=== PATIENT | female | born 1980 | race African-American/Black ===

== ENCOUNTER 2025-10-18 12:37 | Outpatient (REF) | payer MEDICAID, SELFPAY ==
--- OUTSIDE RECORDS SUMMARY | 2025-10-18 12:39 | XMS_ITS | Clinical Summary ---
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 aspirin chewable tablet 81 mg Chew and swallow 81 mg by mouth 3 times a week. Every Thursday, Thu, Thursday 1 Active benztropine (COGENTIN) 1 mg tablet Take 1 mg by mouth every night. 1 Active famotidine (PEPCID) 40 mg tablet Take 40 mg by mouth once a day. 1 Active traZODone (DESYREL) 100 mg tablet Take 50 mg by mouth nightly. 1 Active venlafaxine (EFFEXOR) 75 mg tablet Take 112.5 mg by mouth every morning. Provider chagned to XR formulation, no good documentation Active LORazepam (Ativan) 1 mg tablet Take 1 mg by mouth nightly. Active albuterol (PROAIR HFA,VENTOLIN HFA) 90 mcg inhaler Inhale 2 puffs by mouth every 6 hours as needed for wheezing or shortness of breath (via trach). Active acetaminophen (TYLENOL) 325 mg tablet Take 650 mg by mouth every 6 hours as needed for pain or fever. Active divalproex sprinkle (DEPAKOTE SPRINKLE) 125 mg capsule Take 1,750 mg by mouth every night. Active lurasidone (LATUDA) 80 mg tablet Take 80 mg by mouth 2 (two) times a day. Active furosemide (LASIX) 20 mg tablet Take 40 mg by mouth once a day. Active metFORMIN (GLUCOPHAGE) 500 mg tablet Take 1,000 mg by mouth 2 times a day with meals. Active losartan (COZAAR) 25 mg tablet Take 12.5 mg by mouth once a day. Active OLANZapine (ZyPREXA) 5 mg tablet Take 10 mg by mouth nightly. Active OLANZapine (ZyPREXA) 5 mg tablet Take 5 mg by mouth every morning. Active thiamine HCl (VITAMIN B1) 100 mg tablet Take 100 mg by mouth once a day. Active topiramate sprinkle (TOPAMAX SPRINKLE) 25 mg capsule Take 25 mg by mouth 2 times a day. Active simvastatin (ZOCOR) 5 mg tablet Take 1 tablet (5 mg total) by mouth nightly. 5 Active nicotine polacrilex (NICORETTE) [address] 1 each (2 mg total) between cheek and gums every hour as needed for nicotine cravings. 5 Active senna (SENOKOT) 8.6 mg tablet Take 2 tablets (17.2 mg total) by mouth daily as needed for constipation. 5 Active polyethylene glycol 3350 (MIRALAX) 17 gram packet Take 1 packet (17 g total) by mouth once a day. Mix powder in 4 to 8 oz of water, juice, coffee, or tea prior to administration. 5 Active Active Problems Patient Care Coordination No te Formatting of this note migh t be different from the original. [place] Medicaid #[id number] Problem Noted Date Diagnosed Date Nocturnal hypoxia 01/30/2025 Assessment & Plan (02/27/2025 6:06 PM EDT): Patient with drop in O2 saturations in the 60-70's while sleeping on review of continuous pulse ox trends. She has needed up to 6L O2 to maintain saturations. Work-up obtained after patient with high O2 requirements with repeat CXR 01/30 which did note new onset high hemidiaphragms with low lung volumes and underaeration at both bases. Bicarb bas been WNL on BMPs throughout admission. -Continue nocturnal supplemental O2 as per facility policy -Sleep medicine referral placed on discharge. Patient will need sleep study performed. Assessment & Plan (02/27/2025 5:35 PM EDT): Patient with drop in O2 saturations in the 60-70's while sleeping on review of continuous pulse ox trends. She has needed up to 6L O2 to maintain saturations. Work-up obtained after patient with high O2 requirements with repeat CXR 01/30 which did note new onset high hemidiaphragms with low lung volumes and underaeration at both bases. - Continue nocturnal O2 supplementation via NC, and also when napping - Monitor bicarb on BMP as needed - outpt sleep study Assessment & Plan (02/16/2025 4:41 PM EDT): Patient with drop in O2 saturations in the 60-70's while sleeping on review of continuous pulse ox trends. She has needed up to 6L O2 to maintain saturations. Work-up obtained after patient with high O2 requirements with repeat CXR 01/30 which did note new onset high hemidiaphragms with low lung volumes and underaeration at both bases. Pt would benefit from sleep study, however this is unlikely able to be performed inpatient. - Continue nocturnal O2 supplementation via NC, and also when napping - Monitor bicarb on BMP as needed, - Was ordered for polysomnogram on 02/09, however suspect this will need to be performed in the outpatient setting. Will plan to place referral upon discharge. Assessment & Plan (02/15/2025 3:26 PM EDT): Patient with drop in O2 saturations in the 60-70's while sleeping on review of continuous pulse ox trends. She has needed up to 6L O2 to maintain saturations. Work-up obtained after patient with high O2 requirements with repeat CXR 01/30 which did note new onset high hemidiaphragms with low lung volumes and underaeration at both bases. Pt would benefit from sleep study, however this is unlikely able to be performed inpatient. - Continue nocturnal O2 supplementation via NC, and also when napping - Monitor bicarb on BMP as needed, - Was ordered for polysomnogram on 02/09, however suspect this will need to be performed in the outpatient setting. Will plan to place referral upon discharge. Assessment & Plan (02/14/2025 6:02 PM EDT): Patient with drop in O2 saturations in the 60-70's while sleeping on review of continuous pulse ox trends. She has needed up to 6L O2 to maintain saturations. Work-up obtained after patient with high O2 requirements with repeat CXR 01/30 which did note new onset high hemidiaphragms with low lung volumes and underaeration at both bases. Pt would benefit from sleep study, however this is unlikely able to be performed inpatient. - Continue nocturnal O2 supplementation via NC, and also when napping - Monitor bicarb on BMP as needed, - Was ordered for polysomnogram on 02/09, however suspect this will need to be performed in the outpatient setting. Will plan to place referral upon discharge. Assessment & Plan (02/10/2025 12:25 PM EDT): Patient with drop in O2 saturations in the 40's while sleeping on review of continuous pulse ox trends. She has needed up to 6L O2 31 FiO2 to maintain saturations. Work-up obtained after 01/29 --> 7 night after patient with high O2 requirements did note new onset high hemidiaphragms, resulting in low lung volumes. Needing sleep study, and given prolonged hospital stay will try to perform here. - Follow up polysomnogram - Continue nocturnal O2 supplementation via NC, and also when napping - Monitor bicarb on BMP as needed Assessment & Plan (02/09/2025 9:58 AM EDT): Patient with drop in O2 saturations in the 40's while sleeping on review of continuous pulse ox trends. She has needed up to 6L O2 31 FiO2 to maintain saturations. Work-up obtained after 01/29 --> 7 night after patient with high O2 requirements did note new onset high hemidiaphragms, resulting in low lung volumes. Needing sleep study, and given prolonged hospital stay will perform here. -Follow up polysomnogram - Continue nocturnal O2 supplementation via NC, and also when napping - Monitor bicarb on BMP as needed Assessment & Plan (02/07/2025 1:48 PM EDT): Patient with drop in O2 saturations in the 40's while sleeping on review of continuous pulse ox trends. She has needed up to 6L O2 31 FiO2 to maintain saturations. Work-up obtained after 01/29 --> 7 night after patient with high O2 requirements did note new onset high hemidiaphragms, resulting in low lung volumes. Patient will need outpatient sleep study - Continue nocturnal O2 supplementation via NC, and also when napping - Monitor bicarb on BMP as needed Assessment & Plan (02/01/2025 4:26 PM EDT): Patient with drop in O2 saturations in the 40's while sleeping on review of continuous pulse ox trends. She has needed up to 6L O2 31 FiO2 to maintain saturations. Work-up obtained after 01/29 --> 7 night after patient with high O2 requirements did note new onset high hemidiaphragms, resulting in low lung volumes. - Again, patient will need outpatient sleep study - Continue nocturnal O2, and encourage O2 when napping - Monitor bicarb on BMP as needed - As noted under shortness of breath problem, continue to monitor closely and repeat CT PE study pending clinical course. Assessment & Plan (01/31/2025 2:33 PM EDT): Patient with drop in O2 saturations in the 40's while sleeping on review of continuous pulse ox trends. She has needed up to 6L O2 31 FiO2 to maintain saturations. Work-up obtained after 01/29 --> 7 night after patient with high O2 requirements did note new onset high hemidiaphragms, resulting in low lung volumes. - Again, patient will need outpatient sleep study - Continue nocturnal O2, and encourage O2 when napping - Monitor bicarb on BMP as needed - As noted under shortness of breath problem, continue to monitor closely and repeat CT PE study pending clinical course. Assessment & Plan (01/30/2025 5:00 PM EDT): Patient with drop in O2 saturations in the 70's, reported to have been as low as 60's, with sleeping. She has needed up to 6L O2 to maintain saturations. Work-up obtained after 01/29 --> 7 night after patient with high O2 requirements did note new onset high hemidiaphragms, resulting in low lung volumes. - Again, patient will need outpatient sleep study - Continue nocturnal O2, and encourage O2 when napping - Monitor bicarb on BMP as needed Social problem 11/11/2024 Assessment & Plan (02/27/2025 6:02 PM EDT): RESOLVED at time of discharge. Patient with HCP affirmation 01/03/[address]25 [address] plan in place. Assessment & Plan (02/27/2025 5:35 PM EDT): Patient is a resident of [place] and her family resides there currently. Her invoked HCP, brothmayelni Husain, wants her to be placed in [place] LTC. [facility] [employer] completed [place] application september, has not yet been approved. Our SW reached out to [facility] who recommended transfer to [facility] due to residency, family, finances and application all tied to [place]. SW referred pt to [facility]. Patient accepted to [facility]. Bed available on Wednesday 02/28. Will tell the patient of the plan on Tuesday 02/27 in case there are any issues with the discharge. -SW and CM have been working on appropriate placement. -Healthcare agent affirmed 01/03 Assessment & Plan (02/16/2025 4:41 PM EDT): Patient is a resident of [place] and her family resides there currently. Her invoked HCP, brother Rodrigue, wants her to be placed in [place] LTC. [facility] [employer] [facility] completed [place] L[place] application september, has not yet been approved. Our SW reached out to [facility] who recommended transfer to [facility] due to residency, family, finances and application all tied to [place]. SW referred pt to [facility]. -SW and CM have been working on appropriate placement. -Healthcare agent affirmed 01/03 -Pt accepted at [facility] for LTC, awaiting bed availability. Assessment & Plan (02/15/2025 3:26 PM EDT): Patient is a resident of [place] and her family resides there currently. Her invoked HCP, brother Rodrigue, wants her to be placed in [place] LTC. [facility] [employer] [facility] completed [place] L[place] application september, has not yet been approved. Our SW reached out to [facility] who recommended transfer to [facility] due to residency, family, finances and application all tied to [place]. SW referred pt to [facility]. -SW and CM have been working on appropriate placement. -Healthcare agent affirmed 01/03 -Pt accepted at [facility] for LTC, awaiting bed availability. Assessment & Plan (02/14/2025 6:02 PM EDT): Patient is a resident of [place] and her family resides there currently. Her invoked HCP, brother Rodrigue, wants her to be placed in [place] L[place]. [facility] [employer] completed [place] application september, has not yet been approved. Our SW reached out to [facility] who recommended transfer to [facility] due to residency, family, finances and application all tied to [place]. SW referred pt to [facility]. -SW and CM have been working on appropriate placement. -Healthcare agent affirmed 01/03 -Pt accepted at [facility] for LTC, awaiting bed availability. Assessment & Plan (02/10/2025 12:24 PM EDT): Patient is a resident of [place] and her family resides there currently. Her invoked HCP, brother Rodrigue, wants her to be placed [place] L[place]. [facility] [employer] [facility] completed [place] application sept[place], has not yet been approved. Our SW reached out to [facility] who recommended transfer to [facility] due to residency, family, finances and application all tied to [place]. SW referred pt to [facility]. -SW and CM have been working on appropriate placement. -Healthcare agent affirmed 01/03 -Now awaiting bed availability at [facility] for LTC. She has already been accepted but bed has not opened. Assessment & Plan (02/09/2025 9:58 AM EDT): Patient is a resident of [place] and her family resides there currently. Her invoked HCP, lauraer Rodrigue, wants her to be placed in [place] L[place]. [facility] [employer] [facility] completed [place] application sept[place], has not yet been approved. Our SW reached out to [facility] who recommended transfer to [facility] due to residency, family, finances and application all tied to [place]. SW referred pt to [facility]. -SW and CM have been working on appropriate placement. -Healthcare agent affirmed 01/03 -Now awaiting bed availability at [facility] for LTC. She has already been accepted but bed has not opened. Assessment & Plan (02/04/2025 11:56 AM EDT): Patient is a resident of [place] and her family resides there currently. Her invoked HCP, brothmayelin Husain, wants her to be placed [place]. [facility] [facility] completed [place] application sept[place], has not yet been approved. Our SW reached out to [facility] who recommended transfer to [facility] due to residency, family, finances and application all tied to [place]. SW referred pt to [facility]. -SW and CM have been working on appropriate placement. -Healthcare agent affirmed 01/03 -Now awaiting bed availability at [facility] for LTC. She has already been accepted. Assessment & Plan (02/01/2025 4:26 PM EDT): Patient is a resident of [place] and her family resides there currently. Her invoked HCP, brother Rodrigue, wants her to be placed [place]. [facility] [employer] [facility] completed [place] sept[place], has not yet been approved. Our SW reached out to [facility] who recommended transfer to [facility] due to residency, family, finances and application all tied to [place]. SW referred pt to [facility]. -SW and CM have been working on appropriate placement. -Healthcare agent affirmed 01/03 -Now awaiting bed availability at [facility] for LTC, already accepted Assessment & Plan (01/31/2025 11:43 AM EDT): Patient is a resident of [place] and her family resides there currently. Her invoked HCP, brother Rodrigue, wants her to be placed [place]. [facility] [employer] [facility] completed [place] sept[place], has not yet been approved. Our SW reached out to [facility] who recommended transfer to [facility] due to residency, family, finances and application all tied to [place]. SW referred pt to [facility]. -SW and CM have been working on appropriate placement. -Healthcare agent affirmed 01/03 -Now awaiting bed availability at [facility] for LTC, already accepted Assessment & Plan (01/30/2025 5:00 PM EDT): Patient is a resident of [place] and her family resides there currently. Her invoked HCP, brothmayelin Husain, wants her to be placed [place]. [facility] [employer] [facility] completed [place] application sept[place], has not yet been approved. Our SW reached out to [facility] who recommended transfer to [facility] due to residency, family, finances and application all tied to [place]. SW referred pt to [facility]. -SW and CM have been working on appropriate placement. -Healthcare agent affirmed 01/03 -Now awaiting bed availability at [facility] for LTC, already accepted Assessment & Plan (01/08/2025 10:30 AM EDT): Patient is a resident of [place] and her family resides there currently. Her invoked HCP, brother Rodrigue, wants her to be placed [place]. [facility] [employer] [facility] completed [place] sept[place], has not yet been approved. Our SW reached out to [facility] who recommended transfer to [facility] due to residency, family, finances and application all tied to [place]. SW referred pt to [facility]. -SW and CM collaboration for dispo planning. -Healthcare agent affirmed 01/03 -Now awaiting bed availability at [facility] for LTC, already accepted Assessment & Plan (01/07/2025 12:00 PM EDT): Patient is a resident of [place] and her family resides there currently. Her invoked HCP, brother Rodrigue, wants her to be placed [place]. [facility] [employer] [facility] completed [place] sept[place], has not yet been approved. Our SW reached out to [facility] who recommended transfer to [facility] due to residency, family, finances and application all tied to [place]. SW referred pt to [facility]. -SW and CM collaboration for dispo planning. -Healthcare agent affirmed 01/03 -Now awaiting bed availability at [facility] for LTC, already accepted Assessment & Plan (01/06/2025 2:02 AM EDT): Patient is a resident of [place] and her family resides there currently. Her invoked HCP, brother Rodrigue, wants her to be placed [place]. [facility] [employer] [facility] completed [place] sept[place], has not yet been approved. Our SW reached out to [facility] who recommended transfer to [facility] due to residency, family, finances and application all tied to [place]. SW referred pt to [facility]. -SW and CM collaboration for dispo planning. -Healthcare agent affirmed 01/03 -Now awaiting bed availability at [facility] for LTC, already accepted Assessment & Plan (12/30/2024 2:21 PM EST): Patient is a resident of [place] and her family resides there currently. Her invoked HCP, brother Rodrigue, wants her to be placed [place]. Patient was accepted to [facility] 4 years ago, at that time her family wanted placement in [place] however no [place] LTC's would accept. [facility] accepts [place] residents and her stay was being financed through [place] [employer]. [facility] [employer] [facility] completed [place] application september, has not yet been approved. Our SW reached out to [facility] who recommended transfer [place] hospital due to residency, family, finances and application all tied to [place]. Patient's cognition with decline 2/2 anoxic brain injury, however behavioral concerns 2/2 psych diagnoses of schizophrenia and bipolar disorder. Patient was accepted by [facility] for LTC and was waiting an open LTC bed. L[place] Medicaid application completed by [facility] [employer] -SW assisting, now just awaiting LTC bed Assessment & Plan (12/23/2024 11:46 AM EST): Patient is a resident of [place] and her family resides there currently. Her invoked HCP, brother Rodrigue, wants her to be placed in [place] LTC. Patient was accepted to [facility] 4 years ago, at that time her family wanted placement [place] however no [place] LTC's would accept. [facility] accepts [place] residents and [facility] [employer] [facility] completed [place] application september, has not yet been approved. Our SW reached out to [facility] who recommended transfer to [place] hospital due to residency, family, finances and application all tied to [place]. Patient's cognition with decline 2/2 anoxic brain injury, however behavioral concerns 2/2 psych diagnoses of schizophrenia and bipolar disorder. Patient was accepted by [facility] for LTC and was waiting an open LTC bed. L[place] Medicaid application completed by [facility] [employer]. -SW assisting. Assessment & Plan (12/19/2024 11:19 AM EST): Patient is currently awaiting placement in LTC facility. Patient is a resident of [place] and her family resides there currently. Her invoked HCP, brother Rodrigue, wants her to be placed in [place] L[place]. Patient was accepted to [facility] 4 years ago, at that time her family wanted placement [place] however no [place] LTC's would accept. [facility] accepts [place] residents and her stay [facility]. [facility] [employer] [facility] completed [place] application september, has not yet been approved. Our SW reached out to [facility] who recommended transfer to [place] hospital due to residency, family, finances and application all tied to [place]. Patient's cognition with decline 2/2 anoxic brain injury, however behavioral concerns 2/2 psych diagnoses of schizophrenia and bipolar disorder. It is reasonable to think that due to these psychiatric diagnoses causing behavioral disturbances that she will be able to be placed in [facility] facility. Patient accepted by [facility] for LTC but waiting on open LTC bed. L[place] application completed by [facility] [employer]. -SW closely following - Accepted by [facility] for LTC bed placement, TB results from 11/29 resulted negative, only discharge barrier is bed availability currently Assessment & Plan (12/13/2024 4:20 PM EST): Patient is currently awaiting placement in LTC facility. Patient is a resident of [place] and her family resides there currently. Her invoked HCP, brother Rodrigue, wants her to be placed [place]. Patient was accepted to [facility] 4 years ago, at that time her family wanted placement [place] no [place] LTC's would accept. [facility] accepts [place] residents and her stay was being financed through [place] [employer]. [facility] completed [place] LTC application mid September, has not yet been approved. Our SW reached out to [facility] who recommended transfer [place] [facility] due to residency, family, finances and application all tied to [place]. Patient's cognitive with decline 2/2 anoxic brain injury, however behavioral concerns 2/2 psych diagnoses of schizophrenia and bipolar disorder. It is reasonable to think that due to these psychiatric diagnoses causing behavioral disturbances that she will be able to be placed in [facility] facility. Patient accepted by [facility] for LTC but waiting on open LTC bed. L[place] application completed by [facility] [employer]. -SW closely following - Accepted by [facility] for LTC bed placement, TB results from 11/29 resulted negative, only discharge barrier is bed availability currently Assessment & Plan (12/12/2024 5:04 PM EST): Patient is currently awaiting placement in LTC facility. Patient is a resident of [place] and her family resides there currently. Her invoked HCP, brother Rodrigue, wants her to be placed [place]. Patient was accepted to [facility] 4 years ago, at that time her family wanted placement [place] no [place] LTC's would accept. [facility] accepts [place] residents and her stay was being financed through [place] [employer]. [facility] [employer] [facility] completed [place] L[place] application mid September, has not yet been approved. Our SW reached out to [facility] who recommended transfer [place] hospital due to residency, family, finances and application all tied to [place]. Patient's cognitive with decline 2/2 anoxic brain injury, however behavioral concerns 2/2 psych diagnoses of schizophrenia and bipolar disorder. It is reasonable to think that due to these psychiatric diagnoses causing behavioral disturbances that she will be able to be placed in [facility] facility. Patient accepted by [facility] for LTC but waiting on open LTC bed. L[place] application completed by [employer]. -SW closely following - Accepted by [facility] for LTC bed placement, TB results from 11/29 resulted negative, only discharge barrier is bed availability currently Assessment & Plan (12/11/2024 2:18 PM EST): Patient is currently awaiting placement in LTC facility. Patient is a resident of [place] and her family resides there currently. Her invoked HCP, brother Rodrigue, wants her to be placed in [place] LTC. Patient was accepted [facility] 4 years ago, at that time her family wanted placement [place] no [place] LTC's [place] accept. [facility] accepts [place] residents and her stay was being financed through [place] [employer]. [employer] completed [place] LTC application september, has not yet been approved. Our SW reached out to [facility] who [facility] [place] [facility] due to residency, family, finances and application all tied to [place]. Patient's cognitive with decline 2/2 anoxic brain injury, however behavioral concerns 2/2 psych diagnoses of schizophrenia and bipolar disorder. It is reasonable to think that due to these psychiatric diagnoses causing behavioral disturbances that she will be able to be placed in [facility]. Patient accepted by [facility] for LTC but waiting on open LTC bed. L[place] completed by [employer]. -SW closely following - Accepted by [facility] for LTC bed placement, TB results from 11/29 resulted negative, only discharge barrier is bed availability currently Assessment & Plan (12/10/2024 5:07 PM EST): Patient is currently awaiting placement in LTC facility. Patient is a resident of [place] and her family resides there currently. Her invoked HCP, brother Rodrigue, wants her to be placed [place]. Patient was accepted to [facility] 4 years ago, at that time her family wanted [place] no [place] LTC's [place]. [facility] accepts [place] residents and her stay was being financed through [place] [employer]. [employer] completed [place] LTC application september, has not yet been approved. Our SW reached out to [facility] who [facility] due to residency, family, finances and application all tied to [place]. Patient's cognitive with decline 2/2 anoxic brain injury, however behavioral concerns 2/2 psych diagnoses of schizophrenia and bipolar disorder. It is reasonable to think that due to these psychiatric diagnoses causing behavioral disturbances that she will be able to be placed in [facility] facility. Patient accepted by [facility] for LTC but waiting on open LTC bed. L[place] Medicaid [place] completed by [employer]. -SW closely following - Accepted by [facility] for LTC bed placement, TB results from 11/29 resulted negative, only discharge barrier is bed availability currently Assessment & Plan (12/03/2024 2:46 PM EST): Patient is currently awaiting placement in LTC facility. Patient is a resident of [place] and her family resides there currently. Her invoked HCP, brother Rodrigue, wants her to be placed [place]. Patient was accepted to [facility] 4 years ago, at that time her family wanted [place] LTC's [place]. [facility] accepts [place] residents and her stay was being financed through [place] [employer]. [employer] completed [place] LTC application september, has not yet been approved. Our SW reached out to [facility] who [facility] due to residency, family, finances and application all tied to [place]. Patient's cognitive with decline 2/2 anoxic brain injury, however behavioral concerns 2/2 psych diagnoses of schizophrenia and bipolar disorder. It is reasonable to think that due to these psychiatric diagnoses causing behavioral disturbances that she will be able to be placed in [facility] facility. Patient accepted by [facility] for LTC but waiting on open LTC bed. L[place] Medicaid application completed by [employer]. -SW closely following - Accepted by [facility] for LTC bed placement, TB results from 11/29 resulted negative, only discharge barrier is bed availability currently Assessment & Plan (12/02/2024 11:16 AM EST): Patient is currently awaiting placement in LTC facility. Patient is a resident of [place] and her family resides there currently. Her invoked HCP, brother Rodrigue, wants her to be placed [place]. Patient was accepted [facility] 4 years ago, at that time her family wanted [place] LTC's [place]. [facility] accepts [place] residents and her stay was being financed through [employer]. [employer] completed [place] LTC application mid September, has not yet been approved. Our SW reached out to [facility] who [facility] due to residency, family, finances and application all tied to [place]. Patient's cognitive with decline 2/2 anoxic brain injury, however behavioral concerns 2/2 psych diagnoses of schizophrenia and bipolar disorder. It is reasonable to think that due to these psychiatric diagnoses causing behavioral disturbances that she will be able to be placed in [facility] facility. Patient accepted by [facility] for LTC but waiting on open LTC bed. L[place] completed by [employer]. -SW closely following - Accepted by [facility] for LTC bed placement, TB results from 11/29 resulted negative, only discharge barrier is bed availability currently Assessment & Plan (12/01/2024 2:10 PM EST): Patient is currently awaiting placement in LTC facility. Patient is a resident of [place] and her family resides there currently. Her invoked HCP, brother Rodrigue, wants her to be placed [place]. Patient was accepted [facility] 4 years ago, at that time her family wanted [place] no [place] LTC's [place]. [facility] accepts [place] residents and her stay was being financed through [place] [employer]. [employer] completed [place] L[place] application mid September, has not yet been approved. Our SW reached out to [facility] who [facility] due to residency, family, finances and application all tied to [place]. Patient's cognitive with decline 2/2 anoxic brain injury, however behavioral concerns 2/2 psych diagnoses of schizophrenia and bipolar disorder. It is reasonable to think that due to these psychiatric diagnoses causing behavioral disturbances that she will be able to be placed in [facility] facility. Patient accepted by [facility] for LTC but waiting on open LTC bed. LTC [place] Medicaid application completed by [employer]. -SW closely following - Accepted by [facility] for LTC bed placement, pending TB test results (ordered 11/29) Assessment & Plan (11/30/2024 3:53 PM EST): Patient is currently awaiting placement in LTC facility. Patient is a resident of [place] and her family resides there currently. Her invoked HCP, brother Rodrigue, wants her to be placed [place]. Patient was accepted to [facility] 4 years ago, at that time her family wanted [place] LTC's [place]. [facility] accepts [place] residents and her stay was being financed through [place] [employer]. [employer] completed [place] L[place] application mid September, has not yet been approved. Our SW reached out to [facility] who [facility] due to residency, family, finances and application all tied to [place]. Patient's cognitive with decline 2/2 anoxic brain injury, however behavioral concerns 2/2 psych diagnoses of schizophrenia and bipolar disorder. It is reasonable to think that due to these psychiatric diagnoses causing behavioral disturbances that she will be able to be placed in [facility]. Patient accepted by [facility] for LTC but waiting on open LTC bed. L[place] Medicaid application completed by [employer]. -SW closely following - Accepted by [facility] for LTC bed placement, pending TB test results (ordered 11/29) Assessment & Plan (11/29/2024 10:52 AM EST): Patient is currently awaiting placement in LTC facility. Patient is a resident of [place] and her family resides there currently. Her invoked HCP, brother Rodrigue, wants her to be placed [place]. Patient was accepted [facility] 4 years ago, at that time her family wanted [place] no [place] LTC's would [place]. [facility] accepts [place] residents and her stay was being financed through [place] [employer]. [employer] completed [place] L[place] sept[place], has not yet been approved. Our SW reached out to [facility] who [facility] due to residency, family, finances and application all tied to [place]. Patient's cognitive with decline 2/2 anoxic brain injury, however behavioral concerns 2/2 psych diagnoses of schizophrenia and bipolar disorder. It is reasonable to think that due to these psychiatric diagnoses causing behavioral disturbances that she will be able to be placed in [facility] facility. Patient accepted by [facility] for LTC but waiting on open LTC bed. LTC [place] Medicaid application completed by [employer]. -SW closely following - Accepted by [facility] for LTC bed placement, pending TB test results (ordered 11/29) Assessment & Plan (11/28/2024 10:13 AM EST): Patient is currently awaiting placement in LTC facility. Patient is a resident of [place] and her family resides there currently. Her invoked HCP, brother Rodrigue, wants her to be placed [place]. Patient was accepted to [facility] 4 years ago, at that time her family wanted [place] no [place] LTC's would accept. [facility] accepts [place] residents and her stay was being financed through [place] [employer]. [employer] completed [place] L[place] sept[place], has not yet been approved. Our SW reached out to [facility] who [facility] due to residency, family, finances and application all tied to [place]. Patient's cognitive with decline 2/2 anoxic brain injury, however behavioral concerns 2/2 psych diagnoses of schizophrenia and bipolar disorder. It is reasonable to think that due to these psychiatric diagnoses causing behavioral disturbances that she will be able to be placed in [facility] facility. Patient accepted by [facility] for LTC but waiting on open LTC bed. LTC [place] Medicaid application completed by [employer]. -SW closely following - Accepted by [facility] for LTC bed placement. Level 1 PASRR completed. Waiting on Level 2 PASRR and bed availability per SW. Assessment & Plan (11/27/2024 10:04 AM EST): Patient is currently awaiting placement in LTC facility. Patient is a resident of [place] and her family resides there currently. Her invoked HCP, brother Rodrigue, wants her to be placed [place]. Patient was accepted to [facility] 4 years ago, at that time her family wanted [place] no [place] LTC's would accept. [facility] accepts [place] residents and her stay was being financed through [employer]. [employer] completed [place] L[place] application september, has not yet been approved. Our SW reached out to [facility] who [facility] due to residency, family, finances and application all tied to [place]. Patient's cognitive with decline 2/2 anoxic brain injury, however behavioral concerns 2/2 psych diagnoses of schizophrenia and bipolar disorder. It is reasonable to think that due to these psychiatric diagnoses causing behavioral disturbances that she will be able to be placed in [facility] facility. Patient accepted by [facility] for LTC but waiting on open LTC bed. LTC [place] Medicaid application completed by [employer]. -SW closely following - Accepted by [facility] for LTC bed placement. Level 1 PASRR completed. Waiting on Level 2 PASRR and bed availability per SW. Assessment & Plan (11/26/2024 11:05 AM EST): Patient is currently awaiting placement in LTC facility. Patient is a resident of [place] and her family resides there currently. Her invoked HCP, brother Rodrigue, wants her to be placed [place]. Patient was accepted to [facility] 4 years ago, at that time her family wanted [place] no [place] LTC's would accept. [facility] accepts [place] residents and her stay was being financed through [employer]. [employer] completed [place] L[place] application september, has not yet been approved. Our SW reached out to [facility] who [facility] due to residency, family, finances and application all tied to [place]. Patient's cognitive with decline 2/2 anoxic brain injury, however behavioral concerns 2/2 psych diagnoses of schizophrenia and bipolar disorder. It is reasonable to think that due to these psychiatric diagnoses causing behavioral disturbances that she will be able to be placed in [facility]. Patient accepted by [facility] for LTC but waiting on open LTC bed. L[place] Medicaid application completed by [employer]. -SW closely following - Accepted by [facility] for LTC bed placement. Level 1 PASRR completed. Waiting on Level 2 PASRR and bed availability per SW. Assessment & Plan (11/25/2024 12:51 PM EST): Patient is currently awaiting placement in LTC facility. Patient is a resident of [place] and her family resides there currently. Her invoked HCP, brother Rodrigue, wants her to be placed [place]. Patient was accepted to [facility] 4 years ago, at that time her family wanted [place] no [place] LTC's would accept. [facility] accepts [place] residents and her stay was being financed through [place] [employer]. [employer] completed [place] L[place] application mid September, has not yet been approved. Our SW reached out to [facility] who [facility] due to residency, family, finances and application all tied to [place]. Patient's cognitive with decline 2/2 anoxic brain injury, however behavioral concerns 2/2 psych diagnoses of schizophrenia and bipolar disorder. It is reasonable to think that due to these psychiatric diagnoses causing behavioral disturbances that she will be able to be placed in [facility]. Patient accepted by [facility] for LTC but waiting on open LTC bed. L[place] Medicaid application completed by [employer]. -SW closely following - Accepted by [facility] for LTC bed placement. Level 1 PASRR completed. Waiting on Level 2 PASRR and bed availability per SW. Assessment & Plan (11/24/2024 11:53 AM EST): Patient is currently awaiting placement in LTC facility. Patient is a resident of [place] and her family resides there currently. Her invoked HCP, brother Rodrigue, wants her to be placed [place]. Patient was accepted [facility] 4 years ago, at that time her family wanted [place] no [place] LTC's [place] accept. [facility] accepts [place] residents and her stay was being financed through [place] [employer]. [employer] completed [place] L[place] application september, has not yet been approved. Our SW reached out to [facility] who [facility] due to residency, family, finances and application all tied to [place]. Patient's cognitive with decline 2/2 anoxic brain injury, however behavioral concerns 2/2 psych diagnoses of schizophrenia and bipolar disorder. It is reasonable to think that due to these psychiatric diagnoses causing behavioral disturbances that she will be able to be placed in [facility] facility. [facility] but waiting on open LTC bed. LTC [place] Medicaid application completed by [employer]. -SW closely following - Accepted by [facility] for LTC bed placement. Level 1 PASRR completed. Waiting on Level 2 PASRR and bed availability per SW. Assessment & Plan (11/23/2024 2:21 PM EST): Patient is currently awaiting placement in LTC facility. Patient is a resident of [place] and her family resides there currently. Her invoked HCP, brother Rodrigue, wants her to be placed [place]. Patient was accepted to [facility] 4 years ago, at that time her [place] wanted [place] no [place] LTC's would accept. [facility] accepts [place] residents and her stay was being financed through [place] [employer]. [employer] completed [place] L[place] application september, has not yet been approved. Our SW reached out to [facility] who [facility] due to residency, family, finances and application all tied to [place]. Patient's cognitive with decline 2/2 anoxic brain injury, however behavioral concerns 2/2 psych diagnoses of schizophrenia and bipolar disorder. It is reasonable to think that due to these psychiatric diagnoses causing behavioral disturbances that she will be able to be placed in [facility]. [facility] but waiting on open LTC bed. LTC [place] Medicaid application completed by [employer]. -SW closely following - Accepted by [facility] for LTC bed placement. Level 1 PASRR completed. Waiting on Level 2 PASRR and bed availability per SW. Assessment & Plan (11/22/2024 1:16 PM EST): Patient is currently awaiting placement in LTC facility. Patient is a resident of [place] and her family resides there currently. Her invoked HCP, brother Rodrigue, wants her to be placed [place]. Patient was accepted to [facility] 4 years ago, at that time her family wanted [place] no [place] LTC's would accept. [facility] accepts [place] residents and her stay was being financed through [place] [employer]. [employer] completed [place] L[place] application mid September, has not yet been approved. Our SW reached out to [facility] who recommended [facility] due to residency, family, finances and application all tied to [place]. Patient's cognitive with decline 2/2 anoxic brain injury, however behavioral concerns 2/2 psych diagnoses of schizophrenia and bipolar disorder. It is reasonable to think that due to these psychiatric diagnoses causing behavioral disturbances that she will be able to be placed in [facility] facility. Patient accepted by [facility] for LTC but waiting on open LTC bed. LTC [place] Medicaid application completed by [employer]. Level [address] [place] PASRR completed by SW and emailed to Jeff in [place]. Brother has a tour of [facility] on 11/22. -SW closely following Benign skin lesion of face 10/22/2024 Assessment & Plan (12/19/2024 11:18 AM EST): Patient appears to have bilateral hyperpigmentation of her cheeks as well as her mandibular, neck, periorbital regions. These areas are nonblanching, not painful, not pruritic, not infectious appearing. Possible etiology includes acanthosis nigricans of the face, versus melasma. Patient does have diabetes which could be contributing factor. - Monitor for now Assessment & Plan (12/13/2024 4:20 PM EST): Patient appears to have bilateral hyperpigmentation of her cheeks as well as her mandibular, neck, periorbital regions. These areas are nonblanching, not painful, not pruritic, not infectious appearing. Possible etiology includes acanthosis nigricans of the face, versus melasma. Patient does have diabetes which could be contributing factor. - Monitor for now Assessment & Plan (12/12/2024 5:04 PM EST): Patient appears to have bilateral hyperpigmentation of her cheeks as well as her mandibular, neck, periorbital regions. These areas are nonblanching, not painful, not pruritic, not infectious appearing. Possible etiology includes acanthosis nigricans of the face, versus melasma. Patient does have diabetes which could be contributing factor. - Monitor for now Assessment & Plan (12/11/2024 2:18 PM EST): Patient appears to have bilateral hyperpigmentation of her cheeks as well as her mandibular, neck, periorbital regions. These areas are nonblanching, not painful, not pruritic, not infectious appearing. Possible etiology includes acanthosis nigricans of the face, versus melasma. Patient does have diabetes which could be contributing factor. - Monitor for now Assessment & Plan (12/10/2024 5:07 PM EST): Patient appears to have bilateral hyperpigmentation of her cheeks as well as her mandibular, neck, periorbital regions. These areas are nonblanching, not painful, not pruritic, not infectious appearing. Possible etiology includes acanthosis nigricans of the face, versus melasma. Patient does have diabetes which could be contributing factor. - Monitor for now Assessment & Plan (12/03/2024 2:46 PM EST): Patient appears to have bilateral hyperpigmentation of her cheeks as well as her mandibular, neck, periorbital regions. These areas are nonblanching, not painful, not pruritic, not infectious appearing. Possible etiology includes acanthosis nigricans of the face, versus melasma. Patient does have diabetes which could be contributing factor. - Monitor for now Assessment & Plan (12/02/2024 11:14 AM EST): Patient appears to have bilateral hyperpigmentation of her cheeks as well as her mandibular, neck, periorbital regions. These areas are nonblanching, not painful, not pruritic, not infectious appearing. Possible etiology includes acanthosis nigricans of the face, versus melasma. Patient does have diabetes which could be contributing factor. - Monitor for now Assessment & Plan (12/01/2024 2:10 PM EST): Patient appears to have bilateral hyperpigmentation of her cheeks as well as her mandibular, neck, periorbital regions. These areas are nonblanching, not painful, not pruritic, not infectious appearing. Possible etiology includes acanthosis nigricans of the face, versus melasma. Patient does have diabetes which could be contributing factor. - Monitor for now Assessment & Plan (11/30/2024 3:53 PM EST): Patient appears to have bilateral hyperpigmentation of her cheeks as well as her mandibular, neck, periorbital regions. These areas are nonblanching, not painful, not pruritic, not infectious appearing. Possible etiology includes acanthosis nigricans of the face, versus melasma. Patient does have diabetes which could be contributing factor. - Monitor for now Assessment & Plan (11/29/2024 10:52 AM EST): Patient appears to have bilateral hyperpigmentation of her cheeks as well as her mandibular, neck, periorbital regions. These areas are nonblanching, not painful, not pruritic, not infectious appearing. Possible etiology includes acanthosis nigricans of the face, versus melasma. Patient does have diabetes which could be contributing factor. - Monitor for now Assessment & Plan (11/28/2024 10:13 AM EST): Patient appears to have bilateral hyperpigmentation of her cheeks as well as her mandibular, neck, periorbital regions. These areas are nonblanching, not painful, not pruritic, not infectious appearing. Possible etiology includes acanthosis nigricans of the face, versus melasma. Patient does have diabetes which could be contributing factor. - Monitor for now Assessment & Plan (11/27/2024 10:04 AM EST): Patient appears to have bilateral hyperpigmentation of her cheeks as well as her mandibular, neck, periorbital regions. These areas are nonblanching, not painful, not pruritic, not infectious appearing. Possible etiology includes acanthosis nigricans of the face, versus melasma. Patient does have diabetes which could be contributing factor. - Monitor for now Assessment & Plan (11/26/2024 11:05 AM EST): Patient appears to have bilateral hyperpigmentation of her cheeks as well as her mandibular, neck, periorbital regions. These areas are nonblanching, not painful, not pruritic, not infectious appearing. Possible etiology includes acanthosis nigricans of the face, versus melasma. Patient does have diabetes which could be contributing factor. - Monitor for now Assessment & Plan (11/25/2024 12:51 PM EST): Patient appears to have bilateral hyperpigmentation of her cheeks as well as her mandibular, neck, periorbital regions. These areas are nonblanching, not painful, not pruritic, not infectious appearing. Possible etiology includes acanthosis nigricans of the face, versus melasma. Patient does have diabetes which could be contributing factor. - Monitor for now Assessment & Plan (11/24/2024 11:53 AM EST): Patient appears to have bilateral hyperpigmentation of her cheeks as well as her mandibular, neck, periorbital regions. These areas are nonblanching, not painful, not pruritic, not infectious appearing. Possible etiology includes acanthosis nigricans of the face, versus melasma. Patient does have diabetes which could be contributing factor. - Monitor for now Assessment & Plan (11/23/2024 2:21 PM EST): Patient appears to have bilateral hyperpigmentation of her cheeks as well as her mandibular, neck, periorbital regions. These areas are nonblanching, not painful, not pruritic, not infectious appearing. Possible etiology includes acanthosis nigricans of the face, versus melasma. Patient does have diabetes which could be contributing factor. - Monitor for now Assessment & Plan (11/16/2024 2:29 PM EST): Patient appears to have bilateral hyperpigmentation of her cheeks as well as her mandibular, neck, periorbital regions. These areas are nonblanching, not painful, not pruritic, not infectious appearing. Possible etiology includes acanthosis nigricans of the face, versus melasma. Patient does have diabetes which could be contributing factor. - Monitor for now, Derm consult if acute change or findings become concerning Assessment & Plan (11/06/2024 2:12 PM EST): Patient appears to have bilateral hyperpigmentation of her cheeks as well as her mandibular, neck, periorbital regions. These areas are nonblanching, not painful, not pruritic, not infectious appearing. Possible etiology includes acanthosis nigricans of the face, versus melasma. Patient does have diabetes which could be contributing factor. -Monitor for now, Derm consult if acute change or findings become concerning Assessment & Plan (11/05/2024 11:29 AM EST): Patient appears to have bilateral hyperpigmentation of her cheeks as well as her mandibular, neck, periorbital regions. These areas are nonblanching, not painful, not pruritic, not infectious appearing. Possible etiology includes acanthosis nigricans of the face, versus melasma. Patient does have diabetes which could be contributing factor. -Monitor for now, Derm consult if acute change or findings become concerning Assessment & Plan (11/04/2024 10:11 AM EST): Patient appears to have bilateral hyperpigmentation of her cheeks as well as her mandibular, neck, periorbital regions. These areas are nonblanching, not painful, not pruritic, not infectious appearing. Possible etiology includes acanthosis nigricans of the face, versus melasma. Patient does have diabetes which could be contributing factor. -Monitor for now, Derm consult if acute change or findings become concerning Assessment & Plan (11/03/2024 10:30 AM EST): Patient appears to have bilateral hyperpigmentation of her cheeks as well as her mandibular, neck, periorbital regions. These areas are nonblanching, not painful, not pruritic, not infectious appearing. Possible etiology includes acanthosis nigricans of the face, versus melasma. Patient does have diabetes which could be contributing factor. -Monitor for now, Derm consult if acute change or findings become concerning Assessment & Plan (10/24/2024 2:20 PM EST): Patient appears to have bilateral hyperpigmentation of her cheeks as well as her mandibular, neck, periorbital regions. These areas are nonblanching, not painful, not pruritic, not infectious appearing. Possible etiology includes acanthosis nigricans of the face, versus melasma. Patient does have diabetes which could be contributing factor. Currently rechecking hemoglobin A1c to determine if patient needs to be better controlled. -Monitor for now, Derm consult if acute change or findings become concerning Assessment & Plan (10/23/2024 11:08 AM EST): Patient appears to have bilateral hyperpigmentation of her cheeks as well as her mandibular, neck, periorbital regions. These areas are nonblanching, not painful, not pruritic, not infectious appearing. Possible etiology includes acanthosis nigricans of the face, versus melasma. Patient does have diabetes but has been well- controlled during this admission. -Monitor for now, Derm consult if acute change or findings become concerning Assessment & Plan (10/22/2024 2:58 PM EST): Patient appears to have bilateral hyperpigmentation of her cheeks as well as her mandibular, neck, periorbital regions. These areas are nonblanching, not painful, not pruritic, not infectious appearing. Possible etiology includes acanthosis nigricans of the face, versus melasma. Patient does have diabetes but has been well- controlled during this admission. -Monitor for now, Derm consult if acute change or findings become concerning Tachycardia 09/02/2024 Assessment & Plan (12/14/2024 4:31 PM EST): Notably found to be persistently tachycardic in the 90-110s. Asymptomatic. TTE unremarkable, LVEF of 60% no valvular disease. Serial EKGs showing sinus tachycardia. DDX: medication induced (benztropine, Depakote, Latuda) versus undiagnosed sleep apnea -Recommend outpatient sleep study Assessment & Plan (12/13/2024 4:20 PM EST): Notably found to be persistently tachycardic in the 90-110s. Asymptomatic. TTE unremarkable, LVEF of 60% no valvular disease. Serial EKGs showing sinus tachycardia. DDX: medication induced (benztropine, Depakote, Latuda) Vs 2/2 undiagnosed sleep apnea -Recommend outpatient sleep study Assessment & Plan (12/12/2024 5:04 PM EST): Notably found to be persistently tachycardic in the 90-110s. Asymptomatic. TTE unremarkable, LVEF of 60% no valvular disease. Serial EKGs showing sinus tachycardia. DDX: medication induced (benztropine, Depakote, Latuda) Vs 2/2 undiagnosed sleep apnea -Recommend outpatient sleep study Assessment & Plan (12/11/2024 2:18 PM EST): Notably found to be persistently tachycardic in the 90-110s. Asymptomatic. TTE unremarkable, LVEF of 60% no valvular disease. Serial EKGs showing sinus tachycardia. DDX: medication induced (benztropine, Depakote, Latuda) Vs 2/2 undiagnosed sleep apnea -Recommend outpatient sleep study Assessment & Plan (12/10/2024 5:07 PM EST): Notably found to be persistently tachycardic in the 90-110s. Asymptomatic. TTE unremarkable, LVEF of 60% no valvular disease. Serial EKGs showing sinus tachycardia. DDX: medication induced (benztropine, Depakote, Latuda) Vs 2/2 undiagnosed sleep apnea -Recommend outpatient sleep study Assessment & Plan (12/03/2024 2:46 PM EST): Notably found to be persistently tachycardic in the 90-110s. Asymptomatic. TTE unremarkable, LVEF of 60% no valvular disease. Serial EKGs showing sinus tachycardia. DDX: medication induced (benztropine, Depakote, Latuda) Vs 2/2 undiagnosed sleep apnea -Recommend outpatient sleep study Assessment & Plan (12/02/2024 11:14 AM EST): Notably found to be persistently tachycardic in the 90-110s. Asymptomatic. TTE unremarkable, LVEF of 60% no valvular disease. Serial EKGs showing sinus tachycardia. DDX: medication induced (benztropine, Depakote, Latuda) Vs 2/2 undiagnosed sleep apnea -Recommend outpatient sleep study Assessment & Plan (12/01/2024 2:10 PM EST): Notably found to be persistently tachycardic in the 90-110s. Asymptomatic. TTE unremarkable, LVEF of 60% no valvular disease. Serial EKGs showing sinus tachycardia. DDX: medication induced (benztropine, Depakote, Latuda) Vs 2/2 undiagnosed sleep apnea -Recommend outpatient sleep study Assessment & Plan (11/30/2024 3:53 PM EST): Notably found to be persistently tachycardic in the 90-110s. Asymptomatic. TTE unremarkable, LVEF of 60% no valvular disease. Serial EKGs showing sinus tachycardia. DDX: medication induced (benztropine, Depakote, Latuda) Vs 2/2 undiagnosed sleep apnea -Recommend outpatient sleep study Assessment & Plan (11/29/2024 10:52 AM EST): Notably found to be persistently tachycardic in the 90-110s. Asymptomatic. TTE unremarkable, LVEF of 60% no valvular disease. Serial EKGs showing sinus tachycardia. DDX: medication induced (benztropine, Depakote, Latuda) Vs 2/2 undiagnosed sleep apnea -Recommend outpatient sleep study Assessment & Plan (11/28/2024 10:13 AM EST): Notably found to be persistently tachycardic in the 90-110s. Asymptomatic. TTE unremarkable, LVEF of 60% no valvular disease. Serial EKGs showing sinus tachycardia. DDX: medication induced (benztropine, Depakote, Latuda) Vs 2/2 undiagnosed sleep apnea -Recommend outpatient sleep study Assessment & Plan (11/27/2024 10:04 AM EST): Notably found to be persistently tachycardic in the 90-110s. Asymptomatic. TTE unremarkable, LVEF of 60% no valvular disease. Serial EKGs showing sinus tachycardia. DDX: medication induced (benztropine, Depakote, Latuda) Vs 2/2 undiagnosed sleep apnea -Recommend outpatient sleep study Assessment & Plan (11/26/2024 11:05 AM EST): Notably found to be persistently tachycardic in the 90-110s. Asymptomatic. TTE unremarkable, LVEF of 60% no valvular disease. Serial EKGs showing sinus tachycardia. DDX: medication induced (benztropine, Depakote, Latuda) Vs 2/2 undiagnosed sleep apnea -Recommend outpatient sleep study Assessment & Plan (11/25/2024 12:51 PM EST): Notably found to be persistently tachycardic in the 90-110s. Asymptomatic. TTE unremarkable, LVEF of 60% no valvular disease. Serial EKGs showing sinus tachycardia. DDX: medication induced (benztropine, Depakote, Latuda) Vs 2/2 undiagnosed sleep apnea -Recommend outpatient sleep study Assessment & Plan (11/24/2024 11:53 AM EST): Notably found to be persistently tachycardic in the 90-110s. Asymptomatic. TTE unremarkable, LVEF of 60% no valvular disease. Serial EKGs showing sinus tachycardia. DDX: medication induced (benztropine, Depakote, Latuda) Vs 2/2 undiagnosed sleep apnea -Recommend outpatient sleep study Assessment & Plan (11/23/2024 2:21 PM EST): Notably found to be persistently tachycardic in the 90-110s. Asymptomatic. TTE unremarkable, LVEF of 60% no valvular disease. Serial EKGs showing sinus tachycardia. DDX: medication induced (benztropine, Depakote, Latuda) Vs 2/2 undiagnosed sleep apnea -Recommend outpatient sleep study Assessment & Plan (11/16/2024 2:28 PM EST): Notably found to be persistently tachycardic in the 90-110s. Asymptomatic. TTE unremarkable, LVEF of 60% no valvular disease. Serial EKGs showing sinus tachycardia. DDX: medication induced (benztropine, Depakote, Latuda) Vs 2/2 undiagnosed sleep apnea -Recommend outpatient sleep study Assessment & Plan (11/06/2024 2:57 PM EST): Notably found to be persistently tachycardic in the 90-110s. Asymptomatic. TTE unremarkable, LVEF of 60% no valvular disease. Serial EKGs showing sinus tachycardia. DDX: medication induced (benztropine, Depakote, Latuda) Vs 2/2 undiagnosed sleep apnea -Recommend outpatient sleep study. Assessment & Plan (11/05/2024 11:29 AM EST): Patient has been intermittently tachycardic 100-110's. Asymptomatic. She is satting well on RA and is without BLE swelling/pain/erythema, low suspicion for PE. TTE on 09/06 was unremarkable, with LVEF 60%, no WMA, no hemodynamically significant valvular disease. Patient has had multiple EKGs that are sinus/sinus tach. No palpitations or chest pain. Could possibly be side effects of psych meds including benztropine, Depakote, Latuda. Vs 2/2 undiagnosed sleep apnea -Monitor clinically Assessment & Plan (11/04/2024 10:11 AM EST): Patient has been intermittently tachycardic 100-110's. Asymptomatic. She is satting well on RA and is without BLE swelling/pain/erythema, low suspicion for PE. TTE on 09/06 was unremarkable, with LVEF 60%, no WMA, no hemodynamically significant valvular disease. Patient has had multiple EKGs that are sinus/sinus tach. No palpitations or chest pain. Could possibly be side effects of psych meds including benztropine, Depakote, Latuda. Vs 2/2 undiagnosed sleep apnea -Monitor clinically Assessment & Plan (11/03/2024 10:30 AM EST): Patient has been intermittently tachycardic 100-110's. Asymptomatic. She is satting well on RA and is without BLE swelling/pain/erythema, low suspicion for PE. TTE on 09/06 was unremarkable, with LVEF 60%, no WMA, no hemodynamically significant valvular disease. Patient has had multiple EKGs that are sinus/sinus tach. No palpitations or chest pain. -Could possibly be side effects of psych meds including benztropine, Depakote, Latuda. -Monitor clinically Assessment & Plan (10/24/2024 2:19 PM EST): Patient has been intermittently been tachycardic in the 100-110's. Asymptomatic. She is satting well on RA and is without BLE swelling/pain/erythema, low suspicion for PE contributing. TTE on 09/06 was unremarkable, with LVEF 60%, no WMA, no hemodynamically significant valvular disease. Patient has had multiple EKGs that are sinus/sinus tach most recently on 09/15. No palpitations, chest pain, visual changes. -Could possibly be side effects of psych meds including benztropine, Depakote, Latuda. -Monitor clinically Assessment & Plan (10/23/2024 11:10 AM EST): Patient has been intermittently been tachycardic in the 100-110's. Asymptomatic. She is satting well on RA and is without BLE swelling/pain/erythema, low suspicion for PE contributing. TTE on 09/06 was unremarkable, with LVEF 60%, no WMA, no hemodynamically significant valvular disease. Patient has had multiple EKGs that are sinus/sinus tach most recently on 09/15. No palpitations, chest pain, visual changes. -Could possibly be side effects of psych meds including benztropine, Depakote, Latuda. -Monitor clinically Assessment & Plan (10/14/2024 5:09 PM EST): Patient has been intermittently been tachycardic in the 100-110's. Asymptomatic. She is satting well on RA and is without BLE swelling/pain/erythema, low suspicion for PE contributing. Patient has had multiple EKGs that are sinus/sinus tach most recently on 09/15. Patient agreeable to TTE on 09/06 and this study was unremarkable, with LVEF 60%, no WMA, no hemodynamically significant valvular disease. -Could possibly be side effects of psych meds including benztropine, Depakote, Latuda. Assessment & Plan (09/30/2024 4:48 PM EST): Throughout admission, patient has been intermittently been tachycardic in the 100-110's. Patient asymptomatic. She is satting well on RA and is without BLE swelling/pain/erythema. Patient has had multiple EKGs that are sinus/sinus tach most recently on 09/15. Unclear if tachycardic readings are taken when patient is at rest, or is taken after any form of activity. Patient agreeable to TTE on 09/06 and this study was unremarkable, with LVEF 60%, no WMA, no hemodynamically significant valvular disease. -Possibly SE of psych meds including benztropine, Depakote, Latuda. -Patient has occasionally refused lovenox injections. If patient should become hypoxic or have concerns for peripheral DVT, will work-up for possible PE. Assessment & Plan (09/29/2024 1:51 PM EST): Throughout admission, patient has been intermittently been tachycardic in the 100-110's. Patient asymptomatic. She is satting well on RA and is without BLE swelling/pain/erythema. Patient has had multiple EKGs that are sinus/sinus tach most recently on 09/15. Unclear if tachycardic readings are taken when patient is at rest, or is taken after any form of activity. Patient agreeable to TTE on 09/06 and this study was unremarkable, with LVEF 60%, no WMA, no hemodynamically significant valvular disease. -Possibly SE of psych meds including benztropine, Depakote, Latuda. -Patient has occasionally refused lovenox injections. If patient should become hypoxic or have concerns for peripheral DVT, will work-up for possible PE. Assessment & Plan (09/28/2024 2:31 PM EST): Throughout admission, patient has been intermittently been tachycardic in the 100-110's. Patient asymptomatic. She is satting well on RA and is without BLE swelling/pain/erythema. Patient has had multiple EKGs that are sinus/sinus tach most recently on 09/06. Unclear if tachycardic readings are taken when patient is at rest, or is taken after any form of activity. Patient agreeable to TTE on 09/06 and this study was unremarkable, with LVEF 60%, no WMA, no hemodynamically significant valvular disease. -Possibly SE of psych meds including benztropine, Depakote, Latuda. -Patient has occasionally refused lovenox injections. If patient should become hypoxic or have concerns for peripheral DVT, will work-up for possible PE. Assessment & Plan (09/11/2024 11:00 AM EST): Throughout admission, patient has been intermittently been tachycardic in the 100-110's. Patient asymptomatic. She is satting well on RA and is without BLE swelling/pain/erythema. Patient has had multiple EKGs that are sinus/sinus tach most recently on 09/06. Unclear if tachycardic readings are taken when patient is at rest, or is taken after any form of activity. Patient agreeable to TTE on 09/06 and this study was unremarkable, with LVEF 60%, no WMA, no hemodynamically significant valvular disease. -Possibly SE of psych meds including benztropine, Depakote, Latuda. -Patient has occasionally refused lovenox injections. If patient should become hypoxic or have concerns for peripheral DVT, will work-up for possible PE. Assessment & Plan (09/10/2024 12:27 PM EST): Throughout admission, patient has been intermittently been tachycardic in the 100-110's. Patient asymptomatic. She is satting well on RA and is without BLE swelling/pain/erythema. Patient has had multiple EKGs that are sinus/sinus tach most recently on 09/06. Unclear if tachycardic readings are taken when patient is at rest, or is taken after any form of activity. Patient agreeable to TTE on 09/06 and this study was unremarkable, with LVEF 60%, no WMA, no hemodynamically significant valvular disease. -Possibly SE of psych meds including benztropine, Depakote, Latuda. -Patient has occasionally refused lovenox injections. If patient should become hypoxic or have concerns for peripheral DVT, will work-up for possible PE. Assessment & Plan (09/09/2024 9:24 PM EST): Throughout admission, patient has intermittently been tachycardic in the 100- 110's. Patient asymptomatic. She is satting well on RA and is without BLE swelling/pain/erythema. Patient has had multiple EKGs that are sinus/sinus tach most recently on 09/06. Unclear if tachycardic readings are taken when patient is at rest, or is taken after any form of activity. Patient agreeable to TTE on 09/06 and this study was unremarkable, with LVEF 60%, no WMA, no hemodynamically significant valvular disease. - Possibly SE of psych meds including benztropine, Depakote, Latuda. -Patient has occasionally refused lovenox injections. If patient should become hypoxic or have concerns for peripheral DVT, will work-up for possible PE. Assessment & Plan (09/02/2024 3:09 PM EST): Throughout admission, patient has intermittently been tachycardic in the 100's, 110's. Patient asymptomatic. She is satting well on RA and is without BLE swelling/pain/erythema. Patient has had multiple EKGs that are sinus/sinus tach. Unclear if tachycardic readings are taken when patient is at rest, or is taken after any form of activity. -TTE ordered -If patient tachycardic on AM labs on 09/03, will order EKG -Patient has occasionally refused lovenox injections. If patient should become hypoxic or have concerns for peripheral DVT, will work-up for possible PE. Primary hypertension 09/02/2024 Assessment & Plan (02/27/2025 6:01 PM EDT): History of HTN with regimen adjusted to losartan 12.5 mg daily and Lasix 40 mg daily during recent hospitalization. BP with improved control, however, transiently elevated 02/19. Repeat readings improved. On discharge: - Continue losartan 12.5 mg and lasix 40 mg daily - Continue to monitor BP and adjust antihypertensive regimen as needed Assessment & Plan (02/27/2025 5:35 PM EDT): History of HTN with regimen adjusted to losartan 12.5 mg daily and Lasix 40 mg daily during recent hospitalization. BP with improved control, however, transiently elevated 02/19. Repeat readings improved. - Continue losartan 12.5 mg and lasix 40 mg daily - Continue to monitor BP and adjust antihypertensive regimen as needed Assessment & Plan (02/16/2025 4:41 PM EDT): History of HTN with regimen adjusted to losartan 12.5 mg daily and Lasix 40 mg daily during recent hospitalization. BP with improved control. - Continue losartan 12.5 mg and lasix 40 mg daily - Continue to monitor BP and adjust antihypertensive regimen as needed Assessment & Plan (02/15/2025 3:26 PM EDT): History of HTN with regimen adjusted to losartan 12.5 mg daily and Lasix 40 mg daily during recent hospitalization. BP with improved control. - Continue losartan 12.5 mg and lasix 40 mg daily - Continue to monitor BP and adjust antihypertensive regimen as needed Assessment & Plan (02/14/2025 6:02 PM EDT): History of HTN with regimen adjusted to losartan 12.5 mg daily and Lasix 40 mg daily during recent hospitalization. BP with improved control. - Continue losartan 12.5 mg and lasix 40 mg daily - Continue to monitor BP and adjust antihypertensive regimen as needed Assessment & Plan (02/10/2025 12:27 PM EDT): History of HTN with regimen adjusted to losartan 12.5 mg daily and Lasix 40 mg daily during recent hospitalization. BP with improved control. - Continue losartan 12.5 mg and lasix 40 mg daily - Continue to monitor BP and adjust antihypertensive regimen as needed Assessment & Plan (02/09/2025 9:57 AM EDT): History of HTN with regimen adjusted to losartan 12.5 mg daily and Lasix 40 mg daily during recent hospitalization. BP with improved control. - Continue losartan and lasix - Continue to monitor BP and adjust antihypertensive regimen as needed Assessment & Plan (02/07/2025 1:48 PM EDT): History of HTN with regimen adjusted to losartan 12.5 mg daily and Lasix 40 mg daily during recent hospitalization. BP with improved control. - Continue losartan and lasix - Continue to monitor BP and adjust antihypertensive regimen as needed Assessment & Plan (02/01/2025 4:26 PM EDT): History of HTN with regimen adjusted to losartan 12.5 mg daily and Lasix 40 mg daily during recent hospitalization. BP with improved control. - Continue losartan and lasix - Trend BP and adjust antihypertensive regimen accordingly Assessment & Plan (01/31/2025 11:43 AM EDT): History of HTN with regimen adjusted to losartan 12.5 mg daily and Lasix 40 mg daily during recent hospitalization. BP with improved control. - Continue losartan and lasix - Trend BP and adjust antihypertensive regimen accordingly Assessment & Plan (01/30/2025 5:00 PM EDT): History of HTN with regimen adjusted to losartan 12.5 mg daily and Lasix 40 mg daily during recent hospitalization. BP with improved control. - Continue losartan and lasix - Trend BP and adjust antihypertensive regimen accordingly Assessment & Plan (01/08/2025 10:31 AM EDT): History of HTN with regimen adjusted to losartan 12.5 mg daily and Lasix 40 mg daily during recent hospitalization. BP with improved control. - Continue losartan and lasix - Trend BP and adjust antihypertensive regimen accodingly Assessment & Plan (01/07/2025 12:00 PM EDT): History of HTN with regimen adjusted to losartan 12.5 mg daily and Lasix 40 mg daily during recent hospitalization. BP with improved control. - Continue losartan and lasix - Trend BP and adjust antihypertensive regimen accodingly Assessment & Plan (12/31/2024 12:02 PM EST): History of HTN with regimen adjusted to losartan 12.5 mg daily and Lasix 40 mg daily during recent hospitalization. BP with improved control. - Continue losartan and lasix - Trend BP and adjust antihypertensive regimen accodingly Assessment & Plan (12/30/2024 2:21 PM EST): - Continue losartan 12.5 mg daily, Lasix 40 mg daily Assessment & Plan (12/23/2024 11:46 AM EST): - Continue losartan 12.5 mg daily, Lasix 40 mg daily Assessment & Plan (12/19/2024 11:18 AM EST): History of HTN. [facility] had patient on Lasix, however patient is not sure what this was prescribed for. Lower extremities have been without edema. TTE 09/06 was unremarkable. Throughout admission, patient has had variable SBP readings but trending ~150 systolic. Initially started on lisinopril, however frequently complaining of dry cough so lisinopril 5mg daily dc'd 2/5 with improvement. Losartan started as BP remains elevated to 150-160 range. -Continue on Losartan 12.5 mg daily - Continue lasix 40mg daily -Discontinued lisinopril, started -Continue to monitor and adjust antihypertensive as warranted Assessment & Plan (12/13/2024 4:20 PM EST): History of HTN. [facility] had patient on Lasix, however patient is not sure what this was prescribed for. Lower extremities have been without edema. TTE 09/06 was unremarkable.Throughout admission, patient has had variable SBP readings but trending ~150 systolic. Frequently complaining of dry cough so lisinopril 5mg daily dc'd 2/5 with improvement. Losartan started as BP remains elevated to 150-160 range. -Discontinued lisinopril, started Losartan 12.5 mg daily -Continue to monitor and adjust anti-HTNives as warranted Assessment & Plan (12/12/2024 5:04 PM EST): History of HTN. [facility] had patient on Lasix, however patient is not sure what this was prescribed for. Lower extremities have been without edema. TTE 09/06 was unremarkable.Throughout admission, patient has had variable SBP readings but trending ~150 systolic. Frequently complaining of dry cough so lisinopril 5mg daily dc'd 2/5 with improvement. Losartan started as BP remains elevated to 150-160 range. -Discontinued lisinopril, started Losartan 12.5 mg daily -Continue to monitor and adjust anti-HTNives as warranted Assessment & Plan (12/11/2024 2:18 PM EST): History of HTN. Facility [facility] had patient on Lasix, however patient is not sure what this was prescribed for. Lower extremities have been without edema. TTE 09/06 was unremarkable.Throughout admission, patient has had variable SBP readings but trending ~150 systolic. Frequently complaining of dry cough so lisinopril 5mg daily dc'd 2/5 with improvement. Losartan started as BP remains elevated to 150-160 range. -Discontinued lisinopril, started Losartan 12.5 mg daily -Continue to monitor and adjust anti-HTNives as warranted Assessment & Plan (12/10/2024 5:07 PM EST): History of HTN. Facility [facility] had patient on Lasix, however patient is not sure what this was prescribed for. Lower extremities have been without edema. TTE 09/06 was unremarkable.Throughout admission, patient has had variable SBP readings but trending ~150 systolic. Frequently complaining of dry cough so lisinopril 5mg daily dc'd 2/5 with improvement. Losartan started as BP remains elevated to 150-160 range. -Discontinued lisinopril, started Losartan 12.5 mg daily -Continue to monitor and adjust anti-HTNives as warranted Assessment & Plan (12/08/2024 11:49 AM EST): History of HTN. [facility] had patient on Lasix, however patient is not sure what this was prescribed for. Lower extremities have been without edema. TTE 09/06 was unremarkable.Throughout admission, patient has had variable SBP readings but trending ~150 systolic. Frequently complaining of dry cough so lisinopril 5mg daily dc'd 2/5 with improvement. Losartan started as BP remains elevated to 150-160 range. -Discontinued lisinopril 5mg daily 11/30/24 in setting of dry cough with no other infectious causes. -Started lisinopril 12.5mg daily 12/07 with good BP control, titrate prn -Continue to monitor and adjust anti-HTNives as warranted Assessment & Plan (12/02/2024 11:14 AM EST): History of HTN. [facility] had patient on Lasix, however patient is not sure what this was prescribed for. Lower extremities have been without edema. Throughout admission, patient has had variable SBP readings but trending ~150 systolic. TTE 09/06 was unremarkable. - Started lisinopril 5mg daily 10/30/24 - Continue to monitor and adjust anti-HTNives as warranted Assessment & Plan (12/01/2024 2:10 PM EST): History of HTN. [facility] had patient on Lasix, however patient is not sure what this was prescribed for. Lower extremities have been without edema. Throughout admission, patient has had variable SBP readings but trending ~150 systolic. TTE 09/06 was unremarkable. - Started lisinopril 5mg daily 10/30/24 - Continue to monitor and adjust anti-HTNives as warranted Assessment & Plan (11/30/2024 3:53 PM EST): History of HTN. [facility] had patient on Lasix, however patient is not sure what this was prescribed for. Lower extremities have been without edema. Throughout admission, patient has had variable SBP readings but trending ~150 systolic. TTE 11 was unremarkable. - Started lisinopril 5mg daily 10/30/24 - Continue to monitor and adjust anti-HTNives as warranted Assessment & Plan (11/29/2024 10:52 AM EST): History of HTN. [facility] had patient on Lasix, however patient is not sure what this was prescribed for. Lower extremities have been without edema. Throughout admission, patient has had variable SBP readings but trending ~150 systolic. TTE 11 was unremarkable. - Started lisinopril 5mg daily 10/30/24 - Continue to monitor and adjust anti-HTNives as warranted Assessment & Plan (11/28/2024 10:13 AM EST): History of HTN. [facility] had patient on Lasix, however patient is not sure what this was prescribed for. Lower extremities have been without edema. Throughout admission, patient has had variable SBP readings but trending ~150 systolic. TTE 11 was unremarkable. - Started lisinopril 5mg daily 10/30/24 - Continue to monitor and adjust anti-HTNives as warranted Assessment & Plan (11/27/2024 10:04 AM EST): History of HTN. [facility] had patient on Lasix, however patient is not sure what this was prescribed for. Lower extremities have been without edema. Throughout admission, patient has had variable SBP readings but trending ~150 systolic. TTE 09/06 was unremarkable. - Started lisinopril 5mg daily 10/30/24 - Continue to monitor and adjust anti-HTNives as warranted Assessment & Plan (11/26/2024 11:05 AM EST): History of HTN. [facility] had patient on Lasix, however patient is not sure what this was prescribed for. Lower extremities have been without edema. Throughout admission, patient has had variable SBP readings but trending ~150 systolic. TTE 11 was unremarkable. - Started lisinopril 5mg daily 10/30/24 - Continue to monitor and adjust anti-HTNives as warranted Assessment & Plan (11/25/2024 12:51 PM EST): History of HTN. [facility] had patient on Lasix, however patient is not sure what this was prescribed for. Lower extremities have been without edema. Throughout admission, patient has had variable SBP readings but trending ~150 systolic. TTE 11 was unremarkable. - Started lisinopril 5mg daily 10/30/24 - Continue to monitor and adjust anti-HTNives as warranted Assessment & Plan (11/24/2024 11:53 AM EST): History of HTN. [facility] had patient on Lasix, however patient is not sure what this was prescribed for. Lower extremities have been without edema. Throughout admission, patient has had variable SBP readings but trending ~150 systolic. TTE 09/06 was unremarkable. - Started lisinopril 5mg daily 10/30/24 - Continue to monitor and adjust anti-HTNives as warranted Assessment & Plan (11/23/2024 2:21 PM EST): History of HTN. [facility] had patient on Lasix, however patient is not sure what this was prescribed for. Lower extremities have been without edema. Throughout admission, patient has had variable SBP readings but trending ~150 systolic. TTE 09/06 was unremarkable. - Started lisinopril 5mg daily 10/30/24 - Continue to monitor and adjust anti-HTNives as warranted Assessment & Plan (11/16/2024 2:28 PM EST): History of HTN. [facility] had patient on Lasix, however patient is not sure what this was prescribed for. Lower extremities have been without edema. Throughout admission, patient has had variable SBP readings but trending ~150 systolic. TTE 09/06 was unremarkable. - Started lisinopril 5mg daily 10/30/24 - Continue to monitor and adjust anti-HTNives as warranted Assessment & Plan (11/06/2024 2:12 PM EST): History of HTN. [facility] had patient on Lasix, however patient is not sure what this was prescribed for. Throughout admission, patient has had variable SBP readings but trending ~150 systolic. TTE 09/06 was unremarkable. -started lisinopril 5mg daily 10/30 -Could consider BB given tachycardia -Lasix was continued on admission. Assessment & Plan (11/05/2024 11:29 AM EST): History of HTN. [facility] had patient on Lasix, however patient is not sure what this was prescribed for. Throughout admission, patient has had variable SBP readings but trending ~150 systolic. TTE 09/06 was unremarkable. -started lisinopril 5mg daily 1/5 -Could consider BB given tachycardia -Lasix was continued on admission. Assessment & Plan (11/04/2024 10:11 AM EST): History of HTN. [facility] had patient on Lasix, however patient is not sure what this was prescribed for. Throughout admission, patient has had variable SBP readings but trending ~150 systolic. TTE 11/12 was unremarkable. -started lisinopril 5mg daily 1/5 -Could consider BB given tachycardia -Lasix was continued on admission. Assessment & Plan (11/03/2024 10:30 AM EST): History of HTN. [facility] had patient on Lasix, however patient is not sure what this was prescribed for. Throughout admission, patient has had variable SBP readings but trending ~150 systolic. TTE 11/12 was unremarkable. -start lisinopril 5mg daily 1/5 - Could consider BB given tachycardia -Lasix was continued on admission. Will continue lasix 40 mg daily for now Assessment & Plan (10/24/2024 2:19 PM EST): History of HTN. [facility] had patient on Lasix, however patient is not sure what this was prescribed for. Throughout admission, patient has had variable SBP readings but generally normotensive. TTE 1112 was unremarkable. -Defer starting antihypertensive medication for the time being -Lasix was continued on admission. Will continue 40 mg daily for now Assessment & Plan (10/23/2024 11:08 AM EST): History of HTN. [facility] had patient on Lasix, however patient is not sure what this was prescribed for. Throughout admission, patient has had variable SBP readings but generally normotensive. TTE 11/12 was unremarkable. -Defer starting antihypertensive medication for the time being -Lasix was continued on admission. Will continue 40 mg daily for now Assessment & Plan (10/14/2024 5:08 PM EST): History of HTN. [facility] had patient on Lasix, however patient is not sure what this was prescribed for. Throughout admission, patient has had variable SBP readings but generally normotensive. TTE 11/12 was unremarkable. -Defer starting antihypertensive medication for the time being -Lasix was continued on admission. Will continue for now Assessment & Plan (09/30/2024 4:48 PM EST): Patient denies history of HTN. [facility] had patient on Lasix, however patient is not sure what this was prescribed for. Throughout admission, patient has had variable SBP readings. More recently, SBP has been consistently in the 130's-150's. Patient is asymptomatic. TTE obtained 09/06 was unremarkable and did not note concentric wall thickening. -Defer starting antihypertensive medication for the time being -Lasix was continued on admission. Will continue for now -Continue to monitor BP trends and address BP as clinically warranted Assessment & Plan (09/29/2024 1:51 PM EST): Patient denies history of HTN. [facility] had patient on Lasix, however patient is not sure what this was prescribed for. Throughout admission, patient has had variable SBP readings. More recently, SBP has been consistently in the 130's-150's. Patient is asymptomatic. TTE obtained 09/06 was unremarkable and did not note concentric wall thickening. -Defer starting antihypertensive medication for the time being -Lasix was continued on admission. Will continue for now -Continue to monitor BP trends and address BP as clinically warranted Assessment & Plan (09/28/2024 2:31 PM EST): Patient denies history of HTN. [facility] had patient on Lasix, however patient is not sure what this was prescribed for. Throughout admission, patient has had variable SBP readings. More recently, SBP has been consistently in the 130's-150's since 08/26. Patient is asymptomatic. TTE obtained 09/06 was unremarkable and did not note concentric wall thickening. -Defer starting antihypertensive medication for the time being -Lasix was continued on admission. Will continue for now -Continue to monitor BP trends and address BP as clinically warranted Assessment & Plan (09/11/2024 11:00 AM EST): Patient denies history of HTN. [facility] had patient on Lasix, however patient is not sure what this was prescribed for. Throughout admission, patient has had variable SBP readings. More recently, SBP has been consistently in the 130's-150's since 08/26. Patient is asymptomatic. TTE obtained 09/06 was unremarkable and did not note concentric wall thickening. -Defer starting antihypertensive medication for the time being -Lasix was continued on admission. Will continue for now -Continue to monitor BP trends and address BP as clinically warranted Assessment & Plan (09/10/2024 12:27 PM EST): Patient denies history of HTN. [facility] had patient on Lasix, however patient is not sure what this was prescribed for. Throughout admission, patient has had variable SBP readings. More recently, SBP has been consistently in the 130's-150's since 08/26. Patient is asymptomatic. TTE obtained 09/06 was unremarkable and did not note concentric wall thickening. -Defer starting antihypertensive medication for the time being -Lasix was continued on admission. Will continue for now -Continue to monitor BP trends and address BP as clinically warranted Assessment & Plan (09/09/2024 9:24 PM EST): Patient denies history of HTN. [facility] had patient on Lasix, however patient is not sure what this was prescribed for. Throughout admission, patient has had variable SBP readings. More recently, SBP has been consistently in the 130's-150's since 08/26. Patient is asymptomatic. TTE obtained 09/06 was unremarkable and did not note concentric wall thickening. -Defer starting antihypertensive medication for the time being -Lasix was continued on admission. Will continue for now -Continue to monitor BP trends and address BP as clinically warranted Assessment & Plan (09/02/2024 3:09 PM EST): Patient denies history of HTN. [facility] had patient on Lasix, however patient is not sure what this was prescribed for. Throughout admission, patient has had variable SBP readings. More recently, SBP has been consistently in the 140's-150's since 08/31. Patient is asymptomatic. -TTE ordered -Defer starting antihypertensive medication for the time being -Lasix was continued on admission. Will continue for now -Continue to monitor BP trends and address BP as clinically warranted Cigarette nicotine dependence without complicati on 08/10/2024 Assessment & Plan (12/14/2024 3:33 PM EST): Continue on nicotine replacement therapy while admitted - Nicorette gum q 2hours PRN Assessment & Plan (12/13/2024 4:20 PM EST): Continue on nicotine replacement therapy while admitted. - Nicorette gum q 2hours PRN Assessment & Plan (12/12/2024 5:04 PM EST): Continue on nicotine replacement therapy while admitted. - Nicorette gum q 2hours PRN Assessment & Plan (12/11/2024 2:18 PM EST): Continue on nicotine replacement therapy while admitted. - Nicorette gum q 2hours PRN Assessment & Plan (12/10/2024 5:07 PM EST): Continue on nicotine replacement therapy while admitted. - Nicorette gum q 2hours PRN Assessment & Plan (12/03/2024 2:46 PM EST): Continue on nicotine replacement therapy while admitted. - Nicorette gum q 2hours PRN Assessment & Plan (12/02/2024 11:14 AM EST): Continue on nicotine replacement therapy while admitted. - Nicorette gum q 2hours PRN Assessment & Plan (12/01/2024 2:10 PM EST): Continue on nicotine replacement therapy while admitted. - Nicorette gum q 2hours PRN Assessment & Plan (11/30/2024 3:53 PM EST): Continue on nicotine replacement therapy while admitted. - Nicorette gum q 2hours PRN Assessment & Plan (11/29/2024 10:52 AM EST): Continue on nicotine replacement therapy while admitted. - Nicorette gum q 2hours PRN Assessment & Plan (11/28/2024 10:13 AM EST): Continue on nicotine replacement therapy while admitted. - Nicorette gum q 2hours PRN Assessment & Plan (11/27/2024 10:04 AM EST): Continue on nicotine replacement therapy while admitted. - Nicorette gum q 2hours PRN Assessment & Plan (11/26/2024 11:05 AM EST): Continue on nicotine replacement therapy while admitted. - Nicorette gum q 2hours PRN Assessment & Plan (11/25/2024 12:51 PM EST): Continue on nicotine replacement therapy while admitted. - Nicorette gum q 2hours PRN Assessment & Plan (11/24/2024 11:53 AM EST): Continue on nicotine replacement therapy while admitted. - Nicorette gum q 2hours PRN Assessment & Plan (11/23/2024 2:20 PM EST): Continue on nicotine replacement therapy while admitted. - Nicorette gum q 2hours PRN Assessment & Plan (11/16/2024 2:27 PM EST): Continue on nicotine replacement therapy while admitted. - Nicorette gum q 2hours PRN Assessment & Plan (11/06/2024 2:12 PM EST): -Continue on nicotine replacement therapy while admitted. Assessment & Plan (11/05/2024 11:29 AM EST): -Continue on nicotine replacement therapy while admitted. Assessment & Plan (11/04/2024 10:11 AM EST): -Continue on nicotine replacement therapy while admitted. Assessment & Plan (11/03/2024 10:30 AM EST): -Continue on nicotine replacement therapy while admitted. Assessment & Plan (10/24/2024 2:19 PM EST): -Continue on nicotine replacement therapy while admitted. Assessment & Plan (10/23/2024 11:08 AM EST): -Continue on nicotine replacement therapy while admitted. Assessment & Plan (10/08/2024 3:40 PM EST): Continue on nicotine replacement therapy while admitted. Assessment & Plan (09/30/2024 4:48 PM EST): - Continue on nicotine replacement therapy while admitted. Assessment & Plan (09/29/2024 1:51 PM EST): - Continue on nicotine replacement therapy while admitted. Assessment & Plan (09/28/2024 2:31 PM EST): - Continue on nicotine replacement therapy while admitted. Assessment & Plan (09/11/2024 11:00 AM EST): - Continue on nicotine replacement therapy while admitted. Assessment & Plan (09/10/2024 12:27 PM EST): - Continue on nicotine replacement therapy while admitted. Assessment & Plan (09/09/2024 10:55 AM EST): - Continue on nicotine replacement therapy while admitted. Assessment & Plan (09/02/2024 3:09 PM EST): Continue on nicotine replacement therapy while admitted. Assessment & Plan (09/01/2024 2:00 PM EST): Continue on nicotine replacement therapy while admitted. Assessment & Plan (08/31/2024 5:30 PM EST): Continue on nicotine replacement therapy while admitted. Assessment & Plan (08/22/2024 11:56 AM EDT): Continue with NRT while admitted. Assessment & Plan (08/21/2024 1:57 PM EDT): Continue with NRT while admitted. Assessment & Plan (08/20/2024 10:26 AM EDT): Continue with NRT while admitted. Assessment & Plan (08/13/2024 12:04 PM EDT): Continue with NRT while admitted. Assessment & Plan (08/12/2024 10:12 AM EDT): Continue with NRT while admitted. Assessment & Plan (08/11/2024 1:55 PM EDT): Continue with NRT while admitted. 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 She has been a resident at [facility] since October 2020 following an anoxic brain injury and stroke due to cardiac arrest secondary to drug overdose (September 2020). She has presented to the ED multiple times in the past due to attempts to leave facility with most recent attempt on 07/29. She apparently became aggressive and broke objects at the facility and was placed on section 12. She was subsequently cleared by [facility], but facility declined pt to return. During hospitalization, a repeat OT evaluation was performed on 08/22 and SLUMS with score 12/30 indicating dementia level cognition and OT continue to recommend discharge to an inpatient facility. She was also evaluated by psychiatry for capacity evaluation on 08/22. Patient lacks capacity to leave AGAINST MEDICAL ADVICE. Per psychiatry, patient cannot appreciate benefits/risks on high risk decisions, however is capable of making low risk decisions. Of note, pt with elopement from hospital on 12/19 with return to ED on 12/21. Upon return, the pt did endorse SI. Therefore, psychiatry reevaluated the patient on 12/23 and she was not felt to meet section 12, and this was lifted. -Continue Zyprexa 5 mg in the morning, 10 mg at night -Continue Depakote 1750 mg nightly -Continue Ativan 1 mg nightly, Latuda 80 mg twice daily, Effexor 112.5 mg daily, trazodone 50 mg nightly -HCP affirmed on 01/03 Assessment & Plan (02/27/2025 5:35 PM EDT): Patient has a complex psychiatric history including PTSD, depression, and schizoaffective disorder, bipolar type. She has been a resident at [facility] since October 2020 following an anoxic brain injury and stroke due to cardiac arrest from a drug overdose (September 2020). She presented to the ED multiple times in the past due to attempts to leave facility with most recent attempt on 07/29. She apparently became aggressive and broke objects at the facility and was placed on section 12. She was subsequently cleared by [facility], but facility declined pt to return. During hospitalization, a repeat OT evaluation was performed on 08/22 and SLUMS with score 12/30 indicating dementia level cognition and OT continue to recommend discharge to an inpatient facility. She was also evaluated by psychiatry for capacity evaluation on 08/22. Patient lacks capacity to leave AGAINST MEDICAL ADVICE. Per psychiatry, patient cannot appreciate benefits/risks on high risk decisions, however is capable of making low risk decisions. SW assisting in new LTC placement. Of note, pt with elopement from hospital on 12/19 with return to ED on 12/21. Upon return, the pt did endorse SI. Therefore, psychiatry reevaluated the patient on 12/23 and she was not felt to meet section 12, and this was lifted. -Continue Zyprexa 5 mg in the morning, 10 mg at night -Continue Zyprexa 5 mg twice daily as needed, Ativan 1 mg twice daily as needed -Continue Depakote 750 mg nightly -Continue Ativan 1 mg nightly, Latuda 80 mg twice daily, Effexor 112.5 mg daily, trazodone 50 mg nightly -Continue 1: 1 given elopement risk - HCP affirmed on 01/03 Assessment & Plan (02/16/2025 4:41 PM EDT): Patient has a complex psychiatric history including PTSD, depression, and schizoaffective disorder, bipolar type. She has been a resident at [facility] since October 2020 following an anoxic brain injury and stroke due to cardiac arrest from a drug overdose (September 2020). She presented to the ED multiple times in the past due to attempts to leave facility with most recent attempt on 07/29. She apparently became aggressive and broke objects at the facility and was placed on section 12. She was subsequently cleared by EM, but facility declined pt to return. During hospitalization, a repeat OT evaluation was performed on 08/22 and SLUMS with score 12/30 indicating dementia level cognition and OT continue to recommend discharge to an inpatient facility. She was also evaluated by psychiatry for capacity evaluation on 08/22. Patient lacks capacity to leave AGAINST MEDICAL ADVICE. Per psychiatry, patient cannot appreciate benefits/risks on high risk decisions, however is capable of making low risk decisions. SW assisting in new LTC placement. Of note, pt with elopement from hospital on 12/19 with return to ED on 12/21. Upon return, the pt did endorse SI. Therefore, psychiatry reevaluated the patient on 12/23 and she was not felt to meet section 12. -Continue Zyprexa 5 mg in the morning, 10 mg at night -Continue Zyprexa 5 mg twice daily as needed, Ativan 1 mg twice daily as needed -Continue Depakote 750 mg nightly -Continue Ativan 1 mg nightly, Latuda 80 mg twice daily, Effexor 112.5 mg daily, trazodone 50 mg nightly -Continue 1: 1 given elopement risk - HCP affirmed on 01/03 - Pt has been accepted by [facility] pending bed availability Assessment & Plan (02/15/2025 3:26 PM EDT): Patient has a complex psychiatric history including PTSD, depression, and schizoaffective disorder, bipolar type. She has been a resident at [facility] since October 2020 following an anoxic brain injury and stroke due to cardiac arrest from a drug overdose (September 2020). She presented to the ED multiple times in the past due to attempts to leave facility with most recent attempt on 07/29. She apparently became aggressive and broke objects at the facility and was placed on section 12. She was subsequently cleared by [facility], but facility declined pt to return. During hospitalization, a repeat OT evaluation was performed on 08/22 and SLUMS with score 12/30 indicating dementia level cognition and OT continue to recommend discharge to an inpatient facility. She was also evaluated by psychiatry for capacity evaluation on 08/22. Patient lacks capacity to leave AGAINST MEDICAL ADVICE. Per psychiatry, patient cannot appreciate benefits/risks on high risk decisions, however is capable of making low risk decisions. SW assisting in new LTC placement. Of note, pt with elopement from hospital on 12/19 with return to ED on 12/21. Upon return, the pt did endorse SI. Therefore, psychiatry reevaluated the patient on 12/23 and she was not felt to meet section 12. -Continue Zyprexa 5 mg in the morning, 10 mg at night -Continue Zyprexa 5 mg twice daily as needed, Ativan 1 mg twice daily as needed -Continue Depakote 750 mg nightly -Continue Ativan 1 mg nightly, Latuda 80 mg twice daily, Effexor 112.5 mg daily, trazodone 50 mg nightly -Continue 1: 1 given elopement risk - HCP affirmed on 01/03 - Pt has been accepted by [facility] pending bed availability Assessment & Plan (02/14/2025 6:02 PM EDT): Patient has a complex psychiatric history including PTSD, depression, and schizoaffective disorder, bipolar type. She has been a resident at [facility] since October 2020 following an anoxic brain injury and stroke due to cardiac arrest from a drug overdose (September 2020). She presented to the ED multiple times in the past due to attempts to leave facility with most recent attempt on 07/29. She apparently became aggressive and broke objects at the facility and was placed on section 12. She was subsequently cleared by [facility], but facility declined pt to return. During hospitalization, a repeat OT evaluation was performed on 08/22 and RIKKIUMS with score 12/30 indicating dementia level cognition and OT continue to recommend discharge to an inpatient facility. She was also evaluated by psychiatry for capacity evaluation on 08/22. Patient lacks capacity to leave AGAINST MEDICAL ADVICE. Per psychiatry, patient cannot appreciate benefits/risks on high risk decisions, however is capable of making low risk decisions. SW assisting in new LTC placement. Of note, pt with elopement from hospital on 12/19 with return to ED on 12/21. Upon return, the pt did endorse SI. Therefore, psychiatry reevaluated the patient on 12/23 and she was not felt to meet section 12. -Continue Zyprexa 5 mg in the morning, 10 mg at night -Continue Zyprexa 5 mg twice daily as needed, Ativan 1 mg twice daily as needed -Continue Depakote 750 mg nightly -Continue Ativan 1 mg nightly, Latuda 80 mg twice daily, Effexor 112.5 mg daily, trazodone 50 mg nightly -Continue 1: 1 given elopement risk - HCP affirmed on 01/03 - Pt [facility] been accepted [facility] bed availability Assessment & Plan (02/10/2025 12:24 PM EDT): Patient has a complex psychiatric history including PTSD, depression, and schizoaffective disorder, bipolar type. She has been a resident at [facility] since October 2020 following an anoxic brain injury and stroke due to cardiac arrest from a drug overdose (September 2020). She presented to the ED multiple times in the past due to attempts to leave facility with most recent attempt on 07/29. She apparently became aggressive and broke objects at the facility and was placed on section 12. She was subsequently cleared by [facility], but facility declined pt to return. During hospitalization, a repeat OT evaluation was performed on 08/22 and JANICE with score 12/30 indicating dementia level cognition and OT continue to recommend discharge to an inpatient facility. She was also evaluated by psychiatry for capacity evaluation on 08/22. Patient lacks capacity to leave AGAINST MEDICAL ADVICE. Per psychiatry, patient cannot appreciate benefits/risks on high risk decisions, however is capable of making low risk decisions. SW assisting in new LTC placement. Of note, pt with elopement from hospital on 12/19 with return to ED on 12/21. Upon return, the pt did endorse SI. Therefore, psychiatry reevaluated the patient on 12/23 and she was not felt to meet section 12. -Continue Zyprexa 5 mg in the morning, 10 mg at night -Continue Zyprexa 5 mg twice daily as needed, Ativan 1 mg twice daily as needed -Continue Depakote 750 mg nightly -Continue Ativan 1 mg nightly, Latuda 80 mg twice daily, Effexor 112.5 mg daily, trazodone 50 mg nightly -Continue 1: 1 given elopement risk - HCP affirmed on 01/03 - Pt has been accepted [facility] bed availability Assessment & Plan (02/09/2025 9:56 AM EDT): Patient has a complex psychiatric history including PTSD, depression, and schizoaffective disorder, bipolar type. She has been a resident at [facility] since October 2020 following an anoxic brain injury and stroke due to cardiac arrest from a drug overdose (September 2020). She presented to the ED multiple times in the past due to attempts to leave facility with most recent attempt on 07/29. She apparently became aggressive and broke objects at the facility and was placed on section 12. She was subsequently cleared by [facility], but facility declined pt to return. During hospitalization, a repeat OT evaluation was performed on 08/22 and SLUMS with score 12/30 indicating dementia level cognition and OT continue to recommend discharge to an inpatient facility. She was also evaluated by psychiatry for capacity evaluation on 08/22. Patient lacks capacity to leave AGAINST MEDICAL ADVICE. Per psychiatry, patient cannot appreciate benefits/risks on high risk decisions, however is capable of making low risk decisions. SW assisting in new LTC placement. Of note, pt with elopement from hospital on 12/19 with return to ED on 12/21. Upon return, the pt did endorse SI. Therefore, psychiatry reevaluated the patient on 12/23 and she was not felt to meet section 12. -Continue Zyprexa 5 mg in the morning, 10 mg at night -Continue Zyprexa 5 mg twice daily as needed, Ativan 1 mg twice daily as needed -Continue Depakote 750 mg nightly -Continue Ativan 1 mg nightly, Latuda 80 mg twice daily, Effexor 112.5 mg daily, trazodone 50 mg nightly -Continue 1: 1 given elopement risk - HCP affirmed on 01/03 - Pt has been accepted by [facility] pending bed availability Assessment & Plan (02/07/2025 1:47 PM EDT): Patient has a complex psychiatric history including PTSD, depression, and schizoaffective disorder, bipolar type. She has been a resident at [facility] since October 2020 following an anoxic brain injury and stroke due to cardiac arrest from a drug overdose (September 2020). She presented to the ED multiple times in the past due to attempts to leave facility with most recent attempt on 07/29. She apparently became aggressive and broke objects at the facility and was placed on section 12. She was subsequently cleared by EM, but facility declined pt to return. During hospitalization, a repeat OT evaluation was performed on 08/22 and UMS with score 12/30 indicating dementia level cognition and OT continue to recommend discharge to an inpatient facility. She was also evaluated by psychiatry for capacity evaluation on 08/22. Patient lacks capacity to leave AGAINST MEDICAL ADVICE. Per psychiatry, patient cannot appreciate benefits/risks on high risk decisions, however is capable of making low risk decisions. SW assisting in new LTC placement. Of note, pt with elopement from hospital on 12/19 with return to ED on 12/21. Upon return, the pt did endorse SI. Therefore, psychiatry reevaluated the patient on 12/23 and she was not felt to meet section 12. -Continue Zyprexa 5 mg in the morning, 10 mg at night -Continue Zyprexa 5 mg twice daily as needed, Ativan 1 mg twice daily as needed -Continue Depakote 750 mg nightly -Continue Ativan 1 mg nightly, Latuda 80 mg twice daily, Effexor 112.5 mg daily, trazodone 50 mg nightly -Continue 1: 1 given elopement risk - HCP affirmed on 01/03 - Pt has been accepted by [facility] pending bed availability Assessment & Plan (02/01/2025 4:26 PM EDT): Patient has a complex psychiatric history including PTSD, depression, and schizoaffective disorder, bipolar type. She has been a resident at [facility] since October 2020 following an anoxic brain injury and stroke due to cardiac arrest from a drug overdose (September 2020). She presented to the ED multiple times in the past due to attempts to leave facility with most recent attempt on 07/29. She apparently became aggressive and broke objects at the facility and was placed on section 12. She was subsequently cleared by [facility], but facility declined pt to return. During hospitalization, a repeat OT evaluation was performed on 08/22 and [facility] with score 12/30 indicating dementia level cognition and OT continue to recommend discharge to an inpatient facility. She was also evaluated by psychiatry for capacity evaluation on 08/22. Patient lacks capacity to leave AGAINST MEDICAL ADVICE. Per psychiatry, patient cannot appreciate benefits/risks on high risk decisions, however is capable of making low risk decisions. SW assisting in new LTC placement. Of note, pt with elopement from hospital on 12/19 with return to ED on 12/21. Upon return, the pt did endorse SI. Therefore, psychiatry reevaluated the patient on 12/23 and she was not felt to meet section 12. -Continue Zyprexa 5 mg in the morning, 10 mg at night -Continue Zyprexa 5 mg twice daily as needed, Ativan 1 mg twice daily as needed -Continue Depakote 750 mg nightly -Continue Ativan 1 mg nightly, Latuda 80 mg twice daily, Effexor 112.5 mg daily, trazodone 50 mg nightly -Continue 1: 1 given elopement risk - HCP affirmed on 01/03 - Pt accepted by [facility] pending bed availability. Assessment & Plan (01/31/2025 2:33 PM EDT): Patient has a complex psychiatric history including PTSD, depression, and schizoaffective disorder, bipolar type. She has been a resident at [facility] since October 2020 following an anoxic brain injury and stroke due to cardiac arrest from a drug overdose (September 2020). She presented to the ED multiple times in the past due to attempts to leave facility with most recent attempt on 07/29. She apparently became aggressive and broke objects at the facility and was placed on section 12. She was subsequently cleared by [facility], but facility declined pt to return. During hospitalization, a repeat OT evaluation was performed on 08/22 and SLUMS with score 12/30 indicating dementia level cognition and OT continue to recommend discharge to an inpatient facility. She was also evaluated by psychiatry for capacity evaluation on 08/22. Patient lacks capacity to leave AGAINST MEDICAL ADVICE. Per psychiatry, patient cannot appreciate benefits/risks on high risk decisions, however is capable of making low risk decisions. SW assisting in new LTC placement. Of note, pt with elopement from hospital on 12/19 with return to ED on 12/21. Upon return, the pt did endorse SI. Therefore, psychiatry reevaluated the patient on 12/23 and she was not felt to meet section 12. -Continue Zyprexa 5 mg in the morning, 10 mg at night -Continue Zyprexa 5 mg twice daily as needed, Ativan 1 mg twice daily as needed -Continue Depakote 750 mg nightly -Continue Ativan 1 mg nightly, Latuda 80 mg twice daily, Effexor 112.5 mg daily, trazodone 50 mg nightly -Continue 1: 1 given elopement risk - HCP affirmed on 01/03 - Pt accepted by [facility] pending bed availability. Assessment & Plan (01/30/2025 5:00 PM EDT): Patient has a complex psychiatric history including PTSD, depression, and schizoaffective disorder, bipolar type. She has been a resident at [facility] since October 2020 following an anoxic brain injury and stroke due to cardiac arrest from a drug overdose (September 2020). She presented to the ED multiple times in the past due to attempts to leave facility with most recent attempt on 07/29. She apparently became aggressive and broke objects at the facility and was placed on section 12. She was subsequently cleared by [facility], but facility declined pt to return. During hospitalization, a repeat OT evaluation was performed on 08/22 and JANICE with score 12/30 indicating dementia level cognition and OT continue to recommend discharge to an inpatient facility. She was also evaluated by psychiatry for capacity evaluation on 08/22. Patient lacks capacity to leave AGAINST MEDICAL ADVICE. Per psychiatry, patient cannot appreciate benefits/risks on high risk decisions, however is capable of making low risk decisions. SW assisting in new LTC placement. Of note, pt with elopement from hospital on 12/19 with return to ED on 12/21. Upon return, the pt did endorse SI. Therefore, psychiatry reevaluated the patient on 12/23 and she was not felt to meet section 12. -Continue Zyprexa 5 mg in the morning, 10 mg at night -Continue Zyprexa 5 mg twice daily as needed, Ativan 1 mg twice daily as needed -Continue Depakote 750 mg nightly -Continue Ativan 1 mg nightly, Latuda 80 mg twice daily, Effexor 112.5 mg daily, trazodone 50 mg nightly -Continue 1: 1 given elopement risk - HCP affirmed on 01/03 Pt accepted by [facility] pending bed availability. Assessment & Plan (01/08/2025 10:31 AM EDT): Patient has a complex psychiatric history including PTSD, depression, and schizoaffective disorder, bipolar type. She has been a resident at [facility] since October 2020 following an anoxic brain injury and stroke due to cardiac arrest from a drug overdose (September 2020). She presented to the ED multiple times in the past due to attempts to leave facility with most recent attempt on 07/29. She apparently became aggressive and broke objects at the facility and was placed on section 12. She was subsequently cleared by [facility], but facility declined pt to return. During hospitalization, a repeat OT evaluation was performed on 08/22 and SLUMS with score 12/30 indicating dementia level cognition and OT continue to recommend discharge to an inpatient facility. She was also evaluated by psychiatry for capacity evaluation on 08/22. Patient lacks capacity to leave AGAINST MEDICAL ADVICE. Per psychiatry, patient cannot appreciate benefits/risks on high risk decisions, however is capable of making low risk decisions. SW assisting in new LTC placement. Of note, pt with elopement from hospital on 12/19 with return to ED on 12/21. Upon return, the pt did endorse SI. Therefore, psychiatry reevaluated the patient on 12/23 and she was not felt to meet section 12. -Continue Zyprexa 5 mg in the morning, 10 mg at night, -Continue Zyprexa 5 mg twice daily as needed, Ativan 1 mg twice daily as needed -Continue Depakote 750 mg nightly -Continue Ativan 1 mg nightly, Latuda 80 mg twice daily, Effexor 112.5 mg daily, trazodone 50 mg nightly -Continue 1: 1 given elopement risk Assessment & Plan (01/07/2025 12:01 PM EDT): Patient has a complex psychiatric history including PTSD, depression, and schizoaffective disorder, bipolar type. She has been a resident at [facility] since October 2020 following an anoxic brain injury and stroke due to cardiac arrest from a drug overdose (September 2020). She presented to the ED multiple times in the past due to attempts to leave facility with most recent attempt on 07/29. She apparently became aggressive and broke objects at the facility and was placed on section 12. She was subsequently cleared by [facility], but facility declined pt to return. During hospitalization, a repeat OT evaluation was performed on 08/22 and SLUMS with score 12/30 indicating dementia level cognition and OT continue to recommend discharge to an inpatient facility. She was also evaluated by psychiatry for capacity evaluation on 08/22. Patient lacks capacity to leave AGAINST MEDICAL ADVICE. Per psychiatry, patient cannot appreciate benefits/risks on high risk decisions, however is capable of making low risk decisions. SW assisting in new LTC placement. Of note, pt with elopement from hospital on 12/19 with return to ED on 12/21. Upon return, the pt did endorse SI. Therefore, psychiatry reevaluated the patient on 12/23 and she was not felt to meet section 12. -Continue Zyprexa 5 mg in the morning, 10 mg at night, -Continue Zyprexa 5 mg twice daily as needed, Ativan 1 mg twice daily as needed -Continue Depakote 750 mg nightly -Continue Ativan 1 mg nightly, Latuda 80 mg twice daily, Effexor 112.5 mg daily, trazodone 50 mg nightly -Continue 1: 1 given elopement risk Assessment & Plan (01/02/2025 12:20 PM EDT): Patient has a complex psychiatric history including PTSD, depression, and schizoaffective disorder, bipolar type. She has been a resident at [facility] since October 2020 following an anoxic brain injury and stroke due to cardiac arrest from a drug overdose (September 2020). She presented to the ED multiple times in the past due to attempts to leave facility with most recent attempt on 07/29. She apparently became aggressive and broke objects at the facility and was placed on section 12. She was subsequently cleared by [facility], but facility declined pt to return. During hospitalization, a repeat OT evaluation was performed on 08/22 and SLUMS with score 12/30 indicating dementia level cognition and OT continue to recommend discharge to an inpatient facility. She was also evaluated by psychiatry for capacity evaluation on 08/22. Patient lacks capacity to leave AGAINST MEDICAL ADVICE. Per psychiatry, patient cannot appreciate benefits/risks on high risk decisions, however is capable of making low risk decisions. SW assisting in new LTC placement. Of note, pt with elopement from hospital on 12/19 with return to ED on 12/21. Upon return, the pt did endorse SI. Therefore, psychiatry reevaluated the patient on 12/23 and she was not felt to meet section 12. -Continue Zyprexa 5 mg in the morning, 10 mg at night, -Continue Zyprexa 5 mg twice daily as needed, Ativan 1 mg twice daily as needed -Continue Depakote 750 mg nightly -Continue Ativan 1 mg nightly, Latuda 80 mg twice daily, Effexor 112.5 mg daily, trazodone 50 mg nightly Assessment & Plan (12/30/2024 2:21 PM EST): Patient has a complex psychiatric history including PTSD, depression, and schizoaffective disorder, bipolar type. She has been a resident at [facility] since October 2020 following an anoxic brain injury and stroke due to cardiac arrest from a drug overdose (September 2020). She presented to the ED multiple times in the past due to attempts to leave facility with most recent attempt on 07/29. She apparently became aggressive and broke objects at the facility and was placed on section 12. She was subsequently cleared by [facility]. A repeat OT evaluation was performed on 08/22 and SLUMS performed with score 12/30 indicating dementia level cognition and OT continue to recommend discharge to an inpatient facility. She was also evaluated by psychiatry for capacity evaluation on 08/22. Patient lacks capacity to leave AGAINST MEDICAL ADVICE per psychiatry. Per psychiatry, patient cannot appreciate benefits/risks on high risk decisions, however is capable of making low risk decisions. Psychiatry saw patient on 12/23 and lifted section 12. -Continue Zyprexa 5 mg in the morning, 10 mg at night, -Continue Zyprexa 5 mg twice daily as needed, Ativan 1 mg twice daily as needed -Continue Depakote 750 mg nightly -Continue Ativan 1 mg nightly, Latuda 80 mg twice daily, Effexor 112.5 mg daily, trazodone 50 mg nightly Assessment & Plan (12/23/2024 11:46 AM EST): Patient has a complex psychiatric history including PTSD, depression, and schizoaffective disorder, bipolar type. She has been a resident at [facility] since October 2020 following an anoxic brain injury and stroke due to cardiac arrest from a drug overdose (September 2020). She presented to the ED multiple times in the past due to attempts to leave facility with most recent attempt on 07/29. She apparently became aggressive and broke objects at the facility and was placed on section 12. She was subsequently cleared by [facility]. A repeat OT evaluation was performed on 08/22 and SLUMS performed with score 12/30 indicating dementia level cognition and OT continue to recommend discharge to an inpatient facility. She was also evaluated by psychiatry for capacity evaluation on 08/22. Patient lacks capacity to leave AGAINST MEDICAL ADVICE per psychiatry. Per psychiatry, patient cannot appreciate benefits/risks on high risk decisions, however is capable of making low risk decisions. Presents today with suicidal ideations and is on section 12. -On section 12 -Psychiatry consulted -Continue Zyprexa 5 mg in the morning, 10 mg at night, -Continue Zyprexa 5 mg twice daily as needed, Ativan 1 mg twice daily as needed -Continue Depakote 750 mg nightly -Continue Ativan 1 mg nightly, Latuda 80 mg twice daily, Effexor 112.5 mg daily, trazodone 50 mg nightly Assessment & Plan (12/19/2024 11:16 AM EST): Patient has a complex psychiatric history including PTSD, depression, and schizoaffective disorder, bipolar type. She has been a resident at [facility] since October 2020 following an anoxic brain injury and stroke due to cardiac arrest from a drug overdose (September 2020). The patient has presented to the emergency department over 20 times due to attempts to leave the facility. Events leading to this admission was pt attempted to elope, and when staff intervened, she became aggressive and broke objects in the facility. As a result, she was placed under Section 12 and brought to the emergency room for evaluation. She was assessed by [facility], and found to not meet section 12 criteria. She has now been medically cleared, however [facility] declined to accept her back alleging they cannot take care of her needs. On initial admission, patient displayed exit-seeking behavior, agitation, and aggression. The inpatient psychiatry team was consulted, and adjustments were made to her medication regimen, including increased doses of Depakote and Zyprexa. On August 02, she was noted to be lethargic, prompting a reduction in her morning Zyprexa dose. In discussions with Roberta, she expressed frustration about being confined to nursing facilities for several years and believes she should have more freedom as a young woman. She acknowledges struggling with complex decision-making, requiring assistance in determining the best course of action. Her brother, Rodrgiue, supports her in making most decisions but restricts her from risky choices, such as leaving against medical advice, due to concerns about a potential return to substance use. Before her stroke/cardiac arrest, Roberta lived independently in an apartment with assistance from a conservator through [facility]. A repeat OT evaluation performed on 08/22 with [facility] testing at a score 12/30 indicating dementia level cognition and OT continue to recommend discharge to an inpatient facility. She was also evaluated by psychiatry for capacity evaluation on 08/22. Patient lacks capacity to leave AGAINST MEDICAL ADVICE per psychiatry. Per psychiatry, patient cannot appreciate benefits/risks on high risk decisions, however is capable of making low risk decisions. - Patient does NOT meet Section 12 criteria - Continue on medication regimen of: - Zyprexa 5mg QAM, 10mg nightly and 5 mg BID PRN - Depakote 1750mg nightly, most recent valproic lvl 44 - Ativan 1 mg nightly - Latuda 80mg BID - Effexor 112.5mg daily - Trazodone 50mg nightly Discontinued below(has not needed in months): - Zyprexa 5mg BID PRN for agitation - Ativan 1 mg twice daily as needed agitation - Seroquel discontinued Assessment & Plan (12/13/2024 4:20 PM EST): Patient has a complex psychiatric history including PTSD, depression, and schizoaffective disorder, bipolar type. She has been a resident at [facility] since October 2020 following an anoxic brain injury and stroke due to cardiac arrest from a drug overdose (September 2020). The patient has presented to the emergency department over 20 times due to attempts to leave the facility. Events leading to this admission patient attempting to elope, and when staff intervened, she became aggressive and broke objects in the facility. As a result, she was placed under Section 12 and brought to the emergency room for evaluation. She was assessed by [facility], and found to not meet section 12 criteria. She has now been medically cleared, however [facility] decline to accept her back alleging they cannot take care of her needs. Upon admission, the patient displayed exit-seeking behavior, agitation, and aggression. The inpatient psychiatry team was consulted, and adjustments were made to her medication regimen, including increased doses of Depakote and Zyprexa. On August 02, she was noted to be lethargic, prompting a reduction in her morning Zyprexa dose. In discussions with Roberta, she expressed frustration about being confined to nursing facilities for several years and believes she should have more freedom as a young woman. Capacity had not been tested initially after arrest. She acknowledges struggling with complex decision-making, requiring assistance in determining the best course of action. Her brother, Rodrigue, supports her in making most decisions but restricts her from risky choices, such as leaving against medical advice, due to concerns about a potential return to substance use. Before her stroke/cardiac arrest, Roberta lived independently in an apartment with assistance from a conservator through [facility]. A repeat OT evaluation on 08/22 with [facility] testing resulted with a score 12/30 indicating dementia level cognition and OT continue to recommend discharge to an inpatient facility. She was also evaluated by psychiatry for capacity evaluation on 08/22. Patient lacks capacity to leave AGAINST MEDICAL ADVICE per psychiatry. Per psychiatry, patient cannot appreciate benefits/risks on high risk decisions, however is capable of making low risk decisions. - Patient does NOT meet Section 12 criteria - Continue on medication regimen of: - Zyprexa 5mg QAM, 10mg nightly and 5 mg BID PRN - Depakote 1750mg nightly, most recent valproic lvl 44 - Ativan 1 mg nightly - Latuda 80mg BID - Effexor 112.5mg daily - Trazodone 50mg nightly Discontinued (has not needed in months): - Zyprexa 5mg BID PRN for agitation - Ativan 1 mg twice daily as needed agitation - Seroquel discontinued Assessment & Plan (12/12/2024 5:04 PM EST): Patient has a complex psychiatric history including PTSD, depression, and schizoaffective disorder, bipolar type. She has been a resident at [facility] since October 2020 following an anoxic brain injury and stroke due to cardiac arrest from a drug overdose (September 2020). The patient has presented to the emergency department over 20 times due to attempts to leave the facility. Events leading to this admission patient attempting to elope, and when staff intervened, she became aggressive and broke objects in the facility. As a result, she was placed under Section 12 and brought to the emergency room for evaluation. She was assessed by [facility], and found to not meet section 12 criteria. She has now been medically cleared, however [facility] decline to accept her back alleging they cannot take care of her needs. Upon admission, the patient displayed exit-seeking behavior, agitation, and aggression. The inpatient psychiatry team was consulted, and adjustments were made to her medication regimen, including increased doses of Depakote and Zyprexa. On August 02, she was noted to be lethargic, prompting a reduction in her morning Zyprexa dose. In discussions with Roberta, she expressed frustration about being confined to nursing facilities for several years and believes she should have more freedom as a young woman. Capacity had not been tested initially after arrest. She acknowledges struggling with complex decision-making, requiring assistance in determining the best course of action. Her brother, Rodrigue, supports her in making most decisions but restricts her from risky choices, such as leaving against medical advice, due to concerns about a potential return to substance use. Before her stroke/cardiac arrest, Roberta lived independently in an apartment with assistance from a conservator through [facility]. A repeat OT evaluation on 08/22 with [facility] testing resulted with a score 12/30 indicating dementia level cognition and OT continue to recommend discharge to an inpatient facility. She was also evaluated by psychiatry for capacity evaluation on 08/22. Patient lacks capacity to leave AGAINST MEDICAL ADVICE per psychiatry. Per psychiatry, patient cannot appreciate benefits/risks on high risk decisions, however is capable of making low risk decisions. - Patient does NOT meet Section 12 criteria - Continue on medication regimen of: - Zyprexa 5mg QAM, 10mg nightly and 5 mg BID PRN - Depakote 1750mg nightly, most recent valproic lvl 44 - Ativan 1 mg nightly - Latuda 80mg BID - Effexor 112.5mg daily - Trazodone 50mg nightly Discontinued (has not needed in months): - Zyprexa 5mg BID PRN for agitation - Ativan 1 mg twice daily as needed agitation - Seroquel discontinued Assessment & Plan (12/11/2024 2:18 PM EST): Patient has a complex psychiatric history including PTSD, depression, and schizoaffective disorder, bipolar type. She has been a resident at [facility] since October 2020 following an anoxic brain injury and stroke due to cardiac arrest from a drug overdose (September 2020). The patient has presented to the emergency department over 20 times due to attempts to leave the facility. Events leading to this admission patient attempting to elope, and when staff intervened, she became aggressive and broke objects in the facility. As a result, she was placed under Section 12 and brought to the emergency room for evaluation. She was assessed by [facility], and found to not meet section 12 criteria. She has now been medically cleared, however [facility] decline to accept her back alleging they cannot take care of her needs. Upon admission, the patient displayed exit-seeking behavior, agitation, and aggression. The inpatient psychiatry team was consulted, and adjustments were made to her medication regimen, including increased doses of Depakote and Zyprexa. On August 02, she was noted to be lethargic, prompting a reduction in her morning Zyprexa dose. In discussions with Roberta, she expressed frustration about being confined to nursing facilities for several years and believes she should have more freedom as a young woman. Capacity had not been tested initially after arrest. She acknowledges struggling with complex decision-making, requiring assistance in determining the best course of action. Her brother, Rodrigue, supports her in making most decisions but restricts her from risky choices, such as leaving against medical advice, due to concerns about a potential return to substance use. Before her stroke/cardiac arrest, Roberta lived independently in an apartment with assistance from a conservator through [facility]. A repeat OT evaluation on 08/22 with [facility]MS testing resulted with a score 12/30 indicating dementia level cognition and OT continue to recommend discharge to an inpatient facility. She was also evaluated by psychiatry for capacity evaluation on 08/22. Patient lacks capacity to leave AGAINST MEDICAL ADVICE per psychiatry. Per psychiatry, patient cannot appreciate benefits/risks on high risk decisions, however is capable of making low risk decisions. - Patient does NOT meet Section 12 criteria - Continue on medication regimen of: - Zyprexa 5mg QAM, 10mg nightly and 5 mg BID PRN - Depakote 1750mg nightly, most recent valproic lvl 44 - Ativan 1 mg nightly - Latuda 80mg BID - Effexor 112.5mg daily - Trazodone 50mg nightly Discontinued (has not needed in months): - Zyprexa 5mg BID PRN for agitation - Ativan 1 mg twice daily as needed agitation - Seroquel discontinued Assessment & Plan (12/10/2024 5:07 PM EST): Patient has a complex psychiatric history including PTSD, depression, and schizoaffective disorder, bipolar type. She has been a resident at [facility] since October 2020 following an anoxic brain injury and stroke due to cardiac arrest from a drug overdose (September 2020). The patient has presented to the emergency department over 20 times due to attempts to leave the facility. Events leading to this admission patient attempting to elope, and when staff intervened, she became aggressive and broke objects in the facility. As a result, she was placed under Section 12 and brought to the emergency room for evaluation. She was assessed by [facility], and found to not meet section 12 criteria. She has now been medically cleared, however [facility] decline to accept her back alleging they cannot take care of her needs. Upon admission, the patient displayed exit-seeking behavior, agitation, and aggression. The inpatient psychiatry team was consulted, and adjustments were made to her medication regimen, including increased doses of Depakote and Zyprexa. On August 02, she was noted to be lethargic, prompting a reduction in her morning Zyprexa dose. In discussions with Roberta, she expressed frustration about being confined to nursing facilities for several years and believes she should have more freedom as a young woman. Capacity had not been tested initially after arrest. She acknowledges struggling with complex decision-making, requiring assistance in determining the best course of action. Her brother, Rodrigue, supports her in making most decisions but restricts her from risky choices, such as leaving against medical advice, due to concerns about a potential return to substance use. Before her stroke/cardiac arrest, Roberta lived independently in an apartment with assistance from a conservator through [facility]. A repeat OT evaluation on 08/22 with [facility]UMS testing resulted with a score 12/30 indicating dementia level cognition and OT continue to recommend discharge to an inpatient facility. She was also evaluated by psychiatry for capacity evaluation on 10/28. Patient lacks capacity to leave AGAINST MEDICAL ADVICE per psychiatry. Per psychiatry, patient cannot appreciate benefits/risks on high risk decisions, however is capable of making low risk decisions. - Patient does NOT meet Section 12 criteria - Continue on medication regimen of: - Zyprexa 5mg QAM, 10mg nightly and 5 mg BID PRN - Depakote 1750mg nightly, most recent valproic lvl 44 - Ativan 1 mg nightly - Latuda 80mg BID - Effexor 112.5mg daily - Trazodone 50mg nightly Discontinued (has not needed in months): - Zyprexa 5mg BID PRN for agitation - Ativan 1 mg twice daily as needed agitation - Seroquel discontinued Assessment & Plan (12/03/2024 2:46 PM EST): Patient has a complex psychiatric history including PTSD, depression, and schizoaffective disorder, bipolar type. She has been a resident at [facility] since October 2020 following an anoxic brain injury and stroke due to cardiac arrest from a drug overdose (September 2020). The patient has presented to the emergency department over 20 times due to attempts to leave the facility. Events leading to this admission patient attempting to elope, and when staff intervened, she became aggressive and broke objects in the facility. As a result, she was placed under Section 12 and brought to the emergency room for evaluation. She was assessed by [facility], and found to not meet section 12 criteria. She has now been medically cleared, however [facility] decline to accept her back alleging they cannot take care of her needs. Upon admission, the patient displayed exit-seeking behavior, agitation, and aggression. The inpatient psychiatry team was consulted, and adjustments were made to her medication regimen, including increased doses of Depakote and Zyprexa. On August 02, she was noted to be lethargic, prompting a reduction in her morning Zyprexa dose. In discussions with Roberta, she expressed frustration about being confined to nursing facilities for several years and believes she should have more freedom as a young woman. Capacity had not been tested initially after arrest. She acknowledges struggling with complex decision-making, requiring assistance in determining the best course of action. Her brother, Rodrigue, supports her in making most decisions but restricts her from risky choices, such as leaving against medical advice, due to concerns about a potential return to substance use. Before her stroke/cardiac arrest, Roberta lived independently in an apartment with assistance from a conservator through [facility]. A repeat OT evaluation on 08/22 with SLUMS testing resulted with a score 12/30 indicating dementia level cognition and OT continue to recommend discharge to an inpatient facility. She was also evaluated by psychiatry for capacity evaluation on 08/22. Patient lacks capacity to leave AGAINST MEDICAL ADVICE per psychiatry. Per psychiatry, patient cannot appreciate benefits/risks on high risk decisions, however is capable of making low risk decisions. - Patient does NOT meet Section 12 criteria - Continue on medication regimen of: - Zyprexa 5mg QAM, 10mg nightly and 5 mg BID PRN - Depakote 1750mg nightly, most recent valproic lvl 44 - Ativan 1 mg nightly - Latuda 80mg BID - Effexor 112.5mg daily - Trazodone 50mg nightly Discontinued (has not needed in months): - Zyprexa 5mg BID PRN for agitation - Ativan 1 mg twice daily as needed agitation - Seroquel discontinued Assessment & Plan (12/02/2024 11:15 AM EST): Patient has a complex psychiatric history including PTSD, depression, and schizoaffective disorder, bipolar type. She has been a resident at [facility] since October 2020 following an anoxic brain injury and stroke due to cardiac arrest from a drug overdose (September 2020). The patient has presented to the emergency department over 20 times due to attempts to leave the facility. Events leading to this admission patient attempting to elope, and when staff intervened, she became aggressive and broke objects in the facility. As a result, she was placed under Section 12 and brought to the emergency room for evaluation. She was assessed by [facility], and found to not meet section 12 criteria. She has now been medically cleared, however [facility] decline to accept her back alleging they cannot take care of her needs. Upon admission, the patient displayed exit-seeking behavior, agitation, and aggression. The inpatient psychiatry team was consulted, and adjustments were made to her medication regimen, including increased doses of Depakote and Zyprexa. On August 02, she was noted to be lethargic, prompting a reduction in her morning Zyprexa dose. In discussions with Roberta, she expressed frustration about being confined to nursing facilities for several years and believes she should have more freedom as a young woman. Capacity had not been tested initially after arrest. She acknowledges struggling with complex decision-making, requiring assistance in determining the best course of action. Her brother, Rodrigue, supports her in making most decisions but restricts her from risky choices, such as leaving against medical advice, due to concerns about a potential return to substance use. Before her stroke/cardiac arrest, Roberta lived independently in an apartment with assistance from a conservator through [facility]. A repeat OT evaluation on 08/22 with SLUMS testing resulted with a score 12/30 indicating dementia level cognition and OT continue to recommend discharge to an inpatient facility. She was also evaluated by psychiatry for capacity evaluation on 08/22. Patient lacks capacity to leave AGAINST MEDICAL ADVICE per psychiatry. Per psychiatry, patient cannot appreciate benefits/risks on high risk decisions, however is capable of making low risk decisions. - Patient does NOT meet Section 12 criteria - Continue on medication regimen of: - Zyprexa 5mg QAM, 10mg nightly and 5 mg BID PRN - Depakote 1750mg nightly, most recent valproic lvl 44 - Ativan 1 mg nightly - Latuda 80mg BID - Effexor 112.5mg daily - Trazodone 50mg nightly Discontinued (has not needed in months): - Zyprexa 5mg BID PRN for agitation - Ativan 1 mg twice daily as needed agitation - Seroquel discontinued Assessment & Plan (12/01/2024 2:09 PM EST): Patient has a complex psychiatric history including PTSD, depression, and schizoaffective disorder, bipolar type. She has been a resident at [facility] since October 2020 following an anoxic brain injury and stroke due to cardiac arrest from a drug overdose (September 2020). The patient has presented to the emergency department over 20 times due to attempts to leave the facility. Events leading to this admission patient attempting to elope, and when staff intervened, she became aggressive and broke objects in the facility. As a result, she was placed under Section 12 and brought to the emergency room for evaluation. She was assessed by [facility], and found to not meet section 12 criteria. She has now been medically cleared, however [facility] decline to accept her back alleging they cannot take care of her needs. Upon admission, the patient displayed exit-seeking behavior, agitation, and aggression. The inpatient psychiatry team was consulted, and adjustments were made to her medication regimen, including increased doses of Depakote and Zyprexa. On August 02, she was noted to be lethargic, prompting a reduction in her morning Zyprexa dose. In discussions with Roberta, she expressed frustration about being confined to nursing facilities for several years and believes she should have more freedom as a young woman. Capacity had not been tested initially after arrest. She acknowledges struggling with complex decision-making, requiring assistance in determining the best course of action. Her brother, Rodrigue, supports her in making most decisions but restricts her from risky choices, such as leaving against medical advice, due to concerns about a potential return to substance use. Before her stroke/cardiac arrest, Roberta lived independently in an apartment with assistance from a conservator through [facility]. A repeat OT evaluation on 08/22 with SLUMS testing resulted with a score 12/30 indicating dementia level cognition and OT continue to recommend discharge to an inpatient facility. She was also evaluated by psychiatry for capacity evaluation on 08/22. Patient lacks capacity to leave AGAINST MEDICAL ADVICE per psychiatry. Per psychiatry, patient cannot appreciate benefits/risks on high risk decisions, however is capable of making low risk decisions. - Patient does NOT meet Section 12 criteria - Continue on medication regimen of: - Zyprexa 5mg QAM, 10mg nightly and 5 mg BID PRN - Depakote 1750mg nightly, most recent valproic lvl 44 - Ativan 1 mg nightly - Latuda 80mg BID - Effexor 112.5mg daily - Trazodone 50mg nightly Discontinued (has not needed in months): - Zyprexa 5mg BID PRN for agitation - Ativan 1 mg twice daily as needed agitation - Seroquel discontinued Assessment & Plan (11/30/2024 3:52 PM EST): Patient has a complex psychiatric history including PTSD, depression, and schizoaffective disorder, bipolar type. She has been a resident at [facility] since October 2020 following an anoxic brain injury and stroke due to cardiac arrest from a drug overdose (September 2020). The patient has presented to the emergency department over 20 times due to attempts to leave the facility. Events leading to this admission patient attempting to elope, and when staff intervened, she became aggressive and broke objects in the facility. As a result, she was placed under Section 12 and brought to the emergency room for evaluation. She was assessed by [facility], and found to not meet section 12 criteria. She has now been medically cleared, however [facility] decline to accept her back alleging they cannot take care of her needs. Upon admission, the patient displayed exit-seeking behavior, agitation, and aggression. The inpatient psychiatry team was consulted, and adjustments were made to her medication regimen, including increased doses of Depakote and Zyprexa. On August 02, she was noted to be lethargic, prompting a reduction in her morning Zyprexa dose. In discussions with Roberta, she expressed frustration about being confined to nursing facilities for several years and believes she should have more freedom as a young woman. Capacity had not been tested initially after arrest. She acknowledges struggling with complex decision-making, requiring assistance in determining the best course of action. Her brother, Rodrigue, supports her in making most decisions but restricts her from risky choices, such as leaving against medical advice, due to concerns about a potential return to substance use. Before her stroke/cardiac arrest, Roberta lived independently in an apartment with assistance from a conservator through [facility]. A repeat OT evaluation on 08/22 with SLUMS testing resulted with a score 12/30 indicating dementia level cognition and OT continue to recommend discharge to an inpatient facility. She was also evaluated by psychiatry for capacity evaluation on 08/22. Patient lacks capacity to leave AGAINST MEDICAL ADVICE per psychiatry. Per psychiatry, patient cannot appreciate benefits/risks on high risk decisions, however is capable of making low risk decisions. - Patient does NOT meet Section 12 criteria - Continue on medication regimen of: - Zyprexa 5mg QAM, 10mg nightly and 5 mg BID PRN - Depakote 1750mg nightly, most recent valproic lvl 44 - Ativan 1 mg nightly - Latuda 80mg BID - Effexor 112.5mg daily - Trazodone 50mg nightly Discontinued (has not needed in months): - Zyprexa 5mg BID PRN for agitation - Ativan 1 mg twice daily as needed agitation - Seroquel discontinued Assessment & Plan (11/29/2024 10:52 AM EST): Patient has a complex psychiatric history including PTSD, depression, and schizoaffective disorder, bipolar type. She has been a resident at [facility] since October 2020 following an anoxic brain injury and stroke due to cardiac arrest from a drug overdose (September 2020). The patient has presented to the emergency department over 20 times due to attempts to leave the facility. Events leading to this admission patient attempting to elope, and when staff intervened, she became aggressive and broke objects in the facility. As a result, she was placed under Section 12 and brought to the emergency room for evaluation. She was assessed by [facility], and found to not meet section 12 criteria. She has now been medically cleared, however [facility] decline to accept her back alleging they cannot take care of her needs. Upon admission, the patient displayed exit-seeking behavior, agitation, and aggression. The inpatient psychiatry team was consulted, and adjustments were made to her medication regimen, including increased doses of Depakote and Zyprexa. On August 02, she was noted to be lethargic, prompting a reduction in her morning Zyprexa dose. A remote video monitor had been placed outside her door due to concerns about elopement. In discussions with Roberta, she expressed frustration about being confined to nursing facilities for several years and believes she should have more freedom as a young woman. Her capacity and cognition have not been formally re-evaluated since her cardiac arrest in 2019, though she feels she has made significant progress. She acknowledges struggling with complex decision-making, requiring assistance in determining the best course of action. Her brother, Rodrigue, supports her in making most decisions but restricts her from risky choices, such as leaving against medical advice, due to concerns about a potential return to substance use. Before her stroke/cardiac arrest, Roberta lived independently in an apartment with assistance from a conservator through [facility]. A repeat OT evaluation was performed on 08/22 and SLUMS performed with score 12/30 indicating dementia level cognition and OT continue to recommend discharge to an inpatient facility. She was also evaluated by psychiatry for capacity evaluation on 08/22. Patient lacks capacity to leave AGAINST MEDICAL ADVICE per psychiatry. Per psychiatry, patient cannot appreciate benefits/risks on high risk decisions, however is capable of making low risk decisions. - Patient does NOT meet Section 12 criteria - Continue on medication regimen of: - Zyprexa 5mg QAM, 10mg nightly and 5 mg BID PRN - Depakote 1750mg nightly, most recent valproic lvl 44 - Ativan 1 mg nightly - Latuda 80mg BID - Effexor 112.5mg daily - Trazodone 50mg nightly - Zyprexa 5mg BID PRN for agitation - Ativan 1 mg twice daily as needed agitation - Kailalyric discontinued Assessment & Plan (11/28/2024 10:13 AM EST): Patient has a complex psychiatric history including PTSD, depression, and schizoaffective disorder, bipolar type. She has been a resident at [facility] since October 2020 following an anoxic brain injury and stroke due to cardiac arrest from a drug overdose (September 2020). The patient has presented to the emergency department over 20 times due to attempts to leave the facility. Events leading to this admission patient attempting to elope, and when staff intervened, she became aggressive and broke objects in the facility. As a result, she was placed under Section 12 and brought to the emergency room for evaluation. She was assessed by [facility], and found to not meet section 12 criteria. She has now been medically cleared, however [facility] decline to accept her back alleging they cannot take care of her needs. Upon admission, the patient displayed exit-seeking behavior, agitation, and aggression. The inpatient psychiatry team was consulted, and adjustments were made to her medication regimen, including increased doses of Depakote and Zyprexa. On August 02, she was noted to be lethargic, prompting a reduction in her morning Zyprexa dose. A remote video monitor had been placed outside her door due to concerns about elopement. In discussions with Roberta, she expressed frustration about being confined to nursing facilities for several years and believes she should have more freedom as a young woman. Her capacity and cognition have not been formally re-evaluated since her cardiac arrest in 2019, though she feels she has made significant progress. She acknowledges struggling with complex decision-making, requiring assistance in determining the best course of action. Her brother, Rodrigue, supports her in making most decisions but restricts her from risky choices, such as leaving against medical advice, due to concerns about a potential return to substance use. Before her stroke/cardiac arrest, Roberta lived independently in an apartment with assistance from a conservator through [facility]. A repeat OT evaluation was performed on 08/22 and SLUMS performed with score 12/30 indicating dementia level cognition and OT continue to recommend discharge to an inpatient facility. She was also evaluated by psychiatry for capacity evaluation on 08/22. Patient lacks capacity to leave AGAINST MEDICAL ADVICE per psychiatry. Per psychiatry, patient cannot appreciate benefits/risks on high risk decisions, however is capable of making low risk decisions. - Patient does NOT meet Section 12 criteria - Continue on medication regimen of: - Zyprexa 5mg QAM, 10mg nightly and 5 mg BID PRN - Depakote 1750mg nightly, most recent valproic lvl 44 - Ativan 1 mg nightly - Latuda 80mg BID - Effexor 112.5mg daily - Trazodone 50mg nightly - Zyprexa 5mg BID PRN for agitation - Ativan 1 mg twice daily as needed agitation - Tobi discontinued Assessment & Plan (11/27/2024 10:04 AM EST): Patient has a complex psychiatric history including PTSD, depression, and schizoaffective disorder, bipolar type. She has been a resident at [facility] since October 2020 following an anoxic brain injury and stroke due to cardiac arrest from a drug overdose (September 2020). The patient has presented to the emergency department over 20 times due to attempts to leave the facility. Events leading to this admission patient attempting to elope, and when staff intervened, she became aggressive and broke objects in the facility. As a result, she was placed under Section 12 and brought to the emergency room for evaluation. She was assessed by [facility], and found to not meet section 12 criteria. She has now been medically cleared, however [facility] decline to accept her back alleging they cannot take care of her needs. Upon admission, the patient displayed exit-seeking behavior, agitation, and aggression. The inpatient psychiatry team was consulted, and adjustments were made to her medication regimen, including increased doses of Depakote and Zyprexa. On August 02, she was noted to be lethargic, prompting a reduction in her morning Zyprexa dose. A remote video monitor had been placed outside her door due to concerns about elopement. In discussions with Roberta, she expressed frustration about being confined to nursing facilities for several years and believes she should have more freedom as a young woman. Her capacity and cognition have not been formally re-evaluated since her cardiac arrest in 2019, though she feels she has made significant progress. She acknowledges struggling with complex decision-making, requiring assistance in determining the best course of action. Her brother, Rodrigue, supports her in making most decisions but restricts her from risky choices, such as leaving against medical advice, due to concerns about a potential return to substance use. Before her stroke/cardiac arrest, Roberta lived independently in an apartment with assistance from a conservator through [facility]. A repeat OT evaluation was performed on 08/22 and SLUMS performed with score 12/30 indicating dementia level cognition and OT continue to recommend discharge to an inpatient facility. She was also evaluated by psychiatry for capacity evaluation on 08/22. Patient lacks capacity to leave AGAINST MEDICAL ADVICE per psychiatry. Per psychiatry, patient cannot appreciate benefits/risks on high risk decisions, however is capable of making low risk decisions. - Patient does NOT meet Section 12 criteria - Continue on medication regimen of: - Zyprexa 5mg QAM, 10mg nightly and 5 mg BID PRN - Depakote 1750mg nightly, most recent valproic lvl 44 - Ativan 1 mg nightly - Latuda 80mg BID - Effexor 112.5mg daily - Trazodone 50mg nightly - Zyprexa 5mg BID PRN for agitation - Ativan 1 mg twice daily as needed agitation - Seroquel discontinued Assessment & Plan (11/26/2024 11:05 AM EST): Patient has a complex psychiatric history including PTSD, depression, and schizoaffective disorder, bipolar type. She has been a resident at [facility] since October 2020 following an anoxic brain injury and stroke due to cardiac arrest from a drug overdose (September 2020). The patient has presented to the emergency department over 20 times due to attempts to leave the facility. Events leading to this admission patient attempting to elope, and when staff intervened, she became aggressive and broke objects in the facility. As a result, she was placed under Section 12 and brought to the emergency room for evaluation. She was assessed by [facility], and found to not meet section 12 criteria. She has now been medically cleared, however [facility] decline to accept her back alleging they cannot take care of her needs. Upon admission, the patient displayed exit-seeking behavior, agitation, and aggression. The inpatient psychiatry team was consulted, and adjustments were made to her medication regimen, including increased doses of Depakote and Zyprexa. On August 02, she was noted to be lethargic, prompting a reduction in her morning Zyprexa dose. A remote video monitor had been placed outside her door due to concerns about elopement. In discussions with Roberta, she expressed frustration about being confined to nursing facilities for several years and believes she should have more freedom as a young woman. Her capacity and cognition have not been formally re-evaluated since her cardiac arrest in 2019, though she feels she has made significant progress. She acknowledges struggling with complex decision-making, requiring assistance in determining the best course of action. Her brother, Rodrigue, supports her in making most decisions but restricts her from risky choices, such as leaving against medical advice, due to concerns about a potential return to substance use. Before her stroke/cardiac arrest, Roberta lived independently in an apartment with assistance from a conservator through [facility]. A repeat OT evaluation was performed on 08/22 and SLUMS performed with score 12/30 indicating dementia level cognition and OT continue to recommend discharge to an inpatient facility. She was also evaluated by psychiatry for capacity evaluation on 08/22. Patient lacks capacity to leave AGAINST MEDICAL ADVICE per psychiatry. Per psychiatry, patient cannot appreciate benefits/risks on high risk decisions, however is capable of making low risk decisions. - Patient does NOT meet Section 12 criteria - Continue on medication regimen of: - Zyprexa 5mg QAM, 10mg nightly and 5 mg BID PRN - Depakote 1750mg nightly, most recent valproic lvl 44 - Ativan 1 mg nightly - Latuda 80mg BID - Effexor 112.5mg daily - Trazodone 50mg nightly - Zyprexa 5mg BID PRN for agitation - Ativan 1 mg twice daily as needed agitation - Seroquel discontinued Assessment & Plan (11/25/2024 12:51 PM EST): Patient has a complex psychiatric history including PTSD, depression, and schizoaffective disorder, bipolar type. She has been a resident at [facility] since October 2020 following an anoxic brain injury and stroke due to cardiac arrest from a drug overdose (September 2020). The patient has presented to the emergency department over 20 times due to attempts to leave the facility. Events leading to this admission patient attempting to elope, and when staff intervened, she became aggressive and broke objects in the facility. As a result, she was placed under Section 12 and brought to the emergency room for evaluation. She was assessed by [facility], and found to not meet section 12 criteria. She has now been medically cleared, however [facility] decline to accept her back alleging they cannot take care of her needs. Upon admission, the patient displayed exit-seeking behavior, agitation, and aggression. The inpatient psychiatry team was consulted, and adjustments were made to her medication regimen, including increased doses of Depakote and Zyprexa. On August 02, she was noted to be lethargic, prompting a reduction in her morning Zyprexa dose. A remote video monitor had been placed outside her door due to concerns about elopement. In discussions with Roberta, she expressed frustration about being confined to nursing facilities for several years and believes she should have more freedom as a young woman. Her capacity and cognition have not been formally re-evaluated since her cardiac arrest in 2019, though she feels she has made significant progress. She acknowledges struggling with complex decision-making, requiring assistance in determining the best course of action. Her brother, Rodrigue, supports her in making most decisions but restricts her from risky choices, such as leaving against medical advice, due to concerns about a potential return to substance use. Before her stroke/cardiac arrest, Roberta lived independently in an apartment with assistance from a conservator through [facility]. A repeat OT evaluation was performed on 08/22 and SLUMS performed with score 12/30 indicating dementia level cognition and OT continue to recommend discharge to an inpatient facility. She was also evaluated by psychiatry for capacity evaluation on 08/22. Patient lacks capacity to leave AGAINST MEDICAL ADVICE per psychiatry. Per psychiatry, patient cannot appreciate benefits/risks on high risk decisions, however is capable of making low risk decisions. - Patient does NOT meet Section 12 criteria - Continue on medication regimen of: - Zyprexa 5mg QAM, 10mg nightly and 5 mg BID PRN - Depakote 1750mg nightly, most recent valproic lvl 44 - Ativan 1 mg nightly - Latuda 80mg BID - Effexor 112.5mg daily - Trazodone 50mg nightly - Zyprexa 5mg BID PRN for agitation - Ativan 1 mg twice daily as needed agitation - Seroquel discontinued Assessment & Plan (11/24/2024 11:53 AM EST): Patient has a complex psychiatric history including PTSD, depression, and schizoaffective disorder, bipolar type. She has been a resident at [facility] since October 2020 following an anoxic brain injury and stroke due to cardiac arrest from a drug overdose (September 2020). The patient has presented to the emergency department over 20 times due to attempts to leave the facility. Events leading to this admission patient attempting to elope, and when staff intervened, she became aggressive and broke objects in the facility. As a result, she was placed under Section 12 and brought to the emergency room for evaluation. She was assessed by [facility], and found to not meet section 12 criteria. She has now been medically cleared, however [facility] decline to accept her back alleging they cannot take care of her needs. Upon admission, the patient displayed exit-seeking behavior, agitation, and aggression. The inpatient psychiatry team was consulted, and adjustments were made to her medication regimen, including increased doses of Depakote and Zyprexa. On August 02, she was noted to be lethargic, prompting a reduction in her morning Zyprexa dose. A remote video monitor had been placed outside her door due to concerns about elopement. In discussions with Roberta, she expressed frustration about being confined to nursing facilities for several years and believes she should have more freedom as a young woman. Her capacity and cognition have not been formally re-evaluated since her cardiac arrest in 2019, though she feels she has made significant progress. She acknowledges struggling with complex decision-making, requiring assistance in determining the best course of action. Her brother, Rodrigue, supports her in making most decisions but restricts her from risky choices, such as leaving against medical advice, due to concerns about a potential return to substance use. Before her stroke/cardiac arrest, Roberta lived independently in an apartment with assistance from a conservator through [facility]. A repeat OT evaluation was performed on 08/22 and SLUMS performed with score 12/30 indicating dementia level cognition and OT continue to recommend discharge to an inpatient facility. She was also evaluated by psychiatry for capacity evaluation on 08/22. Patient lacks capacity to leave AGAINST MEDICAL ADVICE per psychiatry. Per psychiatry, patient cannot appreciate benefits/risks on high risk decisions, however is capable of making low risk decisions. - Patient does NOT meet Section 12 criteria - Continue on medication regimen of: - Zyprexa 5mg QAM, 10mg nightly and 5 mg BID PRN - Depakote 1750mg nightly, most recent valproic lvl 44 - Ativan 1 mg nightly - Latuda 80mg BID - Effexor 112.5mg daily - Trazodone 50mg nightly - Zyprexa 5mg BID PRN for agitation - Ativan 1 mg twice daily as needed agitation - Seroquel discontinued Assessment & Plan (11/23/2024 2:19 PM EST): Patient has a complex psychiatric history including PTSD, depression, and schizoaffective disorder, bipolar type. She has been a resident at [facility] since October 2020 following an anoxic brain injury and stroke due to cardiac arrest from a drug overdose (September 2020). The patient has presented to the emergency department over 20 times due to attempts to leave the facility. Events leading to this admission patient attempting to elope, and when staff intervened, she became aggressive and broke objects in the facility. As a result, she was placed under Section 12 and brought to the emergency room for evaluation. She was assessed by [facility], and found to not meet section 12 criteria. She has now been medically cleared, however [facility] decline to accept her back alleging they cannot take care of her needs. Upon admission, the patient displayed exit-seeking behavior, agitation, and aggression. The inpatient psychiatry team was consulted, and adjustments were made to her medication regimen, including increased doses of Depakote and Zyprexa. On August 02, she was noted to be lethargic, prompting a reduction in her morning Zyprexa dose. A remote video monitor had been placed outside her door due to concerns about elopement. In discussions with Roberta, she expressed frustration about being confined to nursing facilities for several years and believes she should have more freedom as a young woman. Her capacity and cognition have not been formally re-evaluated since her cardiac arrest in 2019, though she feels she has made significant progress. She acknowledges struggling with complex decision-making, requiring assistance in determining the best course of action. Her brother, Rodrigue, supports her in making most decisions but restricts her from risky choices, such as leaving against medical advice, due to concerns about a potential return to substance use. Before her stroke/cardiac arrest, Roberta lived independently in an apartment with assistance from a conservator through [facility]. A repeat OT evaluation was performed on 08/22 and SLUMS performed with score 12/30 indicating dementia level cognition and OT continue to recommend discharge to an inpatient facility. She was also evaluated by psychiatry for capacity evaluation on 08/22. Patient lacks capacity to leave AGAINST MEDICAL ADVICE per psychiatry. Per psychiatry, patient cannot appreciate benefits/risks on high risk decisions, however is capable of making low risk decisions. - Patient does NOT meet Section 12 criteria - Continue on medication regimen of: - Zyprexa 5mg QAM, 10mg nightly and 5 mg BID PRN - Depakote 1750mg nightly, most recent valproic lvl 44 - Ativan 1 mg nightly - Latuda 80mg BID - Effexor 112.5mg daily - Trazodone 50mg nightly - Zyprexa 5mg BID PRN for agitation - Ativan 1 mg twice daily as needed agitation - Seroquel discontinued Assessment & Plan (11/22/2024 1:06 PM EST): Patient has a complex psychiatric history including PTSD, depression, and schizoaffective disorder, bipolar type. She has been a resident at [facility] since October 2020 following an anoxic brain injury and stroke due to cardiac arrest from a drug overdose (September 2020). The patient has presented to the emergency department over 20 times due to attempts to leave the facility. Events leading to this admission patient attempting to elope, and when staff intervened, she became aggressive and broke objects in the facility. As a result, she was placed under Section 12 and brought to the emergency room for evaluation. She was assessed by [facility], and found to not meet section 12 criteria. She has now been medically cleared, however [facility] decline to accept her back alleging they cannot take care of her needs. Upon admission, the patient displayed exit-seeking behavior, agitation, and aggression. The inpatient psychiatry team was consulted, and adjustments were made to her medication regimen, including increased doses of Depakote and Zyprexa. On August 02, she was noted to be lethargic, prompting a reduction in her morning Zyprexa dose. A remote video monitor had been placed outside her door due to concerns about elopement. In discussions with Roberta, she expressed frustration about being confined to nursing facilities for several years and believes she should have more freedom as a young woman. Her capacity and cognition have not been formally re-evaluated since her cardiac arrest in 2019, though she feels she has made significant progress. She acknowledges struggling with complex decision-making, requiring assistance in determining the best course of action. Her brother, Rodrigue, supports her in making most decisions but restricts her from risky choices, such as leaving against medical advice, due to concerns about a potential return to substance use. Before her stroke/cardiac arrest, Roberta lived independently in an apartment with assistance from a conservator through [facility]. A repeat OT evaluation was performed on 08/22 and SLUMS performed with score 12/30 indicating dementia level cognition and OT continue to recommend discharge to an inpatient facility. She was also evaluated by psychiatry for capacity evaluation on 08/22. Patient lacks capacity to leave AGAINST MEDICAL ADVICE per psychiatry. Per psychiatry, patient cannot appreciate benefits/risks on high risk decisions, however is capable of making low risk decisions. - Patient does NOT meet Section 12 criteria - Continue on medication regimen of: - Zyprexa 5mg QAM, 10mg nightly and 5 mg BID PRN - Depakote 1750mg nightly, most recent valproic lvl 44 - Ativan 1 mg nightly - Latuda 80mg BID - Effexor 112.5mg daily - Trazodone 50mg nightly - Zyprexa 5mg BID PRN for agitation - Ativan 1 mg twice daily as needed agitation - Tobi discontinued Assessment & Plan (11/06/2024 2:12 PM EST): Patient has a complex psychiatric history including PTSD, depression, and schizoaffective disorder, bipolar type. She has been a resident at [facility] since October 2020 following an anoxic brain injury and stroke due to cardiac arrest from a drug overdose (September 2020). The patient has presented to the emergency department over 20 times due to attempts to leave the facility. Events leading up to this hospitalization involved patient attempting to elope, and when staff intervened, she became aggressive and broke objects in the facility. As a result, she was placed under Section 12 and brought to the emergency room for evaluation. After assessment by [facility], she was found not to meet the criteria for Section 12. When asked about her agitation, the patient expressed dissatisfaction with her living situation. Following her clearance, Ashley Car reported to the ED case management that her needs exceeded what they could accommodate and declined to accept her back. Upon admission, the patient displayed exit-seeking behavior, agitation, and aggression. The inpatient psychiatry team was consulted, and adjustments were made to her medication regimen, including increased doses of Depakote and Zyprexa. On August 02, she was noted to be lethargic, prompting a reduction in her morning Zyprexa dose. A remote video monitor had been placed outside her door due to concerns about elopement. In discussions with Roberta, she expressed frustration about being confined to nursing facilities for several years and believes she should have more freedom as a young woman. Her capacity and cognition have not been formally re-evaluated since her cardiac arrest in 2019, though she feels she has made significant progress. She acknowledges struggling with complex decision-making, requiring assistance in determining the best course of action. Her brother, Rodrigue, supports her in making most decisions but restricts her from risky choices, such as leaving against medical advice, due to concerns about a potential return to substance use. Before her stroke/cardiac arrest, Roberta lived independently in an apartment with assistance from a conservator through [facility]. A repeat OT evaluation was performed on 08/22 and SLUMS performed with score 12/30 indicating dementia level cognition and OT continue to recommend discharge to an inpatient facility. She was also evaluated by psychiatry for capacity evaluation on 08/22. Patient lacks capacity to leave AGAINST MEDICAL ADVICE per psychiatry. Per psychiatry, patient cannot appreciate benefits/risks on high risk decisions, however is capable of making low risk decisions. - Patient does NOT meet Section 12 criteria - Medications: - Zyprexa 5mg QAM, 10mg nightly and 5 mg BID PRN - Depakote 1750mg nightly, most recent valproic lvl 44 - Ativan 1 mg nightly - Latuda 80mg BID - Effexor 112.5mg daily - Trazodone 50mg nightly - Zyprexa 5mg BID PRN for agitation - Ativan 1 mg twice daily as needed agitation - Seroquel discontinued Assessment & Plan (11/05/2024 11:29 AM EST): Patient has a complex psychiatric history including PTSD, depression, and schizoaffective disorder, bipolar type. She has been a resident at [facility] since October 2020 following an anoxic brain injury and stroke due to cardiac arrest from a drug overdose (September 2020). The patient has presented to the emergency department over 20 times due to attempts to leave the facility. Events leading up to this hospitalization involved patient attempting to elope, and when staff intervened, she became aggressive and broke objects in the facility. As a result, she was placed under Section 12 and brought to the emergency room for evaluation. After assessment by [facility], she was found not to meet the criteria for Section 12. When asked about her agitation, the patient expressed dissatisfaction with her living situation. Following her clearance, Ashley Car reported to the ED case management that her needs exceeded what they could accommodate and declined to accept her back. Upon admission, the patient displayed exit-seeking behavior, agitation, and aggression. The inpatient psychiatry team was consulted, and adjustments were made to her medication regimen, including increased doses of Depakote and Zyprexa. On August 02, she was noted to be lethargic, prompting a reduction in her morning Zyprexa dose. A remote video monitor had been placed outside her door due to concerns about elopement. In discussions with Roberta, she expressed frustration about being confined to nursing facilities for several years and believes she should have more freedom as a young woman. Her capacity and cognition have not been formally re-evaluated since her cardiac arrest in 2019, though she feels she has made significant progress. She acknowledges struggling with complex decision-making, requiring assistance in determining the best course of action. Her brother, Rodrigue, supports her in making most decisions but restricts her from risky choices, such as leaving against medical advice, due to concerns about a potential return to substance use. Before her stroke/cardiac arrest, Roberta lived independently in an apartment with assistance from a conservator through [facility]. A repeat OT evaluation was performed on 08/22 and SLUMS performed with score 12/30 indicating dementia level cognition and OT continue to recommend discharge to an inpatient facility. She was also evaluated by psychiatry for capacity evaluation on 08/22. Patient lacks capacity to leave AGAINST MEDICAL ADVICE per psychiatry. Per psychiatry, patient cannot appreciate benefits/risks on high risk decisions, however is capable of making low risk decisions. - Patient does NOT meet Section 12 criteria - Medications: - Zyprexa 5mg QAM, 10mg nightly and 5 mg BID PRN - Depakote 1750mg nightly, most recent valproic lvl 44 - Ativan 1 mg nightly - Latuda 80mg BID - Effexor 112.5mg daily - Trazodone 50mg nightly - Zyprexa 5mg BID PRN for agitation - Ativan 1 mg twice daily as needed agitation - Seroquel discontinued Assessment & Plan (11/04/2024 10:11 AM EST): Patient has a complex psychiatric history including PTSD, depression, and schizoaffective disorder, bipolar type. She has been a resident at [facility] since October 2020 following an anoxic brain injury and stroke due to cardiac arrest from a drug overdose (September 2020). The patient has presented to the emergency department over 20 times due to attempts to leave the facility. Events leading up to this hospitalization involved patient attempting to elope, and when staff intervened, she became aggressive and broke objects in the facility. As a result, she was placed under Section 12 and brought to the emergency room for evaluation. After assessment by [facility], she was found not to meet the criteria for Section 12. When asked about her agitation, the patient expressed dissatisfaction with her living situation. Following her clearance, Ashley Car reported to the ED case management that her needs exceeded what they could accommodate and declined to accept her back. Upon admission, the patient displayed exit-seeking behavior, agitation, and aggression. The inpatient psychiatry team was consulted, and adjustments were made to her medication regimen, including increased doses of Depakote and Zyprexa. On August 02, she was noted to be lethargic, prompting a reduction in her morning Zyprexa dose. A remote video monitor had been placed outside her door due to concerns about elopement. In discussions with Roberta, she expressed frustration about being confined to nursing facilities for several years and believes she should have more freedom as a young woman. Her capacity and cognition have not been formally re-evaluated since her cardiac arrest in 2019, though she feels she has made significant progress. She acknowledges struggling with complex decision-making, requiring assistance in determining the best course of action. Her brother, Rodrigue, supports her in making most decisions but restricts her from risky choices, such as leaving against medical advice, due to concerns about a potential return to substance use. Before her stroke/cardiac arrest, Roberta lived independently in an apartment with assistance from a conservator through [facility]. A repeat OT evaluation was performed on 08/22 and SLUMS performed with score 10/24 indicating dementia level cognition and OT continue to recommend discharge to an inpatient facility. She was also evaluated by psychiatry for capacity evaluation on 08/22. Patient lacks capacity to leave AGAINST MEDICAL ADVICE per psychiatry. Per psychiatry, patient cannot appreciate benefits/risks on high risk decisions, however is capable of making low risk decisions. - Patient does NOT meet Section 12 criteria - Medications: - Zyprexa 5mg QAM, 10mg nightly and 5 mg BID PRN - Depakote 1750mg nightly, most recent valproic lvl 44 - Ativan 1 mg nightly - Latuda 80mg BID - Effexor 112.5mg daily - Trazodone 50mg nightly - Zyprexa 5mg BID PRN for agitation - Ativan 1 mg twice daily as needed agitation - Seroquel discontinued Assessment & Plan (11/03/2024 10:30 AM EST): Patient has a complex psychiatric history including PTSD, depression, and schizoaffective disorder, bipolar type. She has been a resident at [facility] since October 2020 following an anoxic brain injury and stroke due to cardiac arrest from a drug overdose (September 2020). The patient has presented to the emergency department over 20 times due to attempts to leave the facility. Events leading up to this hospitalization involved patient attempting to elope, and when staff intervened, she became aggressive and broke objects in the facility. As a result, she was placed under Section 12 and brought to the emergency room for evaluation. After assessment by [facility], she was found not to meet the criteria for Section 12. When asked about her agitation, the patient expressed dissatisfaction with her living situation. Following her clearance, Ashley Car reported to the ED case management that her needs exceeded what they could accommodate and declined to accept her back. Upon admission, the patient displayed exit-seeking behavior, agitation, and aggression. The inpatient psychiatry team was consulted, and adjustments were made to her medication regimen, including increased doses of Depakote and Zyprexa. On August 02, she was noted to be lethargic, prompting a reduction in her morning Zyprexa dose. A remote video monitor had been placed outside her door due to concerns about elopement. In discussions with Roberta, she expressed frustration about being confined to nursing facilities for several years and believes she should have more freedom as a young woman. Her capacity and cognition have not been formally re-evaluated since her cardiac arrest in 2019, though she feels she has made significant progress. She acknowledges struggling with complex decision-making, requiring assistance in determining the best course of action. Her brother, Rodrigue, supports her in making most decisions but restricts her from risky choices, such as leaving against medical advice, due to concerns about a potential return to substance use. Before her stroke/cardiac arrest, Roberat lived independently in an apartment with assistance from a conservator through [facility]. A repeat OT evaluation was performed on 08/22 and SLUMS performed with score 12/30 indicating dementia level cognition and OT continue to recommend discharge to an inpatient facility. She was also evaluated by psychiatry for capacity evaluation on 08/22. Patient lacks capacity to leave AGAINST MEDICAL ADVICE per psychiatry. Per psychiatry, patient cannot appreciate benefits/risks on high risk decisions, however is capable of making low risk decisions. - Patient does NOT meet Section 12 criteria - Medications: - Zyprexa 5mg QAM, 10mg nightly and 5 mg BID PRN - Depakote 1750mg nightly, most recent valproic lvl 44 - Ativan 1 mg nightly - Latuda 80mg BID - Effexor 112.5mg daily - Trazodone 50mg nightly - Zyprexa 5mg BID PRN for agitation - Ativan 1 mg twice daily as needed agitation - Seroquel discontinued - Recent EKG from 09/15 revealed QTC 447 Assessment & Plan (10/24/2024 2:17 PM EST): Patient has a complex psychiatric history including PTSD, depression, and schizoaffective disorder, bipolar type. She has been a resident at [facility] since October 2020 following an anoxic brain injury and stroke due to cardiac arrest from a drug overdose (September 2020). The patient has presented to the emergency department over 20 times due to attempts to leave the facility. Events leading up to this hospitalization involved patient attempting to elope, and when staff intervened, she became aggressive and broke objects in the facility. As a result, she was placed under Section 12 and brought to the emergency room for evaluation. After assessment by [facility], she was found not to meet the criteria for Section 12. When asked about her agitation, the patient expressed dissatisfaction with her living situation. Following her clearance, Ashley Car reported to the ED case management that her needs exceeded what they could accommodate and declined to accept her back. Upon admission, the patient displayed exit-seeking behavior, agitation, and aggression. The inpatient psychiatry team was consulted, and adjustments were made to her medication regimen, including increased doses of Depakote and Zyprexa. On August 02, she was noted to be lethargic, prompting a reduction in her morning Zyprexa dose. A remote video monitor had been placed outside her door due to concerns about elopement. In discussions with Roberta, she expressed frustration about being confined to nursing facilities for several years and believes she should have more freedom as a young woman. Her capacity and cognition have not been formally re-evaluated since her cardiac arrest in 2019, though she feels she has made significant progress. She acknowledges struggling with complex decision-making, requiring assistance in determining the best course of action. Her brother, Rodrigue, supports her in making most decisions but restricts her from risky choices, such as leaving against medical advice, due to concerns about a potential return to substance use. Before her stroke/cardiac arrest, Roberta lived independently in an apartment with assistance from a conservator through [facility]. A repeat OT evaluation was performed on 08/22 and SLUMS performed with score 12/30 indicating dementia level cognition and OT continue to recommend discharge to an inpatient facility. She was also evaluated by psychiatry for capacity evaluation on 08/22. Patient lacks capacity to leave AGAINST MEDICAL ADVICE per psychiatry. Per psychiatry, patient cannot appreciate benefits/risks on high risk decisions, however is capable of making low risk decisions. - Patient does NOT meet Section 12 criteria - Medications: - Zyprexa 5mg QAM, 10mg nightly and 5 mg BID PRN - Depakote 1750mg nightly, most recent valproic lvl 44 - Ativan 1 mg nightly - Latuda 80mg BID - Effexor 112.5mg daily - Trazodone 50mg nightly - Zyprexa 5mg BID PRN for agitation - Ativan 1 mg twice daily as needed agitation - Seroquel discontinued - Recent EKG from 09/15 revealed QTC 47 Assessment & Plan (10/23/2024 11:07 AM EST): Patient has a complex psychiatric history including PTSD, depression, and schizoaffective disorder, bipolar type. She has been a resident at [facility] since October 2020 following an anoxic brain injury and stroke due to cardiac arrest from a drug overdose (September 2020). The patient has presented to the emergency department over 20 times due to attempts to leave the facility. Events leading up to this hospitalization involved patient attempting to elope, and when staff intervened, she became aggressive and broke objects in the facility. As a result, she was placed under Section 12 and brought to the emergency room for evaluation. After assessment by [facility], she was found not to meet the criteria for Section 12. When asked about her agitation, the patient expressed dissatisfaction with her living situation. Following her clearance, Ashley Car reported to the ED case management that her needs exceeded what they could accommodate and declined to accept her back. Upon admission, the patient displayed exit-seeking behavior, agitation, and aggression. The inpatient psychiatry team was consulted, and adjustments were made to her medication regimen, including increased doses of Depakote and Zyprexa. On August 02, she was noted to be lethargic, prompting a reduction in her morning Zyprexa dose. A remote video monitor had been placed outside her door due to concerns about elopement. In discussions with Roberta, she expressed frustration about being confined to nursing facilities for several years and believes she should have more freedom as a young woman. Her capacity and cognition have not been formally re-evaluated since her cardiac arrest in 2019, though she feels she has made significant progress. She acknowledges struggling with complex decision-making, requiring assistance in determining the best course of action. Her brother, Rodrigue, supports her in making most decisions but restricts her from risky choices, such as leaving against medical advice, due to concerns about a potential return to substance use. Before her stroke/cardiac arrest, Roberta lived independently in an apartment with assistance from a conservator through [facility]. A repeat OT evaluation was performed on 08/22 and SLUMS performed with score 12/30 indicating dementia level cognition and OT continue to recommend discharge to an inpatient facility. She was also evaluated by psychiatry for capacity evaluation on 08/22. Patient lacks capacity to leave AGAINST MEDICAL ADVICE per psychiatry. Per psychiatry, patient cannot appreciate benefits/risks on high risk decisions, however is capable of making low risk decisions. - Patient does NOT meet Section 12 criteria - Medications: - Zyprexa 5mg QAM, 10mg nightly and 5 mg BID PRN - Depakote 1750mg nightly, most recent valproic lvl 44 - Ativan 1 mg nightly - Latuda 80mg BID - Effexor 112.5mg daily - Trazodone 50mg nightly - Zyprexa 5mg BID PRN for agitation - Ativan 1 mg twice daily as needed agitation - Seroquel discontinued - Recent EKG from 09/15 revealed QTC 47 Assessment & Plan (10/14/2024 5:06 PM EST): Patient has a complex psychiatric history including PTSD, depression, and schizoaffective disorder, bipolar type. She has been a resident at [facility] since October 2020 following an anoxic brain injury and stroke due to cardiac arrest from a drug overdose (September 2020). The patient has presented to the emergency department over 20 times due to attempts to leave the facility. Events leading up to this hospitalization involved patient attempting to elope, and when staff intervened, she became aggressive and broke objects in the facility. As a result, she was placed under Section 12 and brought to the emergency room for evaluation. After assessment by [facility], she was found not to meet the criteria for Section 12. When asked about her agitation, the patient expressed dissatisfaction with her living situation. Following her clearance, Ashley Car reported to the ED case management that her needs exceeded what they could accommodate and declined to accept her back. Upon admission, the patient displayed exit-seeking behavior, agitation, and aggression. The inpatient psychiatry team was consulted, and adjustments were made to her medication regimen, including increased doses of Depakote and Zyprexa. On August 02, she was noted to be lethargic, prompting a reduction in her morning Zyprexa dose. A remote video monitor had been placed outside her door due to concerns about elopement. In discussions with Roberta, she expressed frustration about being confined to nursing facilities for several years and believes she should have more freedom as a young woman. Her capacity and cognition have not been formally re-evaluated since her cardiac arrest in 2019, though she feels she has made significant progress. She acknowledges struggling with complex decision-making, requiring assistance in determining the best course of action. Her brother, Rodrigue, supports her in making most decisions but restricts her from risky choices, such as leaving against medical advice, due to concerns about a potential return to substance use. Before her stroke/cardiac arrest, Roberta lived independently in an apartment with assistance from a conservator through [facility]. A repeat OT evaluation was performed on 08/22 and SLUMS performed with score 12/30 indicating dementia level cognition and OT continue to recommend discharge to an inpatient facility. She was also evaluated by psychiatry for capacity evaluation on 08/22. Patient lacks capacity to leave AGAINST MEDICAL ADVICE per psychiatry. Per psychiatry, patient cannot appreciate benefits/risks on high risk decisions, however is capable of making low risk decisions. - Patient does NOT meet Section 12 criteria - Medications: - Zyprexa 5mg QAM, 10mg nightly and 5 mg BID PRN - Depakote 1750mg nightly, most recent valproic lvl 44 - Ativan 1 mg nightly - Latuda 80mg BID - Effexor 112.5mg daily - Trazodone 50mg nightly - Zyprexa 5mg BID PRN for agitation - Ativan 1 mg twice daily as needed agitation - Seroquel discontinued - Recent EKG from 09/15 revealed QTC 47 Assessment & Plan (09/30/2024 4:48 PM EST): Patient has a complex psychiatric history including PTSD, depression, and schizoaffective disorder, bipolar type. She has been a resident at [facility] since October 2020 following an anoxic brain injury and stroke due to cardiac arrest from a drug overdose (September 2020). The patient has presented to the emergency department over 20 times due to attempts to leave the facility. The events leading up to this hospitalization involved patient attempting to elope, and when staff intervened, she became aggressive and broke objects in the facility. As a result, she was placed under Section 12 and brought to the emergency room for evaluation. After assessment by [facility], she was found not to meet the criteria for Section 12. When asked about her agitation, the patient expressed dissatisfaction with her living situation. Following her clearance, Ashley Car reported to the ED case management that her needs exceeded what they could accommodate and declined to accept her back. Upon admission, the patient displayed exit-seeking behavior, agitation, and aggression. The inpatient psychiatry team was consulted, and adjustments were made to her medication regimen, including increased doses of Depakote and Zyprexa. On August 02, she was noted to be lethargic, prompting a reduction in her morning Zyprexa dose. A remote video monitor had been placed outside her door due to concerns about elopement. In discussions with Roberta, she expressed frustration about being confined to nursing facilities for several years and believes she should have more freedom as a young woman. Her capacity and cognition have not been formally re-evaluated since her cardiac arrest in 2019, though she feels she has made significant progress. She acknowledges struggling with complex decision-making, requiring assistance in determining the best course of action. Her brother, Rodrigue, supports her in making most decisions but restricts her from risky choices, such as leaving against medical advice, due to concerns about a potential return to substance use. Before her stroke/cardiac arrest, Roberta lived independently in an apartment with assistance from a conservator through [facility]. A repeat OT evaluation was performed on 08/22 and SLUMS performed with score 12/30 indicating dementia level cognition and OT continue to recommend discharge to an inpatient facility. She was also evaluated by psychiatry for capacity evaluation on 08/22. Patient lacks capacity to leave AGAINST MEDICAL ADVICE per psychiatry. Per psychiatry, patient cannot appreciate benefits/risks on high risk decisions, however is capable of making low risk decisions - Patient does NOT meet Section 12 criteria - Medications: - Zyprexa 5mg QAM, 10mg nightly and 5 mg BID PRN - Depakote 1750mg nightly, most recent valproic lvl 44 - Ativan 1 mg nightly - Latuda 80mg BID - Effexor 112.5mg daily - Trazodone 50mg nightly - Zyprexa 5mg BID PRN for agitation - Ativan 1 mg twice daily as needed agitation - Seroquel discontinued - Recent EKG from 09/15 revealed QTC 47 Assessment & Plan (09/29/2024 1:51 PM EST): Patient has a complex psychiatric history including PTSD, depression, and schizoaffective disorder, bipolar type. She has been a resident at [facility] since October 2020 following an anoxic brain injury and stroke due to cardiac arrest from a drug overdose (September 2020). The patient has presented to the emergency department over 20 times due to attempts to leave the facility. The events leading up to this hospitalization involved patient attempting to elope, and when staff intervened, she became aggressive and broke objects in the facility. As a result, she was placed under Section 12 and brought to the emergency room for evaluation. After assessment by [facility], she was found not to meet the criteria for Section 12. When asked about her agitation, the patient expressed dissatisfaction with her living situation. Following her clearance, Ashley Car reported to the ED case management that her needs exceeded what they could accommodate and declined to accept her back. Upon admission, the patient displayed exit-seeking behavior, agitation, and aggression. The inpatient psychiatry team was consulted, and adjustments were made to her medication regimen, including increased doses of Depakote and Zyprexa. On August 02, she was noted to be lethargic, prompting a reduction in her morning Zyprexa dose. A remote video monitor had been placed outside her door due to concerns about elopement. In discussions with Roberta, she expressed frustration about being confined to nursing facilities for several years and believes she should have more freedom as a young woman. Her capacity and cognition have not been formally re-evaluated since her cardiac arrest in 2019, though she feels she has made significant progress. She acknowledges struggling with complex decision-making, requiring assistance in determining the best course of action. Her brother, Rodrigue, supports her in making most decisions but restricts her from risky choices, such as leaving against medical advice, due to concerns about a potential return to substance use. Before her stroke/cardiac arrest, Roberta lived independently in an apartment with assistance from a conservator through [facility]. A repeat OT evaluation was performed on 08/22 and SLUMS performed with score 12/30 indicating dementia level cognition and OT continue to recommend discharge to an inpatient facility. She was also evaluated by psychiatry for capacity evaluation on 08/22. Patient lacks capacity to leave AGAINST MEDICAL ADVICE per psychiatry. Per psychiatry, patient cannot appreciate benefits/risks on high risk decisions, however is capable of making low risk decisions - Patient does NOT meet Section 12 criteria - Medications: - Zyprexa 5mg QAM, 10mg nightly and 5 mg BID PRN - Depakote 1750mg nightly, most recent valproic lvl 44 - Ativan 1 mg nightly - Latuda 80mg BID - Effexor 112.5mg daily - Trazodone 50mg nightly - Zyprexa 5mg BID PRN for agitation - Ativan 1 mg twice daily as needed agitation - Seroquel discontinued - Recent EKG from 09/15 revealed QTC 47 Assessment & Plan (09/28/2024 2:31 PM EST): Patient has a complex psychiatric history including PTSD, depression, and schizoaffective disorder, bipolar type. She has been a resident at [facility] since October 2020 following an anoxic brain injury and stroke due to cardiac arrest from a drug overdose (September 2020). The patient has presented to the emergency department over 20 times due to attempts to leave the facility. The events leading up to this hospitalization involved patient attempting to elope, and when staff intervened, she became aggressive and broke objects in the facility. As a result, she was placed under Section 12 and brought to the emergency room for evaluation. After assessment by [facility], she was found not to meet the criteria for Section 12. When asked about her agitation, the patient expressed dissatisfaction with her living situation. Following her clearance, Ashley Car reported to the ED case management that her needs exceeded what they could accommodate and declined to accept her back. Upon admission, the patient displayed exit-seeking behavior, agitation, and aggression. The inpatient psychiatry team was consulted, and adjustments were made to her medication regimen, including increased doses of Depakote and Zyprexa. On August 02, she was noted to be lethargic, prompting a reduction in her morning Zyprexa dose. As of August 11, she had not required restraints and is no longer on 15-minute checks. A remote video monitor had been placed outside her door due to concerns about elopement. In discussions with Roberta, she expressed frustration about being confined to nursing facilities for several years and believes she should have more freedom as a young woman. Her capacity and cognition have not been formally re-evaluated since her cardiac arrest in 2019, though she feels she has made significant progress. She acknowledges struggling with complex decision-making, requiring assistance in determining the best course of action. Her brother, Rodrigue, supports her in making most decisions but restricts her from risky choices, such as leaving against medical advice, due to concerns about a potential return to substance use. Before her stroke/cardiac arrest, Roberta lived independently in an apartment with assistance from a conservator through [facility]. A repeat OT evaluation was performed on 08/22 and SLUMS performed with score 12/30 indicating dementia level cognition and OT continue to recommend discharge to an inpatient facility. She was also evaluated by psychiatry for capacity evaluation on 08/22. Patient lacks capacity to leave AGAINST MEDICAL ADVICE per psychiatry. Per psychiatry, patient cannot appreciate benefits/risks on high risk decisions, however is capable of making low risk decisions - Patient does NOT meet Section 12 criteria - Medications: - Zyprexa 5mg QAM, 10mg nightly and 5 mg BID PRN - Depakote 1750mg nightly, most recent valproic lvl 44 - Ativan 1 mg nightly - Latuda 80mg BID - Effexor 112.5mg daily - Trazodone 50mg nightly - Zyprexa 5mg BID PRN for agitation - Ativan 1 mg twice daily as needed agitation - Seroquel discontinued - Recent EKG from 09/15 revealed QTC 47 Assessment & Plan (09/11/2024 11:00 AM EST): Patient has a complex psychiatric history including PTSD, depression, and schizoaffective disorder, bipolar type. She has been a resident at [facility] since October 2020 following an anoxic brain injury and stroke due to cardiac arrest from a drug overdose (September 2020). The patient has presented to the emergency department over 20 times due to attempts to leave the facility. The events leading up to this hospitalization involved patient attempting to elope, and when staff intervened, she became aggressive and broke objects in the facility. As a result, she was placed under Section 12 and brought to the emergency room for evaluation. After assessment by [facility], she was found not to meet the criteria for Section 12. When asked about her agitation, the patient expressed dissatisfaction with her living situation. Following her clearance, Ashley Car reported to the ED case management that her needs exceeded what they could accommodate and declined to accept her back. Upon admission, the patient displayed exit-seeking behavior, agitation, and aggression. The inpatient psychiatry team was consulted, and adjustments were made to her medication regimen, including increased doses of Depakote and Zyprexa. On August 02, she was noted to be lethargic, prompting a reduction in her morning Zyprexa dose. As of August 11, she had not required restraints for over a week and was no longer on 15-minute checks. A remote video monitor had been placed outside her door due to concerns about elopement. In discussions with Roberta, she expressed frustration about being confined to nursing facilities for several years and believes she should have more freedom as a young woman. Her capacity and cognition have not been formally re-evaluated since her cardiac arrest in 2019, though she feels she has made significant progress. She acknowledges struggling with complex decision-making, requiring assistance in determining the best course of action. Her brother, Rodrigue, supports her in making most decisions but restricts her from risky choices, such as leaving against medical advice, due to concerns about a potential return to substance use. Before her stroke/cardiac arrest, Roberta lived independently in an apartment with assistance from a conservator through [facility]. Pt reported difficulties managing her frustration, particularly in environments where others escalate in response to her agitation. She attributes these episodes to restrictions on her freedom and feels unjustly confined. While she recognizes the need for assistance with medication management and complex decisions, she believes she could thrive in a less restrictive environment. An occupational therapy evaluation has been requested, which she has agreed to, along with a formal capacity evaluation by psychiatry to further assess her limitations. She was seen by psychiatry for capacity evaluation on 08/22. Patient lacks capacity to leave AGAINST MEDICAL ADVICE per psychiatry. Per psychiatry, patient cannot appreciate benefits/risks on high risk decisions, however is capable of making low risk decisions - Patient does NOT meet Section 12 criteria - Medications: - Zyprexa 5mg QAM, 10mg nightly - Depakote 1750mg at bedtime, valproic lvl 44 - Ativan 1 mg nightly - Latuda 80mg BID - Effexor 112.5mg daily - Trazodone 50mg nightly - Zyprexa 5mg BID PRN for agitation - Ativan 1 mg twice daily as needed agitation - Seroquel discontinued - Continue to monitor QTc periodically while admitted (399 on 09/06/2024) Assessment & Plan (09/10/2024 12:27 PM EST): Patient has a complex psychiatric history including PTSD, depression, and schizoaffective disorder, bipolar type. She has been a resident at [facility] since October 2020 following an anoxic brain injury and stroke due to cardiac arrest from a drug overdose (September 2020). The patient has presented to the emergency department over 20 times due to attempts to leave the facility. The events leading up to this hospitalization involved patient attempting to elope, and when staff intervened, she became aggressive and broke objects in the facility. As a result, she was placed under Section 12 and brought to the emergency room for evaluation. After assessment by [facility], she was found not to meet the criteria for Section 12. When asked about her agitation, the patient expressed dissatisfaction with her living situation. Following her clearance, Ashley Car reported to the ED case management that her needs exceeded what they could accommodate and declined to accept her back. Upon admission, the patient displayed exit-seeking behavior, agitation, and aggression. The inpatient psychiatry team was consulted, and adjustments were made to her medication regimen, including increased doses of Depakote and Zyprexa. On August 02, she was noted to be lethargic, prompting a reduction in her morning Zyprexa dose. As of August 11, she had not required restraints for over a week and was no longer on 15-minute checks. A remote video monitor had been placed outside her door due to concerns about elopement. In discussions with Roberta, she expressed frustration about being confined to nursing facilities for several years and believes she should have more freedom as a young woman. Her capacity and cognition have not been formally re-evaluated since her cardiac arrest in 2019, though she feels she has made significant progress. She acknowledges struggling with complex decision-making, requiring assistance in determining the best course of action. Her brother, Rodrigue, supports her in making most decisions but restricts her from risky choices, such as leaving against medical advice, due to concerns about a potential return to substance use. Before her stroke/cardiac arrest, Roberta lived independently in an apartment with assistance from a conservator through [facility]. Pt reported difficulties managing her frustration, particularly in environments where others escalate in response to her agitation. She attributes these episodes to restrictions on her freedom and feels unjustly confined. While she recognizes the need for assistance with medication management and complex decisions, she believes she could thrive in a less restrictive environment. An occupational therapy evaluation has been requested, which she has agreed to, along with a formal capacity evaluation by psychiatry to further assess her limitations. She was seen by psychiatry for capacity evaluation on 08/22. Patient lacks capacity to leave AGAINST MEDICAL ADVICE per psychiatry. Per psychiatry, patient cannot appreciate benefits/risks on high risk decisions, however is capable of making low risk decisions - Patient does NOT meet Section 12 criteria - Medications: - Zyprexa 5mg QAM, 10mg nightly - Depakote 1750mg at bedtime, valproic lvl 44 - Ativan 1 mg nightly - Latuda 80mg BID - Effexor 112.5mg daily - Trazodone 50mg nightly - Zyprexa 5mg BID PRN for agitation - Ativan 1 mg twice daily as needed agitation - Seroquel discontinued - Continue to monitor QTc periodically while admitted (399 on 09/06/2024) Assessment & Plan (09/09/2024 10:55 AM EST): Patient has a complex psychiatric history including PTSD, depression, and schizoaffective disorder, bipolar type. She has been a resident at [facility] since October 2020 following an anoxic brain injury and stroke due to cardiac arrest from a drug overdose (September 2020). The patient has presented to the emergency department over 20 times due to attempts to leave the facility. The events leading up to this hospitalization involved patient attempting to elope, and when staff intervened, she became aggressive and broke objects in the facility. As a result, she was placed under Section 12 and brought to the emergency room for evaluation. After assessment by [facility], she was found not to meet the criteria for Section 12. When asked about her agitation, the patient expressed dissatisfaction with her living situation. Following her clearance, Ashley Car reported to the ED case management that her needs exceeded what they could accommodate and declined to accept her back. Upon admission, the patient displayed exit-seeking behavior, agitation, and aggression. The inpatient psychiatry team was consulted, and adjustments were made to her medication regimen, including increased doses of Depakote and Zyprexa. On August 02, she was noted to be lethargic, prompting a reduction in her morning Zyprexa dose. As of August 11, she had not required restraints for over a week and was no longer on 15-minute checks. A remote video monitor had been placed outside her door due to concerns about elopement. In discussions with Roberta, she expressed frustration about being confined to nursing facilities for several years and believes she should have more freedom as a young woman. Her capacity and cognition have not been formally re-evaluated since her cardiac arrest in 2019, though she feels she has made significant progress. She acknowledges struggling with complex decision-making, requiring assistance in determining the best course of action. Her brother, Rodrigue, supports her in making most decisions but restricts her from risky choices, such as leaving against medical advice, due to concerns about a potential return to substance use. Before her stroke/cardiac arrest, Roberta lived independently in an apartment with assistance from a conservator through [facility]. Pt reported difficulties managing her frustration, particularly in environments where others escalate in response to her agitation. She attributes these episodes to restrictions on her freedom and feels unjustly confined. While she recognizes the need for assistance with medication management and complex decisions, she believes she could thrive in a less restrictive environment. An occupational therapy evaluation has been requested, which she has agreed to, along with a formal capacity evaluation by psychiatry to further assess her limitations. She was seen by psychiatry for capacity evaluation on 08/22. Patient lacks capacity to leave AGAINST MEDICAL ADVICE per psychiatry. Per psychiatry, patient cannot appreciate benefits/risks on high risk decisions, however is capable of making low risk decisions - Patient does NOT meet Section 12 criteria - Medications: - Zyprexa 5mg QAM, 10mg nightly - Depakote 1750mg at bedtime, valproic lvl 44 - Ativan 1 mg nightly - Latuda 80mg BID - Effexor 112.5mg daily - Trazodone 50mg nightly - Zyprexa 5mg BID PRN for agitation - Ativan 1 mg twice daily as needed agitation - Seroquel discontinued - Continue to monitor QTc periodically while admitted (399 on 09/06/2024) Assessment & Plan (09/02/2024 3:09 PM EST): Patient has a complex psychiatric history, including PTSD, depression, and schizoaffective disorder, bipolar type. She has been a resident at [facility] since October 2020, following an anoxic brain injury and stroke due to cardiac arrest from a drug overdose (September 2020). The patient has presented to the emergency department over 20 times due to attempts to leave the facility. The events leading up to this hospitalization involved patient attempting to elope, and when staff intervened, she became aggressive and broke objects in the facility. As a result, she was placed under Section 12 and brought to the emergency room for evaluation. After assessment by [facility], she was found not to meet the criteria for Section 12. When asked about her agitation, the patient expressed dissatisfaction with her living situation. Following her clearance, Ashley Car reported to the ED case management that her needs exceeded what they could accommodate and declined to accept her back. Upon admission, the patient displayed exit-seeking behavior, agitation, and aggression. The inpatient psychiatry team was consulted, and adjustments were made to her medication regimen, including increased doses of Depakote and Zyprexa. On August 02, she was noted to be lethargic, prompting a reduction in her morning Zyprexa dose. As of August 11, she has not required restraints for over a week and is no longer on 15-minute checks. A remote video monitor has been placed outside her door due to concerns about elopement. In discussions with Roberta, she expressed frustration about being confined to nursing facilities for several years and believes she should have more freedoms as a young woman. Her capacity and cognition have not been formally re-evaluated since her cardiac arrest in 2019, though she feels she has made significant progress. She acknowledges struggling with complex decision-making, requiring assistance in determining the best course of action. Her brother, Rodrigue, supports her in making most decisions but restricts her from risky choices, such as leaving against medical advice, due to concerns about a potential return to substance use. Before her stroke/cardiac arrest, Roberta lived independently in an apartment with assistance from a conservator through [facility]. Pt reported difficulties managing her frustration, particularly in environments where others escalate in response to her agitation. She attributes these episodes to restrictions on her freedom and feels unjustly confined. While she recognizes the need for assistance with medication management and complex decisions, she believes she could thrive in a less restrictive environment. An occupational therapy evaluation has been requested, which she has agreed to, along with a formal capacity evaluation by psychiatry to further assess her limitations. She was seen by psychiatry for capacity evaluation on 08/22. Patient lacks capacity to leave AGAINST MEDICAL ADVICE per psychiatry. Per psychiatry, patient cannot appreciate benefits/risks on high risk decisions, however is capable of making low risk decisions - Patient does NOT meet Section 12 criteria - Medications: - Zyprexa 5mg QAM, 10mg nightly - Depakote 1750mg at bedtime, valproic lvl 44 - Ativan 1 mg nightly - Latuda 80mg BID - Effexor 112.5mg daily - Trazodone 50mg nightly - Zyprexa 5mg BID PRN for agitation - Ativan 1 mg twice daily as needed agitation - Seroquel discontinued - Continue to monitor QTc periodically while admitted (463 on 08/25/24) Assessment & Plan (09/01/2024 2:00 PM EST): Patient has a complex psychiatric history, including PTSD, depression, and schizoaffective disorder, bipolar type. She has been a resident at [facility] since October 2020, following an anoxic brain injury and stroke due to cardiac arrest from a drug overdose (September 2020). The patient has presented to the emergency department over 20 times due to attempts to leave the facility. The events leading up to this hospitalization involved patient attempting to elope, and when staff intervened, she became aggressive and broke objects in the facility. As a result, she was placed under Section 12 and brought to the emergency room for evaluation. After assessment by [facility], she was found not to meet the criteria for Section 12. When asked about her agitation, the patient expressed dissatisfaction with her living situation. Following her clearance, Ashley Car reported to the ED case management that her needs exceeded what they could accommodate and declined to accept her back. Upon admission, the patient displayed exit-seeking behavior, agitation, and aggression. The inpatient psychiatry team was consulted, and adjustments were made to her medication regimen, including increased doses of Depakote and Zyprexa. On August 02, she was noted to be lethargic, prompting a reduction in her morning Zyprexa dose. As of August 11, she has not required restraints for over a week and is no longer on 15-minute checks. A remote video monitor has been placed outside her door due to concerns about elopement. In discussions with Roberta, she expressed frustration about being confined to nursing facilities for several years and believes she should have more freedoms as a young woman. Her capacity and cognition have not been formally re-evaluated since her cardiac arrest in 2019, though she feels she has made significant progress. She acknowledges struggling with complex decision-making, requiring assistance in determining the best course of action. Her brother, Rodrigue, supports her in making most decisions but restricts her from risky choices, such as leaving against medical advice, due to concerns about a potential return to substance use. Before her stroke, Roberta lived independently in an apartment with assistance from a conservator through [facility]. Pt reported difficulties managing her frustration, particularly in environments where others escalate in response to her agitation. She attributes these episodes to restrictions on her freedom and feels unjustly confined. While she recognizes the need for assistance with medication management and complex decisions, she believes she could thrive in a less restrictive environment. An occupational therapy evaluation has been requested, which she has agreed to, along with a formal capacity evaluation by psychiatry to further assess her limitations. She was seen by psychiatry for capacity evaluation on 08/22. Patient lacks capacity to leave AGAINST MEDICAL ADVICE per psychiatry. Per psychiatry, patient cannot appreciate benefits/risks on high risk decisions, however is capable of making low risk decisions - Patient does NOT meet Section 12 criteria - Medications: - Zyprexa 5mg QAM, 10mg nightly - Depakote 1750mg at bedtime, valproic lvl 44 - Ativan 1 mg nightly - Latuda 80mg BID - Effexor 112.5mg daily - Trazodone 50mg nightly - Zyprexa 5mg BID PRN for agitation - Ativan 1 mg twice daily as needed agitation - Seroquel discontinued - Continue to monitor QTc periodically while admitted (463 on 08/25/24) Assessment & Plan (08/31/2024 5:30 PM EST): Patient has a complex psychiatric history, including PTSD, depression, and schizoaffective disorder, bipolar type. She has been a resident at [facility] since October 2020, following an anoxic brain injury and stroke due to cardiac arrest from a drug overdose (September 2020). The patient has presented to the emergency department over 20 times due to attempts to leave the facility. The events leading up to this hospitalization involved patient attempting to elope, and when staff intervened, she became aggressive and broke objects in the facility. As a result, she was placed under Section 12 and brought to the emergency room for evaluation. After assessment by [facility], she was found not to meet the criteria for Section 12. When asked about her agitation, the patient expressed dissatisfaction with her living situation. Following her clearance, Ashley Car reported to the ED case management that her needs exceeded what they could accommodate and declined to accept her back. Upon admission, the patient displayed exit-seeking behavior, agitation, and aggression. The inpatient psychiatry team was consulted, and adjustments were made to her medication regimen, including increased doses of Depakote and Zyprexa. On August 02, she was noted to be lethargic, prompting a reduction in her morning Zyprexa dose. As of August 11, she has not required restraints for over a week and is no longer on 15-minute checks. A remote video monitor has been placed outside her door due to concerns about elopement. In discussions with Roberta, she expressed frustration about being confined to nursing facilities for several years and believes she should have more freedoms as a young woman. Her capacity and cognition have not been formally re-evaluated since her cardiac arrest in 2019, though she feels she has made significant progress. She acknowledges struggling with complex decision-making, requiring assistance in determining the best course of action. Her brother, Rodrigue, supports her in making most decisions but restricts her from risky choices, such as leaving against medical advice, due to concerns about a potential return to substance use. Before her stroke, Roberta lived independently in an apartment with assistance from a conservator through [facility]. Pt reported difficulties managing her frustration, particularly in environments where others escalate in response to her agitation. She attributes these episodes to restrictions on her freedom and feels unjustly confined. While she recognizes the need for assistance with medication management and complex decisions, she believes she could thrive in a less restrictive environment. An occupational therapy evaluation has been requested, which she has agreed to, along with a formal capacity evaluation by psychiatry to further assess her limitations. She was seen by psychiatry for capacity evaluation on 08/22. Patient lacks capacity to leave AGAINST MEDICAL ADVICE per psychiatry. Per psychiatry, patient cannot appreciate benefits/risks on high risk decisions, however is capable of making low risk decisions - Patient does NOT meet Section 12 criteria - Medications: - Zyprexa 5mg QAM, 10mg nightly - Depakote 1750mg at bedtime, valproic lvl 44 - Ativan 1 mg nightly - Latuda 80mg BID - Effexor 112.5mg daily - Trazodone 50mg nightly - Zyprexa 5mg BID PRN for agitation - Ativan 1 mg twice daily as needed agitation - Seroquel discontinued - Continue to monitor QTc periodically while admitted (463 on 08/25/24) Assessment & Plan (08/22/2024 11:54 AM EDT): Patient with complex psychiatric history, including PTSD, depression, as well as schizoaffective disorder, bipolar type. Patient has been a resident at [facility] since October 2020, after suffering anoxic brain injury as well as stroke in the setting of cardiac arrest due to drug overdose. Patient has presented to the ED over 20 times for evaluation in the setting of attempts to elope from [facility]. With regards to most recent presentation, patient again with attempt to elope from facility, however when staff attempted to stop her, she became aggressive and was breaking objects in the facility. She was placed under section 12 and brought to the emergency room for evaluation. Patient was seen by providers in [facility], and felt to not meet section 12 criteria; patient's chief complaint when asked about her agitation is that she does not like her facility. After patient was cleared of section 12, Ashley Car reported to EMS case management that it was felt patient's needs for greater than they could not accommodate, they declined to accept patient back. After admission, patient with exit seeking behavior and attempting to elope, with associated agitation and aggression. Inpatient psychiatry team was consulted, and medication adjustments were made (depakote and zyprexa dosing was increased). On 08/02, pt was noted to be lethargic and therefore AM zyprexa dosing was reduced. Pt has not required restraints for over 1 week as of 08/11, and she is no longer on q15 minute checks. An RVM has been placed outside of her door due to concerns for elopement. In Discussion with Roberta, she expresses frustration over being locked into nursing facilities for several years. She feels that she should be afforded more freedoms as she is a young woman. Her capacity and cognition has not been formally re- evaluated since her cardiac arrest in 2019 and she feels she has made a good recovery. Currently she notes that she can struggle between two decisions when she is not sure which is the best for her and requires assistance with complex decision making. In discussion with her Brother Rodrigue, he notes he allows her to make most decisions but not risky ones, such as discharge, because he fears she may return to drugs or alcohol. He notes prior to her stroke, Roberta lived in an apartment with a conservators assistance through [facility] before she became involved in drugs or alcohol. This was in the state of [place]. Roberta indicates she struggles when she gets really frustrated and does have difficulty calming down. This is exacerbated when she is in a facility where other people escalate in response to her frustration or aggression. These episodes she feels stem from restrictions in freedom and that she feels she is being unrightfully held against her will. While she understands she needs assistance with medication mngt and some complex decision making, she feels that she does well overall and could live in a less restrictive environment. Will request an OT evaluation, which she has agreed to as well as a formal capacity evaluation with psychiatry to further examine limitations. - Patient does NOT meet Section 12 criteria - OT eval, consult Psych for formal capacity evaluation in a psychiatrically complex patient on 08/22 - Patient has a HCP activated, she is not safe to leave the hospital AGAINST MEDICAL ADVICE - Medications: - Zyprexa 5mg QAM, 10mg nightly - Depakote 1750mg at bedtime, valproic lvl 44 - Ativan 1 mg nightly - Latuda 80mg BID - Effexor 112.5mg daily - Trazodone 50mg nightly - Zyprexa 5mg BID PRN for agitation - Ativan 1 mg twice daily as needed agitation - Seroquel discontinued - Continue to monitor QTc periodically while admitted (452 on 08/02/24) Assessment & Plan (08/21/2024 1:56 PM EDT): Patient with complex psychiatric history, including PTSD, depression, as well as schizoaffective disorder, bipolar type. Patient has been a resident at [facility] since October 2020, after suffering anoxic brain injury as well as stroke in the setting of cardiac arrest due to drug overdose. Patient has presented to the ED over 20 times for evaluation in the setting of attempts to elope from [facility]. With regards to most recent presentation, patient again with attempt to elope from facility, however when staff attempted to stop her, she became aggressive and was breaking objects in the facility. She was placed under section 12 and brought to the emergency room for evaluation. Patient was seen by providers in [facility], and felt to not meet section 12 criteria; patient's chief complaint when asked about her agitation is that she does not like her facility. After patient was cleared of section 12, Ashley Car reported to EMS case management that it was felt patient's needs for greater than they could not accommodate, they declined to accept patient back. After admission, patient with exit seeking behavior and attempting to elope, with associated agitation and aggression. Inpatient psychiatry team was consulted, and medication adjustments were made (depakote and zyprexa dosing was increased). On 08/02, pt was noted to be lethargic and therefore AM zyprexa dosing was reduced. Pt has not required restraints for over 1 week as of 08/11, and she is no longer on q15 minute checks. An RVM has been placed outside of her door due to concerns for elopement. In Discussion with Roberta, she expresses frustration over being locked into nursing facilities for several years. She feels that she should be afforded more freedoms as she is a young woman. Her capacity and cognition has not been formally re- evaluated since her cardiac arrest in 2019 and she feels she has made a good recovery. Currently she notes that she can struggle between two decisions when she is not sure which is the best for her and requires assistance with complex decision making. In discussion with her Brother Rodrigue, he notes he allows her to make most decisions but not risky ones, such as discharge, because he fears she may return to drugs or alcohol. He notes prior to her stroke, Roberta lived in an apartment with a conservators assistance through [facility] before she became involved in drugs or alcohol. This was in the state of [place]. Roberta indicates she struggles when she gets really frustrated and does have difficulty calming down. This is exacerbated when she is in a facility where other people escalate in response to her frustration or aggression. These episodes she feels stem from restrictions in freedom and that she feels she is being unrightfully held against her will. While she understands she needs assistance with medication mngt and some complex decision making, she feels that she does well overall and could live in a less restrictive environment. Will request an OT evaluation, which she has agreed to as well as a formal capacity evaluation with psychiatry to further examine limitations. - Patient does NOT meet Section 12 criteria - OT mell, d/w Psych formal capacity evaluation on 08/22 - Patient is not her own decision maker, she is not safe to leave the hospital AGAINST MEDICAL ADVICE - Medications: - Zyprexa 5mg QAM, 10mg nightly - Depakote 1750mg at bedtime, valproic lvl 44 - Ativan 1 mg nightly - Latuda 80mg BID - Effexor 112.5mg daily - Trazodone 50mg nightly - Zyprexa 5mg BID PRN for agitation - Ativan 1 mg twice daily as needed agitation - Seroquel discontinued - Continue to monitor QTc periodically while admitted (452 on 08/02/24) Assessment & Plan (08/20/2024 10:24 AM EDT): Patient with complex psychiatric history, including PTSD, depression, as well as schizoaffective disorder, bipolar type. Patient has been a resident at [facility] since October 2020, after suffering anoxic brain injury in the setting of cardiac arrest due to drug overdose. Patient has presented to the ED over 20 times for evaluation in the setting of attempts to elope from [facility]. With regards to most recent presentation, patient again with attempt to elope from facility, however when staff attempted to stop her, she became aggressive and was breaking objects in the facility. She was placed under section 12 and brought to the emergency room for evaluation. Patient was seen by providers in EM, and felt to not meet section 12 criteria; patient's chief complaint when asked about her agitation is that she does not like her facility. After patient was cleared of section 12, Ashley Car reported to EMS case management that it was felt patient's needs for greater than they could not accommodate, they declined to accept patient back. After admission, patient with exit seeking behavior and attempting to elope, with associated agitation and aggression. Inpatient psychiatry team was consulted, and medication adjustments were made (depakote and zyprexa dosing was increased). On 08/02, pt was noted to be lethargic and therefore AM zyprexa dosing was reduced. Pt has been calm and cooperative following medication changes after admission. Pt has not required restraints for over 1 week as of 08/11, and she is no longer on q15 minute checks. - Patient does NOT meet Section 12 criteria - Patient is not her own decision maker, she is not safe to leave the hospital AGAINST MEDICAL ADVICE - Medications: - Zyprexa 5mg QAM, 10mg nightly - Depakote 1750mg at bedtime, valproic lvl 44 - Ativan 1 mg nightly - Latuda 80mg BID - Effexor 112.5mg daily - Trazodone 50mg nightly - Zyprexa 5mg BID PRN for agitation - Ativan 1 mg twice daily as needed agitation - Seroquel discontinued - Continue to monitor QTc periodically while admitted (452 on 08/02/24) Assessment & Plan (08/19/2024 5:04 PM EDT): Patient with complex psychiatric history, including PTSD, depression, as well as schizoaffective disorder, bipolar type. Patient has been a resident at [facility] since October 2020, after suffering anoxic brain injury in the setting of cardiac arrest due to drug overdose. Patient has presented to the ED over 20 times for evaluation in the setting of attempts to elope from [facility]. With regards to most recent presentation, patient again with attempt to elope from facility, however when staff attempted to stop her, she became aggressive and was breaking objects in the facility. She was placed under section 12 and brought to the emergency room for evaluation. Patient was seen by providers in [facility], and felt to not meet section 12 criteria; patient's chief complaint when asked about her agitation is that she does not like her facility. After patient was cleared of section 12, Ashley Car reported to EMS case management that it was felt patient's needs for greater than they could not accommodate, they declined to accept patient back. After admission, patient with exit seeking behavior and attempting to elope, with associated agitation and aggression. Inpatient psychiatry team was consulted, and medication adjustments were made (depakote and zyprexa dosing was increased). On 08/02, pt was noted to be lethargic and therefore AM zyprexa dosing was reduced. Pt has been calm and cooperative following medication changes after admission. Pt has not required restraints for over 1 week as of 08/11, and she is no longer on q15 minute checks. - Patient does NOT meet Section 12 criteria - Patient is not her own decision maker, she is not safe to leave the hospital AGAINST MEDICAL ADVICE - Medications: - Zyprexa 5mg QAM, 10mg nightly - Depakote 1750mg at bedtime, valproic lvl 44 - Ativan 1 mg nightly - Latuda 80mg BID - Effexor 112.5mg daily - Trazodone 50mg nightly - Zyprexa 5mg BID PRN for agitation - Ativan 1 mg twice daily as needed agitation - Seroquel discontinued - Continue to monitor QTc periodically while admitted (452 on 08/02/24) Assessment & Plan (08/12/2024 10:38 AM EDT): Patient with complex psychiatric history, including PTSD, depression, as well as schizoaffective disorder, bipolar type. Patient has been a resident at [facility] since October 2020, after suffering anoxic brain injury in the setting of cardiac arrest due to drug overdose. Patient has presented to the ED over 20 times for evaluation in the setting of attempts to elope from [facility]. With regards to most recent presentation, patient again with attempt to elope from facility, however when staff attempted to stop her, she became aggressive and was breaking objects in the facility. She was placed under section 12 and brought to the emergency room for evaluation. Patient was seen by providers in [facility], and felt to not meet section 12 criteria; patient's chief complaint when asked about her agitation is that she does not like her facility. After patient was cleared of section 12, Ashley Car reported to EMS case management that it was felt patient's needs for greater than they could not accommodate, they declined to accept patient back. After admission to hospital medicine, patient with exit seeking behavior and attempting to elope, with associated agitation and aggression. Inpatient psychiatry team was consulted, and medication adjustments were made. On 08/02 after Zyprexa and Depakote increase, pt lethargic. On later evaluation, lethargy resolved, pt reports she is a heavy sleeper and this is typical for her. Pt has been calm and cooperative following medication changes after admission, no further lethargy. Earlier in admission, patient had not wanted violent restraints, however has not required restraints for over 1 week as of 08/11, and she is no longer on q15 minute checks. - Patient does NOT meet Section 12 criteria - Patient is not her own decision maker, she is not safe to leave the hospital AGAINST MEDICAL ADVICE - Medications: - Zyprexa 5mg QAM, 10mg nightly - Depakote 1750mg at bedtime, valproic lvl 44 - Ativan 1 mg nightly - Latuda 80mg BID - Effexor 112.5mg daily - Trazodone 50mg nightly - Zyprexa 5mg BID PRN for agitation - Ativan 1 mg twice daily as needed agitation - Seroquel discontinued - Continue to monitor QTc periodically while admitted (452 on 08/02/24) Assessment & Plan (08/11/2024 1:55 PM EDT): Patient with complex psychiatric history, including PTSD, depression, as well as schizoaffective disorder, bipolar type. Patient has been a resident at [facility] since October 2020, after suffering anoxic brain injury in the setting of cardiac arrest due to drug overdose. Patient has presented to the ED over 20 times for evaluation in the setting of attempts to elope from [facility]. With regards to most recent presentation, patient again with attempts to elope from facility, however when staff attempted to stop her, she became aggressive and was breaking objects in the facility. She was placed under section 12 and brought to the emergency room for evaluation. Patient was seen by providers in [facility], and felt to not meet section 12 criteria; patient's chief complaint when asked about her agitation is that she does not like her facility. After patient was cleared of section 12, ashley Car reported to EMS case management that it was felt patient's needs for greater than they could not accommodate, they declined to accept patient back. After admission to hospital medicine, patient with exit seeking behavior and attempting to elope, with associated agitation and aggression. Inpatient psychiatry team was consulted, and medication adjustments were made. On 08/02 after Zyprexa and Depakote increase, pt lethargic. On later evaluation, lethargy resolved, pt reports she is a heavy sleeper and this is typical for her. Pt has been calm and cooperative following medication changes after admission, no further lethargy. Earlier in admission, patient had not wanted violent restraints, however has not required restraints for over 1 week as of 08/11, and she is no longer on q15 minute checks. - Patient does NOT meet Section 12 criteria - Patient is not her own decision maker, she is not safe to leave the hospital AGAINST MEDICAL ADVICE - Medications: - Zyprexa 5mg QAM, 10mg nightly - Depakote 1750mg at bedtime, valproic lvl 44 - Ativan 1 mg nightly - Latuda 80mg BID - Effexor 112.5mg daily - Trazodone 50mg nightly - Zyprexa 5mg BID PRN for agitation - Ativan 1 mg twice daily as needed agitation - Seroquel discontinued - Continue to monitor QTc periodically while admitted Assessment & Plan (08/10/2024 4:12 PM EDT): Patient has a history of schizoaffective disorder and associated bipolar disorder who presented to emergency department for aggressive behavior with unclear etiology. Patient was placed under a section 12 and required emergency department presentation. She could not be sent back to her facility due to lack of staffing for 1-to-1 coverage and ongoing agitation. Medication adjustments made during admission. On 08/02 after Zyprexa and Depakote increase, pt lethargic. On later evaluation, lethargy resolved, pt reports she is a heavy sleeper and this is typical for her. Pt has been calm and cooperative following medication changes after admission, no further lethargy. Psychiatry consulted and pt evaluated with recommendations - Patient does NOT meet Section 12 criteria or inpatient psychiatric level of care. - Patient is not her own decision maker, she is not safe to leave the hospital AGAINST MEDICAL ADVICE - Medications: - Zyprexa 5mg QAM, 10mg nightly - Depakote 1750mg at bedtime, valproic lvl 44 - Ativan 1 mg nightly - Latuda 80mg BID - Effexor 112.5mg daily - Trazodone 50mg nightly - Zyprexa 5mg BID PRN for agitation - Ativan 1 mg twice daily as needed agitation - Seroquel discontinued - Pt had required violent restraints multiple times initially. Behavior has improved greatly so Q15 min checks discontinued - Continue to monitor Assessment & Plan (08/09/2024 7:03 PM EDT): Patient has a history of schizoaffective disorder and associated bipolar disorder who presented to emergency department for aggressive behavior with unclear etiology. Patient was placed under a section 12 and required emergency department presentation. She could not be sent back to her facility due to lack of staffing for 1-to-1 coverage and ongoing agitation. Medication adjustments ongoing. On 08/02 after Zyprexa and Depakote increase, pt lethargic. On later evaluation, lethargy resolved, pt reports she is a heavy sleeper and this is typical for her. Pt has been calm and cooperative following medication changes after admission, no further lethargy. Psychiatry consulted and pt evaluated with recommendations - Patient does NOT meet Section 12 criteria or inpatient psychiatric level of care. - Patient is not her own decision maker, she is not safe to leave the hospital AGAINST MEDICAL ADVICE - Medications: - Zyprexa 5mg QAM, 10mg nightly - Depakote 1750mg at bedtime, valproic lvl 44 - Ativan 1 mg nightly - Latuda 80mg BID - Effexor 112.5mg daily - Trazodone 50mg nightly - Zyprexa 5mg BID PRN for agitation - Ativan 1 mg twice daily as needed agitation - Seroquel discontinued - Pt had required violent restraints multiple times initially. Behavior has improved greatly so Q15 min checks discontinued - Continue to monitor Assessment & Plan (08/05/2024 1:07 PM EDT): Patient has a history of schizoaffective disorder and associated bipolar disorder who presented to emergency department for aggressive behavior with unclear etiology. Patient was placed under a section 12 and required emergency department presentation. She could not be sent back to her facility due to lack of staffing for 1-to-1 coverage and ongoing agitation. Medication adjustments ongoing. On 08/02 after Zyprexa and Depakote increase, pt lethargic. On later evaluation, lethargy resolved, pt reports she is a heavy sleeper and this is typical for her. Pt has been calm and cooperative following medication changes after admission, no further lethargy. - Psychiatry consult; appreciate recommendations - Patient does NOT meet Section 12 criteria or inpatient psychiatric level of care. - Patient is not her own decision maker, she is not safe to leave the hospital AGAINST MEDICAL ADVICE - Medications: - Zyprexa 5mg QAM, 10mg nightly - Depakote 1750mg at bedtime, valproic lvl 44 - Ativan 1 mg nightly - Latuda 80mg BID - Effexor 112.5mg daily - Trazodone 50mg nightly - Zyprexa 5mg BID PRN for agitation - Ativan 1 mg twice daily as needed agitation - Seroquel discontinued - Downgraded constant observation to Q15 min checks as pt has not displayed exit seeking behavior - Physical restraints as last resort. Has required violent restraints multiple times since admission but none in the last 24 hours. Assessment & Plan (08/04/2024 2:31 PM EDT): Patient has a history of schizoaffective disorder and associated bipolar disorder who presented to emergency department for aggressive behavior with unclear etiology. Patient was placed under a section 12 and required emergency department presentation. She could not be sent back to her facility due to lack of staffing for 1-to-1 coverage and ongoing agitation. Medication adjustments ongoing. On 08/02 after Zyprexa and Depakote increase, pt lethargic. On later evaluation, lethargy resolved, pt reports she is a heavy sleeper and this is typical for her. Pt has been calm and cooperative following medication changes after admission, no further lethargy. - Psychiatry consult; appreciate recommendations - Patient does NOT meet Section 12 criteria or inpatient psychiatric level of care. - Patient is not her own decision maker, she is not safe to leave the hospital AGAINST MEDICAL ADVICE - Medications: - Zyprexa 5mg QAM, 10mg nightly - Depakote 1750mg at bedtime, valproic lvl 44 - Ativan 1 mg nightly - Latuda 80mg BID - Effexor 112.5mg daily - Trazodone 50mg nightly - Zyprexa 5mg BID PRN for agitation - Ativan 1 mg twice daily as needed agitation - Seroquel discontinued - Downgraded constant observation to Q15 min checks as pt has not displayed exit seeking behavior - Physical restraints as last resort. Has required violent restraints multiple times since admission but none in the last 24 hours. Assessment & Plan (08/03/2024 12:20 PM EDT): Patient has a history of schizoaffective disorder and associated bipolar disorder who presented to emergency department for aggressive behavior with unclear etiology. Patient was placed under a section 12 and required emergency department presentation. She could not be sent back to her facility due to lack of staffing for 1-to-1 coverage and ongoing agitation. Medication adjustments ongoing. On 08/02 after Zyprexa and Depakote increase, pt lethargic. On later evaluation, lethargy resolved, pt reports she is a heavy sleeper and this is typical for her. - Psychiatry consult; appreciate recommendations - Patient does NOT meet Section 12 criteria or inpatient psychiatric level of care. - Patient is not her own decision maker, she is not safe to leave the hospital AGAINST MEDICAL ADVICE - Medication changes: - Decrease zyprexa to 5mg QAM from 10mg on 08/02 due to lethargy - Increase zyprexa to 10mg at bedtime 08/01 - Increase Depakote to 1750mg QHS and re-check trough level prior to evening dose on 08/03 - Home ativan decreased to 1 mg from 2mg and changed from daily to nightly 08/02 - Unchanged medications: - Zyprexa 5mg BID PRN for agitation - Latuda 80mg BID - Effexor 112.5mg daily - Trazodone 50mg nightly - Ativan 1 mg twice daily as needed agitation - Seroquel discontinued - Downgraded constant observation to Q15 min checks as pt has not displayed exit seeking behavior - Physical restraints as last resort. Has required violent restraints multiple times since admission but none in the last 24 hours. Assessment & Plan (08/02/2024 12:07 PM EDT): Patient has a history of schizoaffective disorder and associated bipolar disorder who presented to emergency department for aggressive behavior with unclear etiology. Patient was placed under a section 12 and required emergency department presentation. She could not be sent back to her facility due to lack of staffing for 1-to-1 coverage and ongoing agitation. Medication adjustments ongoing. On 08/02 after Zyprexa and Depakote increase, pt lethargic. On later evaluation, lethargy resolved, pt reports she is a heavy sleeper and this is typical for her. - Psychiatry consult; appreciate recommendations - Patient does NOT meet Section 12 criteria or inpatient psychiatric level of care. - Patient is not her own decision maker, she is not safe to leave the hospital AGAINST MEDICAL ADVICE - Medication changes: - Increase zyprexa to 10mg QAM and 10mg at bedtime 08/01 - Increase Depakote to 1750mg QHS and re-check trough level prior to evening dose on 08/03 - Home ativan 2mg changed from daily to nightly 08/02 - Unchanged medications: - Zyprexa 5mg BID PRN for agitation - Latuda 80mg BID - Effexor 112.5mg daily - Trazodone 50mg nightly - Ativan 1 mg twice daily as needed agitated - Seroquel discontinued - Continue constant observation with additional security for exit seeking behavior - Physical restraints as last resort. Has required violent restraints multiple times since admission but none in the last 24 hours. Type 2 diabetes mellitus with hyperglycemia 10/26 Assessment & Plan (02/27/2025 5:59 PM EDT): History of type II DM, last A1C 8.6 on 10/25/24. Patient managed on metformin in the past; no senior living insulin use per chart review. Blood sugars and serum glucose have been mostly well-controlled under 130. Discontinued FSBS checks and LDISS given excellent glycemic control. On discharge: - Continue on Metformin 1000mg twice daily - Repeat HgA1c as part of routine health maintenance per facility Assessment & Plan (02/27/2025 5:35 PM EDT): History of type II DM, last A1C 8.6 on 10/25/24 and regimen adjusted to metformin 1000mg BID. Blood sugars and serum glucose have been mostly well-controlled under 130. - Continue on Metformin 1000mg twice daily (restarted on 01/01) - Discontinued FSBS with LDISS as blood sugars have been well controlled. Assessment & Plan (02/16/2025 4:41 PM EDT): History of type II DM, last A1C 8.6 on 10/25/24 and regimen adjusted to metformin 1000mg BID. Blood sugars and serum glucose have been mostly well-controlled under 130. - Continue on Metformin 1000mg twice daily (restarted on 01/01) - Discontinued FSBS with LDISS as blood sugars have been well controlled. Assessment & Plan (02/15/2025 3:26 PM EDT): History of type II DM, last A1C 8.6 on 10/25/24 and regimen adjusted to metformin 1000mg BID. Blood sugars and serum glucose have been mostly well-controlled under 130. - Continue on Metformin 1000mg twice daily (restarted on 01/01) - Discontinued FSBS with LDISS as blood sugars have been well controlled. Assessment & Plan (02/14/2025 6:02 PM EDT): History of type II DM, last A1C 8.6 on 10/25/24 and regimen adjusted to metformin 1000mg BID. Blood sugars and serum glucose have been mostly well-controlled under 130. - Continue on Metformin 1000mg twice daily (restarted on 01/01) - Discontinued FSBS with LDISS as blood sugars have been well controlled. Assessment & Plan (02/10/2025 12:24 PM EDT): History of type II DM, last A1C 8.6 on 10/25/24 and regimen adjusted to metformin 1000mg BID. Blood sugars and serum glucose have been mostly well-controlled under 130. - Continue on Metformin 1000mg twice daily (restarted on 01/01) - Discontinued FSBS with LDISS as blood sugars have been well controlled. Assessment & Plan (02/09/2025 9:56 AM EDT): History of type II DM, last A1C 8.6 on 10/25/24 and regimen adjusted to metformin 1000mg BID. Blood sugars and serum glucose have been mostly well-controlled under 130. - Continue on Metformin 1000mg twice daily (restarted on 01/01) - Discontinued FSBS with LDISS as blood sugars have been well controlled. Assessment & Plan (02/04/2025 11:57 AM EDT): History of type II DM, last A1C 8.6 on 10/25/24 and regimen adjusted to metformin 1000mg BID. Blood sugars and serum glucose have been mostly well-controlled under 130. - Continue on Metformin 1000mg twice daily (restarted on 01/01) - Discontinued FSBS with LDISS as blood sugars have been well controlled. Assessment & Plan (02/01/2025 4:26 PM EDT): History of type II DM, last A1C 8.6 on 10/25/24 and regimen adjusted to metformin 1000mg BID. Blood sugars and serum glucose have been mostly well-controlled under 130. - Continue on Metformin 1000 mg twice daily (restarted on 01/01) - Discontinued FSBS with LDISS as blood sugars have been well controlled Assessment & Plan (01/31/2025 11:43 AM EDT): History of type II DM, last A1C 8.6 on 10/25/24 and regimen adjusted to metformin 1000mg BID. Blood sugars and serum glucose have been mostly well-controlled under 130. - Continue on Metformin 1000 mg twice daily (restarted on 01/01) - Discontinued FSBS with LDISS as blood sugars have been well controlled Assessment & Plan (01/30/2025 5:00 PM EDT): History of type II DM, last A1C 8.6 on 10/25/24 and regimen adjusted to metformin 1000mg BID. Blood sugars and serum glucose have been mostly well-controlled under 130. - Continue on Metformin 1000 mg twice daily (restarted on 01/01) - Discontinued FSBS with LDISS as blood sugars have been well controlled Assessment & Plan (01/08/2025 10:31 AM EDT): History of type II DM, last A1C 8.6 on 10/25/24 and regimen adjusted to metformin 1000mg BID. Blood sugars and serum glucose have been mostly well-controlled under 130. - Metformin 1000 mg twice daily restarted on 01/01 - Discontinued LDISS and has been doing well - Reduced FSBS2 twice daily before breakfast and dinner Assessment & Plan (01/07/2025 12:00 PM EDT): History of type II DM, last A1C 8.6 on 10/25/24 and regimen adjusted to metformin 1000mg BID. Blood sugars and serum glucose have been mostly well-controlled under 130. - Metformin 1000 mg twice daily restarted on 01/01 - Discontinued LDISS and has been doing well - Reduced FSBS2 twice daily before breakfast and dinner Assessment & Plan (01/06/2025 2:03 AM EDT): History of type II DM, last A1C 8.6 on 10/25/24 and regimen adjusted to metformin 1000mg BID. Blood sugars and serum glucose have been mostly well-controlled under 130. - Metformin 1000 mg twice daily restarted on 01/01 - Discontinued LDISS and has been doing well - Reduced FSBS2 twice daily before breakfast and dinner Assessment & Plan (12/30/2024 2:21 PM EST): Fingerstick blood sugar and serum glucose have been mostly well-controlled and under 130. - Continue metformin 1000 mg twice daily Assessment & Plan (12/23/2024 11:46 AM EST): - Continue metformin 1000 mg twice daily Assessment & Plan (12/18/2024 3:41 PM EST): Patient with history of DM2. A1C of 8.6% (09/2024). Prior to admission, was managed on Metformin 500 mg twice daily. Increased to 1000mg BID on 10/25 in setting of hyperglycemia. Blood sugars more controlled now, 100-160's. -Continue on metformin 1000 mg twice daily -Blood sugars well controlled, LDSS discontinued at this time since she is not requiring insulin. -Changed to regular diet since blood sugars had dropped to 60-70s. Assessment & Plan (12/13/2024 4:20 PM EST): Patient with history of DM2. A1C of 8.6% (09/2024). Prior to admission, was managed on Metformin 500 mg twice daily. Increased to 1000mg BID on 10/25 in setting of hyperglycemia. Blood sugars more controlled now, 100-160's. -Cont metformin 1000mg twice daily -Blood sugars well controlled, LDSS discontinued at this time since she is not requiring insulin. -Liberated to regular diet since blood sugars in 60-70s. Asymptomatic. Assessment & Plan (12/12/2024 5:04 PM EST): Patient with history of DM2. A1C of 8.6% (09/2024). Prior to admission, was managed on Metformin 500 mg twice daily. Increased to 1000mg BID on 10/25 in setting of hyperglycemia. Blood sugars more controlled now, 100-160's. -Cont metformin 1000mg twice daily -Blood sugars well controlled, LDSS discontinued at this time since she is not requiring insulin. -Liberated to regular diet since blood sugars in 60-70s. Asymptomatic. Assessment & Plan (12/11/2024 2:18 PM EST): Patient with history of DM2. A1C of 8.6% (09/2024). Prior to admission, was managed on Metformin 500 mg twice daily. Increased to 1000mg BID on 10/25 in setting of hyperglycemia. Blood sugars more controlled now, 100-160's. -Cont metformin 1000mg twice daily -Blood sugars well controlled, LDSS discontinued at this time since she is not requiring insulin. -Liberated to regular diet since blood sugars in 60-70s. Asymptomatic. Assessment & Plan (12/10/2024 5:07 PM EST): Patient with history of DM2. A1C of 8.6% (09/2024). Prior to admission, was managed on Metformin 500 mg twice daily. Increased to 1000mg BID on 10/25 in setting of hyperglycemia. Blood sugars more controlled now, 100-160's. -Cont metformin 1000mg twice daily -Blood sugars well controlled, LDSS discontinued at this time since she is not requiring insulin. -Liberated to regular diet since blood sugars in 60-70s. Asymptomatic. Assessment & Plan (12/06/2024 4:38 PM EST): Patient with history of DM2. A1C of 8.6% (09/2024). Prior to admission, was managed on Metformin 500 mg twice daily. Increased to 1000mg BID on 10/25 in setting of hyperglycemia. Blood sugars more controlled now, 100-160's. -Cont metformin 1000mg twice daily -Blood sugars well controlled, LDSS discontinued at this time since she is not requiring insulin. -Liberated to regular diet since blood sugars in 60-70s. Asymptomatic. Assessment & Plan (12/02/2024 11:15 AM EST): Patient with history of DM2. A1C of 8.6% (09/2024). Prior to admission, was managed on Metformin 500 mg twice daily. Increased to 1000mg BID on 10/25 in setting of hyperglycemia. Blood sugars more controlled now, 100-160's. - Cont metformin 1000mg twice daily - FSBS qAC and HS with insulin LDISS - Diabetic diet Assessment & Plan (12/01/2024 2:09 PM EST): Patient with history of DM2. A1C of 8.6% (09/2024). Prior to admission, was managed on Metformin 500 mg twice daily. Increased to 1000mg BID on 10/25 in setting of hyperglycemia. Blood sugars more controlled now, 100-160's. - Cont metformin 1000mg twice daily - FSBS qAC and HS with insulin LDISS - Diabetic diet Assessment & Plan (11/30/2024 3:52 PM EST): Patient with history of DM2. A1C of 8.6% (09/2024). Prior to admission, was managed on Metformin 500 mg twice daily. Increased to 1000mg BID on 10/25 in setting of hyperglycemia. Blood sugars more controlled now, 100-160's. - Cont metformin 1000mg twice daily - FSBS qAC and HS with insulin LDISS - Diabetic diet Assessment & Plan (11/29/2024 10:52 AM EST): Patient with history of DM2. A1C of 8.6% (09/2024). Prior to admission, was managed on Metformin 500 mg twice daily. Increased to 1000mg BID on 10/25 in setting of hyperglycemia. Blood sugars more controlled now, 100-160's. - Cont metformin 1000mg twice daily - FSBS qAC and HS with insulin LDISS - Diabetic diet Assessment & Plan (11/28/2024 10:13 AM EST): Patient with history of DM2. A1C of 8.6% (09/2024). Prior to admission, was managed on Metformin 500 mg twice daily. Increased to 1000mg BID on 10/25 in setting of hyperglycemia. Blood sugars more controlled now, 100-160's. - Cont metformin 1000mg twice daily - FSBS qAC and HS with insulin LDISS - Diabetic diet Assessment & Plan (11/27/2024 10:04 AM EST): Patient with history of DM2. A1C of 8.6% (09/2024). Prior to admission, was managed on Metformin 500 mg twice daily. Increased to 1000mg BID on 10/25 in setting of hyperglycemia. Blood sugars more controlled now, 100-160's. - Cont metformin 1000mg twice daily - FSBS qAC and HS with insulin LDISS - Diabetic diet Assessment & Plan (11/26/2024 11:05 AM EST): Patient with history of DM2. A1C of 8.6% (09/2024). Prior to admission, was managed on Metformin 500 mg twice daily. Increased to 1000mg BID on 10/25 in setting of hyperglycemia. Blood sugars more controlled now, 100-160's. - Cont metformin 1000mg twice daily - FSBS qAC and HS with insulin LDISS - Diabetic diet Assessment & Plan (11/25/2024 12:51 PM EST): Patient with history of DM2. A1C of 8.6% (09/2024). Prior to admission, was managed on Metformin 500 mg twice daily. Increased to 1000mg BID on 10/25 in setting of hyperglycemia. Blood sugars more controlled now, 100-160's. - Cont metformin 1000mg twice daily - FSBS qAC and HS with insulin LDISS - Diabetic diet Assessment & Plan (11/24/2024 11:53 AM EST): Patient with history of DM2. A1C of 8.6% (09/2024). Prior to admission, was managed on Metformin 500 mg twice daily. Increased to 1000mg BID on 10/25 in setting of hyperglycemia. Blood sugars more controlled now, 100-160's. - Cont metformin 1000mg twice daily - FSBS qAC and HS with insulin LDISS - Diabetic diet Assessment & Plan (11/23/2024 2:20 PM EST): Patient with history of DM2. A1C of 8.6% (09/2024). Prior to admission, was managed on Metformin 500 mg twice daily. Increased to 1000mg BID on 10/25 in setting of hyperglycemia. Blood sugars more controlled now, 100-160's. - Cont metformin 1000mg twice daily - FSBS qAC and HS with insulin LDISS - Diabetic diet Assessment & Plan (11/16/2024 2:26 PM EST): Patient with history of DM2. A1C of 8.6% (09/2024). Prior to admission, was managed on Metformin 500 mg twice daily. Increased to 1000mg BID on 10/25 in setting of hyperglycemia. Blood sugars more controlled now, 100-160's. - Cont metformin 1000mg twice daily - FSBS qAC and HS with insulin LDISS - Diabetic diet Assessment & Plan (11/06/2024 2:12 PM EST): Patient with history of type two diabetes. A1C of 8.6% (09/2024). Prior to admission, was managed on Metformin 500 mg twice daily. - Cont metformin 1000mg twice daily (increased 10/25) - Diabetic diet and encouraged compliance - FSBS qAC and HS and resume LDISS - Trend blood sugars and adjust regimen accordingly Assessment & Plan (11/05/2024 11:29 AM EST): Patient with history of type two diabetes. A1C of 8.6% (09/2024). Prior to admission, was managed on Metformin 500 mg twice daily. - Cont metformin 1000mg twice daily (increased 10/25) - Diabetic diet and encouraged compliance - FSBS qAC and HS and resume LDISS - Trend blood sugars and adjust regimen accordingly Assessment & Plan (11/04/2024 10:11 AM EST): Patient with history of type two diabetes. A1C of 8.6% (09/2024). Prior to admission, was managed on Metformin 500 mg twice daily. - Cont metformin 1000mg twice daily (increased 10/25) - Switch to diabetic diet and encourage compliance - FSBS qAC and HS and resume LDISS - Trend blood sugars and adjust regimen accordingly Assessment & Plan (11/03/2024 10:30 AM EST): Patient with history of type two diabetes. A1C of 8.6% (09/2024). Prior to admission, was managed on Metformin 500 mg twice daily. - Cont metformin 1000mg twice daily (increased 10/25) - Switch to diabetic diet and encourage compliance - FSBS qAC and HS and resume LDISS - Trend blood sugars and adjust regimen accordingly Assessment & Plan (10/24/2024 2:19 PM EST): Hx of DM on Metformin. HgbA1C 6.4 03/14/2024. Blood sugars during admission were initially well-controlled under 150, but have been trending over 200s since 10/03. Was initially FSBS checks and LDISS, but that was DC'd. May need to restart pending repeat hemoglobin A1c. -Continue on home metformin -Patient had been on a diabetic diet, however this was changed to regular on 08/26, may need to change back pending hemoglobin A1c results -Consider restarting FSBS checks and LDISS pending follow-up on hemoglobin A1c Assessment & Plan (10/23/2024 11:07 AM EST): Hx of DM on Metformin. HgbA1C 6.4 03/14/2024. Blood sugars have been well controlled this admission, with readings consistently <150. Given consistent FSBS trends, LDISS and FSBS checks dc'ed on 08/10/2024. -Continue on home metformin -Patient had been on a diabetic diet, however this was changed to regular on 08/26 -monitor glucose qweekly on Mondays. Assessment & Plan (10/08/2024 3:34 PM EST): Hx of DM on Metformin. HgbA1C 6.4 03/14/2024. Blood sugars have been well controlled this admission, with readings consistently <150. Given consistent FSBS trends, LDISS and FSBS checks dc'ed on 08/10/2024. -Continue on home metformin -Patient had been on a diabetic diet, however this was changed to regular on 08/26 -monitor glucose qweekly on Mondays. Assessment & Plan (09/30/2024 4:48 PM EST): Pt has a hx of DM and has been on Metformin. Last reported A1C of 6.4 on 03/14/2024. Blood sugars have been well controlled this admission, with readings consistently <150. Given consistent FSBS trends, LDISS and FSBS checks dc'ed on 08/10/2024. -Continue on home metformin -Patient had been on a diabetic diet, however this was changed to regular on 08/26 -monitor glucose qweekly on Mondays. Glucose was 178 on 09/26, however labs were drawn at 17:00. Assessment & Plan (09/29/2024 1:51 PM EST): Pt has a hx of DM and has been on Metformin. Last reported A1C of 6.4 on 03/14/2024. Blood sugars have been well controlled this admission, with readings consistently <150. Given consistent FSBS trends, LDISS and FSBS checks dc'ed on 08/10/2024. -Continue on home metformin -Patient had been on a diabetic diet, however this was changed to regular on 08/26 -monitor glucose qweekly on Mondays. Glucose was 178 on 09/26, however labs were drawn at 17:00. Assessment & Plan (09/28/2024 2:31 PM EST): Pt has a hx of DM and has been on Metformin. Last reported A1C of 6.4 on 03/14/2024. Blood sugars have been well controlled this admission, with readings consistently <150. Given consistent FSBS trends, LDISS and FSBS checks dc'ed on 08/10/2024. -Continue on home metformin -Patient had been on a diabetic diet, however this was changed to regular on 08/26 -monitor glucose qweekly on Mondays. Glucose was 178 on 09/26, however labs were drawn at 17:00. Assessment & Plan (09/11/2024 11:00 AM EST): Pt has a hx of DM and has been on Metformin. Last reported A1C of 6.4 on 03/14/2024. Blood sugars have been well controlled this admission, with readings consistently <150. Given consistent FSBS trends, LDISS and FSBS checks dc'ed on 08/10/2024. -Continue on home metformin -Patient had been on a diabetic diet, however this was changed to regular on 08/26 -monitor glucose qweekly on [facility] Assessment & Plan (09/10/2024 12:27 PM EST): Pt has a hx of DM and has been on Metformin. Last reported A1C of 6.4 on 03/14/2024. Blood sugars have been well controlled this admission, with readings consistently <150. Given consistent FSBS trends, LDISS and FSBS checks dc'ed on 08/10/2024. -Continue on home metformin -Patient had been on a diabetic diet, however this was changed to regular on 08/26 -monitor glucose qweekly on [facility] Assessment & Plan (09/09/2024 10:55 AM EST): Pt has a hx of DM and has been on Metformin. Last reported A1C of 6.4 on 03/14/2024. Blood sugars have been well controlled this admission, with readings consistently <150. Given consistent FSBS trends, LDISS and FSBS checks dc'ed on 08/10/2024. -Continue on home metformin -Patient had been on a diabetic diet, however this was changed to regular on 08/26 -monitor glucose qweekly on [facility] Assessment & Plan (09/02/2024 3:09 PM EST): Pt has a hx of DM and has been on Metformin. Last reported A1C of 6.4 on 03/14/2024. Blood sugars have been well controlled this admission, with readings consistently <150. Given consistent FSBS trends, LDISS and FSBS checks dc'ed on 08/10/2024. -Continue on home metformin -Patient had been on a diabetic diet, however this was changed to regular on 08/26 -If serum glucose elevated on 09/05 labs, will need to consider carbohydrate consistent diet Assessment & Plan (09/01/2024 2:00 PM EST): Pt has a hx of DM and has been on Metformin. Last reported A1C of 6.4 on 03/14/2024. Blood sugars have been well controlled this admission, with readings consistently <150. Given consistent FSBS trends, LDISS and FSBS checks dc'ed on 08/10/2024. -Continue on home metformin -Diabetic diet with 75 g daily carbohydrate restriction Assessment & Plan (08/31/2024 5:30 PM EST): Pt has a hx of DM and has been on Metformin. Last reported A1C of 6.4 on 03/14/2024. Blood sugars have been well controlled this admission, with readings consistently <150. Given consistent FSBS trends, LDISS and FSBS checks dc'ed on 08/10/2024. -Continue on home metformin -Diabetic diet with 75 g daily carbohydrate restriction Assessment & Plan (08/22/2024 11:55 AM EDT): Pt has a hx of DM and has been on Metformin. Last reported A1C of 6.4 on 03/14/2024. Blood sugars have been well controlled this admission, with readings consistently <150. Given consistent FSBS trends, LDISS and FSBS checks dc'ed on 08/10/2024. -Continue on home metformin -Diabetic diet with 75 g daily carbohydrate restriction Assessment & Plan (08/21/2024 1:56 PM EDT): Pt has a hx of DM and has been on Metformin. Last reported A1C of 6.4 on 03/14/2024. Blood sugars have been well controlled this admission, with readings consistently <150. Given consistent FSBS trends, LDISS and FSBS checks dc'ed on 08/10/2024. -Continue on home metformin -Diabetic diet with 75 g daily carbohydrate restriction Assessment & Plan (08/20/2024 10:25 AM EDT): Pt has a hx of DM and has been on Metformin. Last reported A1C of 6.4 on 03/14/2024. Blood sugars have been well controlled this admission, with readings consistently <150. Given consistent FSBS trends, LDISS and FSBS checks dc'ed on 08/10/2024. -Continue on home metformin -Diabetic diet with 75 g daily carbohydrate restriction Assessment & Plan (08/13/2024 12:04 PM EDT): Pt has a hx of DM and has been on Metformin. Last reported A1C of 6.4 on 03/14/2024. Blood sugars have been well controlled this admission, with readings consistently <150. Given consistent FSBS trends, LDISS and FSBS checks dc'ed on 08/10/2024. -Continue on home metformin -Diabetic diet with 75 g daily carbohydrate restriction Assessment & Plan (08/12/2024 10:12 AM EDT): Pt has a hx of DM and has been on Metformin. Last reported A1C of 6.4 on 03/14/2024. Blood sugars have been well controlled this admission, with readings consistently <150. Given consistent FSBS trends, LDISS and FSBS checks dc'ed on 08/10/2024. -Continue on home metformin -Diabetic diet with 75 g daily carbohydrate restriction Assessment & Plan (08/11/2024 1:55 PM EDT): Pt has a hx of DM and has been on Metformin. Last reported A1C of 6.4 on 03/14/2024. Blood sugars have been well controlled this admission, with readings consistently <150. Given consistent FSBS trends, LDISS and FSBS checks dc'ed on 08/10/2024. -Continue on home metformin -Diabetic diet with 75 g daily carbohydrate restriction Assessment & Plan (08/10/2024 4:12 PM EDT): Pt has a hx of DM and has been on Metformin. Last reported A1C of 6.4 on 03/14/2024. Blood sugars have been well controlled this admission. Given consistent FSBS trends, LDISS and FSBS checks wv'ed on 08/10/2024. Continue on home metformin Assessment & Plan (08/09/2024 7:03 PM EDT): Pt has a hx of DM and has been on Metformin. Last reported A1C of 6.4 on 03/14/2024. Monitor FSBS with Lispro low dose sliding scale coverage per protocol Continue on home metformin Assessment & Plan (08/05/2024 1:07 PM EDT): Last reported A1C of 6.4 on 03/14/2024. Patient is chronically on metformin in the outpatient setting and no longer has a PEG tube; she is able to tolerate oral feeds. - low dose sliding scale - Resume home metformin - Hypoglycemic protocol in place Assessment & Plan (08/04/2024 2:31 PM EDT): Last reported A1C of 6.4 on 03/14/2024. Patient is chronically on metformin in the outpatient setting and no longer has a PEG tube; she is able to tolerate oral feeds. - low dose sliding scale - Resume home metformin - Hypoglycemic protocol in place Assessment & Plan (08/03/2024 12:20 PM EDT): Last reported A1C of 6.4 on 03/14/2024. Patient is chronically on metformin in the outpatient setting and no longer has a PEG tube; she is able to tolerate oral feeds. - low dose sliding scale - Resume home metformin - Hypoglycemic protocol in place Assessment & Plan (08/02/2024 11:07 AM EDT): Last reported A1C of 6.4 on 03/14/2024. Patient is chronically on metformin in the outpatient setting and no longer has a PEG tube; she is able to tolerate oral feeds. - low dose sliding scale - Resume home metformin - Hypoglycemic protocol in place Morbid obesity with BMI of 45.0-49.9, adult 07/0 06/2023 Assessment & Plan (02/27/2025 6:00 PM EDT): Patient with BMI of 47. Encourage activity out of bed, monitor weight, and consult RD as needed. Assessment & Plan (02/27/2025 5:35 PM EDT): Patient with BMI of 47. Encourage activity out of bed, monitor weight, and consult RD as needed. Assessment & Plan (02/16/2025 4:41 PM EDT): Patient with BMI of 47. Encourage activity out of bed,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 Tracheostomy and PEG placement required in the immediate period after overdose, and both of which have since been removed/decannulated. 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 Tracheostomy and PEG placement required in the immediate period after overdose, and both of which have since been removed/decannulated. 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 Tracheostomy and PEG placement required in the immediate period after overdose, and both of which have since been removed/decannulated. 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 Tracheostomy and PEG placement required in the immediate period after overdose, and both of which have since been removed/decannulated. Overall independent with all ADLS, but requires additional assistance with medication management -Patient does not have capacity to leave AMA; and HCP has been invoked (brother) -Accepted by [facility] bed placement. 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 Tracheostomy and PEG placement required in the immediate period after overdose, and both of which have since been removed/decannulated. Overall independent with all ADLS, but requires additional assistance with medication management. 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 Tracheostomy and PEG placement required in the immediate period after overdose, and both of which have since been removed/decannulated. Overall independent with all ADLS, but requires additional assistance with medication management. 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 Tracheostomy and PEG placement required in the immediate period after overdose, and both of which have since been removed/decannulated. Overall independent with all ADLS, but requires additional assistance with medication management. 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 Tracheostomy and PEG placement required in the immediate period after overdose, and both of which have since been removed/decannulated. Overall independent with all ADLS, but requires additional assistance with medication management. 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 Tracheostomy and PEG placement required in the immediate period after overdose, and both of which have since been removed/decannulated. Overall independent with all ADLS, but requires additional assistance with medication management. 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 Tracheostomy and PEG placement required in the immediate period after overdose, and both of which have since been removed/decannulated. Overall independent with all ADLS, but requires additional assistance with medication management. 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 Tracheostomy and PEG placement required in the immediate period after overdose, and both of which have since been removed/decannulated. Overall independent with all ADLS, but requires additional assistance with medication management. 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 Tracheostomy and PEG placement required in the immediate period after overdose, and both of which have since been removed/decannulated. Overall independent with all ADLS, but requires additional assistance with medication management. 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 Tracheostomy and PEG placement required in the immediate period after overdose, and both of which have since been removed/decannulated. Overall independent with all ADLS, but requires additional assistance with medication management. 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 Tracheostomy and PEG placement required in the immediate period after overdose, and both of which have since been removed/decannulated. Overall independent with all ADLS, but requires additional assistance with medication management. 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 Tracheostomy and PEG placement required in the immediate period after overdose, and both of which have since been removed/decannulated. Overall independent with all ADLS, but requires additional assistance with medication management. 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 Tracheostomy and PEG placement required in the immediate period after overdose, and both of which have since been removed/decannulated. Overall independent with all ADLS, but requires additional assistance with medication management. 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 Tracheostomy and PEG placement required in the immediate period after overdose, and both of which have since been removed/decannulated. Overall independent with all ADLS, but requires additional assistance with medication management. 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 Tracheostomy and PEG placement required in the immediate period after overdose, and both of which have since been removed/decannulated. Overall independent with all ADLS, but requires additional assistance with medication management. 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 Tracheostomy and PEG placement required in the immediate period after overdose, and both of which have since been removed/decannulated. Overall independent with all ADLS, but requires additional assistance with medication management. 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 Tracheostomy and PEG placement required in the immediate period after overdose, and both of which have since been removed/decannulated. Overall independent with all ADLS, but requires additional assistance with medication management. 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 Tracheostomy and PEG placement required in the immediate period after overdose, and both of which have since been removed/decannulated. 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 Tracheostomy and PEG placement required in the immediate period after overdose, and both of which have since been removed/decannulated. 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 Tracheostomy and PEG placement required in the immediate period after overdose, and both of which have since been removed/decannulated. Overall independent with all ADLS. Requires management of her medications. 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 Tracheostomy and PEG placement required in the immediate period after overdose, and both of which have since been removed/decannulated. Overall independent with all ADLS. Requires management of her medications. 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 Tracheostomy and PEG placement required in the immediate period after overdose, and both of which have since been removed/decannulated. Overall independent with all ADLS. Requires management of her medications. 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 Tracheostomy and PEG placement required in the immediate period after overdose, and both of which have since been removed/decannulated. Overall independent with all ADLS. Requires management of her medications. 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 Tracheostomy and PEG placement required in the immediate period after overdose, and both of which have since been removed/decannulated. Overall independent with all ADLS. Requires management of her medications. Patient does not have capacity to leave AMA; and HCP has been invoked. 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 Tracheostomy and PEG placement required in the immediate period after overdose, and both of which have since been removed/decannulated. Overall independent with all ADLS. Requires management of her medications. Patient does not have capacity to leave AMA; HCP is invoked. 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 Tracheostomy and PEG placement required in the immediate period after overdose, and both of which have since been removed/decannulated. Overall independent with all ADLS. Requires management of her medications. Patient does not have capacity to leave AMA; HCP is invoked. 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 Tracheostomy and PEG placement required in the immediate period after overdose, and both of which have since been removed/decannulated. Overall independent with all ADLS. Requires management of her medications. Patient does not have capacity to leave AMA; HCP is invoked. 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 Tracheostomy and PEG placement required in the immediate period after overdose, and both of which have since been removed/decannulated. Overall independent with all ADLS. Requires management of her medications. Patient does not have capacity to leave AMA; HCP is invoked. 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 Tracheostomy and PEG placement required in the immediate period after overdose, and both of which have since been removed/decannulated. Overall independent with all ADLS. Requires management of her medications. Patient does not have capacity to leave AMA; HCP is invoked. 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 Tracheostomy and PEG placement required in the immediate period after overdose, and both of which have since been removed/decannulated. Overall independent with all ADLS. Requires management of her medications but otherwise independent. Patient does not have capacity to leave AMA -HCP invoked. 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 Tracheostomy and PEG placement required in the immediate period after overdose, and both of which have since been removed/decannulated. Overall independent with all ADLS. Requires management of her medications but otherwise independent. Patient does not have capacity to leave AMA -HCP invoked. 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 Tracheostomy and PEG placement required in the immediate period after overdose, and both of which have since been removed/decannulated. Overall independent with all ADLS. Requires management of her medications but otherwise independent. Patient does not have capacity to leave AMA -HCP invoked. 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 Tracheostomy and PEG placement required in the immediate period after overdose, and both of which have since been removed/decannulated. Overall independent with all ADLS. Requires management of her medications but otherwise independent. Patient does not have capacity to leave AMA -HCP invoked. 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 Tracheostomy and PEG placement required in the immediate period after overdose, and both of which have since been removed/decannulated. Overall independent with all ADLS. Requires medication mngt but otherwise independent. -HCP invoked. 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 Tracheostomy and PEG placement required in the immediate period after overdose, and both of which have since been removed/decannulated. Overall independent with all ADLS. Requires medication mngt but otherwise independent. -HCP invoked. 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 Tracheostomy and PEG placement required in the immediate period after overdose, and both of which have since been removed/decannulated. -HCP invoked. 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 Tracheostomy and PEG placement required in the immediate period after overdose, and both of which have since been removed/decannulated. -HCP invoked. 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 Tracheostomy and PEG placement required in the immediate period after overdose, and both of which have since been removed/decannulated. -HCP invoked. 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 Tracheostomy and PEG placement required in the immediate period after overdose, and both of which have since been removed/decannulated. Pt is status post tracheostomy as of September 2020 and also had a PEG tube -HCP invoked. 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 Remains stable. HCP invoked. 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 Assessment & Plan (10/10/2021 6:22 PM EST): Patient has a history of anoxic brain injury secondary to substance abuse and resulting overdose leading to cardiac arrest. Patient is status post tracheostomy placement on 09/2020 and PEG tube placement. No longer has PEG tube and tolerates a diet. No resp distress - no active issues Depression 10/09/2021 Assessment & Plan (12/14/2024 3:32 PM EST): Home medication: venlafaxine 112.5 mg daily - Continue same home medication as prescribed Assessment & Plan (12/13/2024 4:20 PM EST): Home medication: venlafaxine 112.5 mg daily - Continue home medication as prescribed Assessment & Plan (12/12/2024 5:04 PM EST): Home medication: venlafaxine 112.5 mg daily - Continue home medication as prescribed Assessment & Plan (12/11/2024 2:18 PM EST): Home medication: venlafaxine 112.5 mg daily - Continue home medication as prescribed Assessment & Plan (12/10/2024 5:07 PM EST): Home medication: venlafaxine 112.5 mg daily - Continue home medication as prescribed Assessment & Plan (12/03/2024 2:46 PM EST): Home medication: venlafaxine 112.5 mg daily - Continue home medication as prescribed Assessment & Plan (12/02/2024 11:15 AM EST): Home medication: venlafaxine 112.5 mg daily - Continue home medication as prescribed Assessment & Plan (12/01/2024 2:09 PM EST): Home medication: venlafaxine 112.5 mg daily - Continue home medication as prescribed Assessment & Plan (11/30/2024 3:43 PM EST): Home medication: venlafaxine 112.5 mg daily - Continue home medication as prescribed Assessment & Plan (11/29/2024 10:52 AM EST): Home medication: venlafaxine 112.5 mg daily - Continue home medication as prescribed Assessment & Plan (11/28/2024 10:13 AM EST): Home medication: venlafaxine 112.5 mg daily - Continue home medication as prescribed Assessment & Plan (11/27/2024 10:04 AM EST): Home medication: venlafaxine 112.5 mg daily - Continue home medication as prescribed Assessment & Plan (11/26/2024 11:05 AM EST): Home medication: venlafaxine 112.5 mg daily - Continue home medication as prescribed Assessment & Plan (11/25/2024 12:51 PM EST): Home medication: venlafaxine 112.5 mg daily - Continue home medication as prescribed Assessment & Plan (11/24/2024 11:52 AM EST): Home medication: venlafaxine 112.5 mg daily - Continue home medication as prescribed Assessment & Plan (11/23/2024 2:19 PM EST): Home medication: venlafaxine 112.5 mg daily - Continue home medication as prescribed Assessment & Plan (11/16/2024 2:24 PM EST): Home medication: venlafaxine 112.5 mg daily - Continue home medication as prescribed Assessment & Plan (11/06/2024 2:12 PM EST): Continue on home Effexor 112.5 mg daily Assessment & Plan (11/05/2024 11:29 AM EST): Continue on home Effexor 112.5 mg daily Assessment & Plan (11/04/2024 10:11 AM EST): Continue on home Effexor 112.5 mg daily Assessment & Plan (11/03/2024 10:30 AM EST): Continue on home Effexor 112.5 mg daily Assessment & Plan (10/24/2024 2:17 PM EST): Continue on home Effexor 112.5 mg daily Assessment & Plan (10/23/2024 11:07 AM EST): Continue on home Effexor 112.5 mg daily Assessment & Plan (10/14/2024 5:10 PM EST): Continue on home Effexor 112.5 mg daily Assessment & Plan (09/30/2024 4:48 PM EST): - Continue on home Effexor 112.5 mg daily. Assessment & Plan (09/29/2024 1:51 PM EST): - Continue on home Effexor 112.5 mg daily. Assessment & Plan (09/28/2024 2:31 PM EST): - Continue on home Effexor 112.5 mg daily. Assessment & Plan (09/11/2024 11:00 AM EST): - Continue on home Effexor 112.5 mg daily. Assessment & Plan (09/10/2024 12:27 PM EST): - Continue on home Effexor 112.5 mg daily. Assessment & Plan (09/09/2024 10:55 AM EST): - Continue on home Effexor 112.5 mg daily. Assessment & Plan (09/02/2024 3:09 PM EST): Continue on home Effexor 112.5 mg daily. Assessment & Plan (09/01/2024 2:00 PM EST): Continue on home Effexor 112.5 mg daily. Assessment & Plan (08/31/2024 5:30 PM EST): Continue on home Effexor 112.5 mg daily. Assessment & Plan (08/22/2024 11:55 AM EDT): Continue on home Effexor 112.5 mg daily. Assessment & Plan (08/21/2024 1:57 PM EDT): Continue on home Effexor 112.5 mg daily. Assessment & Plan (08/20/2024 10:25 AM EDT): Continue on home Effexor 112.5 mg daily. Assessment & Plan (08/13/2024 11:57 AM EDT): Continue on home Effexor 112.5 mg daily. Assessment & Plan (08/12/2024 10:12 AM EDT): Continue on home Effexor 112.5 mg daily. Assessment & Plan (08/11/2024 1:55 PM EDT): Continue on home Effexor 112.5 mg daily. Assessment & Plan (08/10/2024 4:12 PM EDT): Continue on home Effexor. Assessment & Plan (08/09/2024 7:03 PM EDT): Continue on home Effexor Assessment & Plan (08/05/2024 1:07 PM EDT): - See above Assessment & Plan (08/04/2024 2:31 PM EDT): - See above Assessment & Plan (08/03/2024 12:20 PM EDT): - See above Assessment & Plan (08/02/2024 11:07 AM EDT): - See above Tracheal stenosis 11/22/2020 Assessment & Plan (12/20/2020 12:26 AM EST): 40 y.o. female with a past medical history of poly substance abuse, ETOH abuse, cardiac arrest and prolonged hospitalization now s/p Tracheostomy and PEG placement. She was saturating 100% on NC with audible stridor. CT of the H&N revealed severe tracheal stenosis that measures 4 mm in AP dimension at the level T1 vertebral body. Given the stridor and critical stenosis noted on CT neck, patient need urgent surgical intervention at this point in time. Patient will be taken to OR as a level A case. Major depressive disorder, recurrent, unspecifie d 11/08/2020 Hyperlipidemia, unspecified 11/08/2020 Assessment & Plan (02/27/2025 6:00 PM EDT): On 02/08 lipid panel with cholesterol 197, triglycerides 170, HDL 43, and LDL 120. ASCVD score given recent lipid panel places patient at a 12.1% chance for cardiovascular event in the next 10 years. Earlier in stay LDL 62 and controlled so atorvastatin was discontinued. Will trial low dose statin such as simvastatin at this time. -Started simvastatin 5 mg 02/09. Will continue on discharge. -Follow up lipid panel in 2 months (~04/11) Assessment & Plan (02/27/2025 5:35 PM EDT): On 02/08 lipid panel with cholesterol 197, triglycerides 170, HDL 43, and LDL 120. ASCVD score given recent lipid panel places patient at a 12.1% chance for cardiovascular event in the next 10 years. Earlier in stay LDL 62 and controlled so atorvastatin was discontinued. Will trial low dose statin such as simvastatin at this time. -Started simvastatin 5 mg 02/09 -Follow up lipid panel in 2 months (~04/11) Assessment & Plan (02/16/2025 4:41 PM EDT): On 02/08 lipid panel with cholesterol 197, triglycerides 170, HDL 43, and LDL 120. ASCVD score given recent lipid panel places patient at a 12.1% chance for cardiovascular event in the next 10 years. Earlier in stay LDL 62 and controlled so atorvastatin was discontinued. Will trial low dose statin such as simvastatin at this time. -Started simvastatin 5 mg 02/09 -Follow up lipid panel in 2 months (~04/11) Assessment & Plan (02/15/2025 3:26 PM EDT): On 02/08 lipid panel with cholesterol 197, triglycerides 170, HDL 43, and LDL 120. ASCVD score given recent lipid panel places patient at a 12.1% chance for cardiovascular event in the next 10 years. Earlier in stay LDL 62 and controlled so atorvastatin was discontinued. Will trial low dose statin such as simvastatin at this time. -Started simvastatin 5 mg 02/09 -Follow up lipid panel in 2 months (~04/11) Assessment & Plan (02/14/2025 6:02 PM EDT): On 02/08 lipid panel with cholesterol 197, triglycerides 170, HDL 43, and LDL 120. ASCVD score given recent lipid panel places patient at a 12.1% chance for cardiovascular event in the next 10 years. Earlier in stay LDL 62 and controlled so atorvastatin was discontinued. Will trial low dose statin such as simvastatin at this time. -Started simvastatin 5 mg 02/09 -Follow up lipid panel in 2 months (~04/11) Assessment & Plan (02/10/2025 12:24 PM EDT): On 02/08 lipid panel with cholesterol 197, triglycerides 170, HDL 43, and LDL 120. ASCVD score given recent lipid panel places patient at a 12.1% chance for cardiovascular event in the next 10 years. Earlier in stay LDL 62 and controlled so atorvastatin was discontinued. Will trial low dose statin such as simvastatin at this time. -Started simvastatin 5 mg 02/09, monitor for clinical change -Follow up lipid panel in 2 months Assessment & Plan (02/09/2025 10:05 AM EDT): On 02/08 lipid panel with cholesterol 197, triglycerides 170, HDL 43, and LDL 120. ASCVD score given recent lipid panel places patient at a 12.1% chance for cardiovascular event in the next 10 years. Earlier in stay LDL 62 and controlled so atorvastatin was discontinued. Will trial low dose statin such as simvastatin at this time. -Started simvastatin 5 mg 02/09, monitor for clinical change -Follow up lipid panel in 2 months Assessment & Plan (02/08/2025 11:33 AM EDT): On 01/07 lipid panel with cholesterol 135, triglycerides 169, HDL 39, and LDL 62. ASCVD score given recent lipid panel places patient at a 4.6% chance for cardiovascular event in the next 10 years. Well-controlled at this time, therefore atorvastatin 10 mg was discontinued. Recheck lipid panel in 1 month. -Reordered lipid panel on 02/08 will f/u Assessment & Plan (02/01/2025 4:26 PM EDT): On 01/07 lipid panel with cholesterol 135, triglycerides 169, HDL 39, and LDL 62. ASCVD score given recent lipid panel places patient at a 4.6% chance for cardiovascular event in the next 10 years. Well-controlled at this time, therefore atorvastatin 10 mg was discontinued. Recheck lipid panel in 1 month. -Plan is to recheck lipid panel on 02/08 Assessment & Plan (01/31/2025 11:43 AM EDT): On 01/07 lipid panel with cholesterol 135, triglycerides 169, HDL 39, and LDL 62. ASCVD score given recent lipid panel places patient at a 4.6% chance for cardiovascular event in the next 10 years. Well-controlled at this time, therefore atorvastatin 10 mg was discontinued. Recheck lipid panel in 1 month. -Plan is to recheck lipid panel on 02/08 Assessment & Plan (01/30/2025 5:00 PM EDT): On 01/07 lipid panel with cholesterol 135, triglycerides 169, HDL 39, and LDL 62. ASCVD score given recent lipid panel places patient at a 4.6% chance for cardiovascular event in the next 10 years. Well-controlled at this time, therefore atorvastatin 10 mg was discontinued. Recheck lipid panel in 1 month. -Plan is to recheck lipid panel on 02/08 Assessment & Plan (01/08/2025 10:32 AM EDT): ASCVD score given recent lipid panel places patient at a 4.6% chance for cardiovascular event in the next 10 years. Cholesterol noted to be 135 and low, triglycerides 169 and elevated, HDL low at 39, LDL 62 WNL on 01/07. Well- controlled at this time. Will remove atorvastatin 10 mg at this time, recheck lipid panel in x 1 month. -Recheck lipid panel on 02/08 Assessment & Plan (01/07/2025 12:14 PM EDT): ASCVD score given recent lipid panel places patient at a 4.6% chance for cardiovascular event in the next 10 years. Cholesterol noted to be 135 and low, triglycerides 169 and elevated, HDL low at 39, LDL 62 WNL on 01/07. Well- controlled at this time. Will remove atorvastatin 10 mg at this time, recheck lipid panel in x 1 month. -Discontinue atorvastatin today, recheck lipid panel in 1 month Assessment & Plan (01/06/2025 12:17 PM EDT): Unable to calculate full ASCVD score given no recent Lipid panel. - Continue atorvastatin 10 mg nightly -Follow up lipid panel from 01/06 Assessment & Plan (12/30/2024 2:21 PM EST): - Continue atorvastatin 10 mg nightly Assessment & Plan (12/23/2024 11:46 AM EST): - Continue atorvastatin 10 mg nightly Assessment & Plan (12/14/2024 4:29 PM EST): Home meds; atorvastatin 10mg nightly - Continue on home atorvastatin. Assessment & Plan (12/13/2024 4:20 PM EST): Home meds; atorvastatin 10mg nightly - Continue on home atorvastatin Assessment & Plan (12/12/2024 5:04 PM EST): Home meds; atorvastatin 10mg nightly - Continue on home atorvastatin Assessment & Plan (12/11/2024 2:18 PM EST): Home meds; atorvastatin 10mg nightly - Continue on home atorvastatin Assessment & Plan (12/10/2024 5:07 PM EST): Home meds; atorvastatin 10mg nightly - Continue on home atorvastatin Assessment & Plan (12/03/2024 2:46 PM EST): Home meds; atorvastatin 10mg nightly - Continue on home atorvastatin Assessment & Plan (12/02/2024 11:14 AM EST): Home meds; atorvastatin 10mg nightly - Continue on home atorvastatin Assessment & Plan (12/01/2024 2:09 PM EST): Home meds; atorvastatin 10mg nightly - Continue on home atorvastatin Assessment & Plan (11/30/2024 3:52 PM EST): Home meds; atorvastatin 10mg nightly - Continue on home atorvastatin Assessment & Plan (11/29/2024 10:52 AM EST): Home meds; atorvastatin 10mg nightly - Continue on home atorvastatin Assessment & Plan (11/28/2024 10:13 AM EST): Home meds; atorvastatin 10mg nightly - Continue on home atorvastatin Assessment & Plan (11/27/2024 10:04 AM EST): Home meds; atorvastatin 10mg nightly - Continue on home atorvastatin Assessment & Plan (11/26/2024 11:05 AM EST): Home meds; atorvastatin 10mg nightly - Continue on home atorvastatin Assessment & Plan (11/25/2024 12:51 PM EST): Home meds; atorvastatin 10mg nightly - Continue on home atorvastatin Assessment & Plan (11/24/2024 11:53 AM EST): Home meds; atorvastatin 10mg nightly - Continue on home atorvastatin Assessment & Plan (11/23/2024 2:20 PM EST): Home meds; atorvastatin 10mg nightly - Continue on home atorvastatin Assessment & Plan (11/16/2024 2:27 PM EST): Home meds; atorvastatin 10mg nightly - Continue on home atorvastatin Assessment & Plan (11/06/2024 2:12 PM EST): - Continue atorvastatin 10mg nightly Assessment & Plan (11/05/2024 11:29 AM EST): - Continue atorvastatin 10mg nightly Assessment & Plan (11/04/2024 10:11 AM EST): - Continue atorvastatin 10mg nightly Assessment & Plan (11/03/2024 10:30 AM EST): - Continue atorvastatin 10mg nightly Assessment & Plan (10/24/2024 2:19 PM EST): - Continue atorvastatin 10mg nightly Assessment & Plan (10/23/2024 11:08 AM EST): - Continue atorvastatin 10mg nightly Assessment & Plan (10/08/2024 3:40 PM EST): - Continue atorvastatin 10mg nightly Assessment & Plan (09/30/2024 4:48 PM EST): - Continue home atorvastatin 10mg nightly Assessment & Plan (09/29/2024 1:51 PM EST): - Continue home atorvastatin 10mg nightly Assessment & Plan (09/28/2024 2:31 PM EST): - Continue home atorvastatin 10mg nightly Assessment & Plan (09/11/2024 11:00 AM EST): - Continue home atorvastatin 10mg nightly Assessment & Plan (09/10/2024 12:27 PM EST): - Continue home atorvastatin 10mg nightly Assessment & Plan (09/09/2024 10:55 AM EST): - Continue home atorvastatin 10mg nightly Assessment & Plan (09/02/2024 3:09 PM EST): Continue home atorvastatin 10mg nightly Assessment & Plan (09/01/2024 2:00 PM EST): Continue home atorvastatin 10mg nightly Assessment & Plan (08/31/2024 5:30 PM EST): Continue home atorvastatin 10mg nightly Assessment & Plan (08/22/2024 11:55 AM EDT): Continue home atorvastatin 10mg nightly Assessment & Plan (08/21/2024 1:57 PM EDT): Continue home atorvastatin 10mg nightly Assessment & Plan (08/20/2024 10:26 AM EDT): Continue home atorvastatin 10mg nightly Assessment & Plan (08/13/2024 12:04 PM EDT): Continue home atorvastatin 10mg nightly Assessment & Plan (08/12/2024 10:12 AM EDT): Continue home atorvastatin 10mg nightly Assessment & Plan (08/11/2024 1:55 PM EDT): Continue home atorvastatin 10mg nightly Assessment & Plan (08/10/2024 4:12 PM EDT): Continue home atorvastatin 10mg nightly Assessment & Plan (08/09/2024 7:03 PM EDT): - Continue home atorvastatin 10mg nightly Assessment & Plan (08/05/2024 1:07 PM EDT): - Continue home atorvastatin 10mg nightly Assessment & Plan (08/04/2024 2:31 PM EDT): - Continue home atorvastatin 10mg nightly Assessment & Plan (08/03/2024 12:20 PM EDT): - Continue home atorvastatin 10mg nightly Assessment & Plan (08/02/2024 11:07 AM EDT): - Continue home atorvastatin 10mg nightly PTSD (post-traumatic stress disorder) 05/07/2020 Personality disorder 03/10/2019 Severe tobacco dependence 01/26/2019 Panic disorder with agoraphobia 02/19/2015 Bipolar affective disorder, depressed, severe, with psychotic behavior 02/19/2015 Overview (07/29/2024): R/o MDD with psychosis R/p schizoaffective disorder Alcohol dependence in remission 02/19/2015 Resolved Problems Problem Noted Date Diagnosed Date Resolved Date SOB (shortness of breath) 12/28/2024 Assessment & Plan (02/27/2025 6:05 PM EDT): Periodic complaints of shortness of breath and cough. Mini RVP negative on 12/22. Episodes of hypoxemia to 88% and has been persistently tachycardic (which is baseline, echo from 09/06/2024 unremarkable, EKG with sinus tachycardia). She does have many risk factors for PE including prolonged hospitalization, obesity, and immobility. Therefore, CT PE performed 12/30, and was without evidence of PE or pneumonia. Pt's breathing has improved with combination of nebulizers, PEP device, incentive spirometry and frequent ambulation. However, she continues to have profound hypoxia when sleeping and will need outpatient sleep study. - Continue pulmonary toileting, PEP and IS - Continue albuterol HFA PRN - Sleep medicine referral placed on discharge for sleep study - Symptom management of cough and congestion per facility Assessment & Plan (02/27/2025 5:35 PM EDT): Periodic complaints of shortness of breath and cough. Mini RVP negative on 12/22. Episodes of hypoxemia to 88% and has been persistently tachycardic (which is baseline). She does have many risk factors for PE including prolonged hospitalization, obesity, and immobility. Therefore, CT PE performed 12/30, and was without evidence of PE or pneumonia. Pt's breathing has improved with combination of nebulizers, PEP device, incentive spirometry and frequent ambulation. However, she continues to have profound hypoxia when sleeping and will need outpatient sleep study. - Continue pulmonary toileting, PEP and IS - Continue Duonebs - Robitussin for cough - Mucinex BID scheduled x 5 days (D1: 02/14) for secretions - Suspect pt with sleep apnea and will need outpatient sleep study Assessment & Plan (02/16/2025 4:41 PM EDT): Periodic complaints of shortness of breath and cough. Mini RVP negative on 12/22. Episodes of hypoxemia to 88% and has been persistently tachycardic (which is baseline). She does have many risk factors for PE including prolonged hospitalization, obesity, and immobility. Therefore, CT PE performed on 12/30, and was without evidence of PE or pneumonia. Pt's breathing has improved with combination of nebulizers, PEP device, incentive spirometry and frequent ambulation. However, she continues to have profound hypoxia when sleeping and will need outpatient sleep study. 02/14 pt had B/L diffuse coarse lung sounds and expiratory wheeezing on exam. Pt was on RA, satting >93% and had no c/o shortness of breath, cough or PHIPPS, started on scheduled Mucinex BID x 5 days--> noticeable improvement in lung sounds 02/15. - Continue pulmonary toileting, PEP and IS - Continue Duonebs - Robitussin for cough - Mucinex BID scheduled x 5 days (D1: 02/14) for secretions - Suspect pt with sleep apnea and will need outpatient sleep study Assessment & Plan (02/15/2025 3:26 PM EDT): Periodic complaints of shortness of breath and cough. Mini RVP negative on 12/22. Episodes of hypoxemia to 88% and has been persistently tachycardic (which is baseline). She does have many risk factors for PE including prolonged hospitalization, obesity, and immobility. Therefore, CT PE performed on 12/30, and was without evidence of PE or pneumonia. Pt's breathing has improved with combination of nebulizers, PEP device, incentive spirometry and frequent ambulation. However, she continues to have profound hypoxia when sleeping and will need outpatient sleep study. 02/14 pt had B/L diffuse coarse lung sounds and expiratory wheeezing on exam. Pt was on RA, satting >93% and had no c/o shortness of breath, cough or PHIPPS, started on scheduled Mucinex BID x 5 days--> noticeable improvement in lung sounds 02/15.. - Continue pulmonary toileting, PEP and IS - Continue Duonebs - Robitussin for cough - Mucinex BID scheduled x 5 days (D1: 02/14) for secretions - Suspect pt with sleep apnea and will need outpatient sleep study Assessment & Plan (02/14/2025 6:02 PM EDT): Periodic complaints of shortness of breath and cough. Mini RVP negative on 12/22. Episodes of hypoxemia to 88% and has been persistently tachycardic (which is baseline). She does have many risk factors for PE including prolonged hospitalization, obesity, and immobility. Therefore, CT PE performed on 12/30, and was without evidence of PE or pneumonia. Pt's breathing has improved with combination of nebulizers, PEP device, incentive spirometry and frequent ambulation. However, she continues to have profound hypoxia when sleeping and will need outpatient sleep study. 02/14 pt had B/L diffuse coarse lung sounds and expiratory wheeezing on exam. Pt was on RA, satting >93% and had no c/o shortness of breath, cough or PHIPPS. - Continue pulmonary toileting, PEP and IS - Continue Duonebs - Robitussin for cough -Added Mucinex BID scheduled x 5 days (D1: 02/14) for secretions - Suspect pt with sleep apnea and will need outpatient sleep study Assessment & Plan (02/10/2025 12:25 PM EDT): Periodic complaints of shortness of breath and cough. Mini RVP negative on 12/22. Episodes of hypoxemia to 88% and has been persistently tachycardic (which is baseline). She does have many risk factors for PE including prolonged hospitalization, obesity, and immobility. Therefore, CT PE performed on 12/30, and was without evidence of PE or pneumonia. Pt's breathing has improved with combination of nebulizers, PEP device, incentive spirometry and frequent ambulation, however she continues to have profound hypoxia when sleeping, and remains tachycardic but this has been a chronic issue for her. - Continue pulmonary toileting, PEP and IS - Continue Duonebs - Robitussin for cough - Repeat lung imaging as needed. Assessment & Plan (02/09/2025 9:57 AM EDT): Periodic complaints of shortness of breath and cough. Mini RVP negative on 12/22. Episodes of hypoxemia to 88% and has been persistently tachycardic (which is baseline). She does have many risk factors for PE including prolonged hospitalization, obesity, and immobility. Therefore, CT PE performed on 12/30, and was without evidence of PE or pneumonia. Pt's breathing has improved with combination of nebulizers, PEP device, incentive spirometry and frequent ambulation, however she continues to have profound hypoxia when sleeping, and remains tachycardic but this has been a chronic issue for her. - Continue pulmonary toileting, PEP and IS - Continue Duonebs - Robitussin for cough - Repeat lung imaging as needed. Assessment & Plan (02/07/2025 1:49 PM EDT): Periodic complaints of shortness of breath and cough. Mini RVP negative on 12/22. Episodes of hypoxemia to 88% and has been persistently tachycardic (which is baseline). She does have many risk factors for PE including prolonged hospitalization, obesity, and immobility. Therefore, CT PE performed on 12/30, and was without evidence of PE or pneumonia. Pt's breathing has improved with combination of nebulizers, PEP device, incentive spirometry and frequent ambulation, however she continues to have profound hypoxia when sleeping, and remains tachycardic but this has been a chronic issue for her. - Continue pulmonary toileting, PEP and IS - Continue Duonebs - Robitussin for cough - Repeat lung imaging as needed. Assessment & Plan (02/01/2025 4:26 PM EDT): Periodic complaints of shortness of breath and cough. Mini RVP negative on 12/22. Episodes of hypoxemia to 88% and has been persistently tachycardic (which is baseline). She does have many risk factors for PE including prolonged hospitalization, obesity, and immobility. Therefore, CT PE performed on 12/30, and was without evidence of PE or pneumonia. Pt's breathing has improved with combination of nebulizers, PEP device, incentive spirometry and frequent ambulation, however she continues to have profound hypoxia when sleeping, and remains tachycardic. Patient with reports of cough for ?1 week, and sounds congested on exam. - Continue pulmonary toileting, PEP and IS - Continue Duonebs - Robitussin for cough - Repeat lung imaging as needed. May consider repeat CT PE - Given congestion, cough, persistent nocturnal hypoxia, and wheezing on exam, mini RVP ordered 01/31 - High suspicion pt has underlying CHARLETTE and would benefit from outpatient sleep study. Assessment & Plan (01/31/2025 2:33 PM EDT): Periodic complaints of shortness of breath and cough. Mini RVP negative on 12/22. Episodes of hypoxemia to 88% and has been persistently tachycardic (which is baseline). She does have many risk factors for PE including prolonged hospitalization, obesity, and immobility. Therefore, CT PE performed on 12/30, and was without evidence of PE or pneumonia. Pt's breathing has improved with combination of nebulizers, PEP device, incentive spirometry and frequent ambulation, however she continues to have profound hypoxia when sleeping, and remains tachycardic. Patient with reports of cough for ?1 week, and sounds congested on exam. - Continue pulmonary toileting, PEP and IS - Continue Duonebs - Robitussin for cough - Repeat lung imaging as needed. May consider repeat CT PE - Given congestion, cough, persistent nocturnal hypoxia, and wheezing on exam, mini RVP ordered 01/31 - High suspicion pt has underlying CHARLETTE and would benefit from outpatient sleep study. Assessment & Plan (01/30/2025 5:00 PM EDT): Periodic complaints of shortness of breath and cough. Mini RVP negative on 12/22. Episodes of hypoxemia to 88% and has been persistently tachycardic (which is baseline). She does have many risk factors for PE including prolonged hospitalization, obesity, and immobility. Therefore, CT PE performed on 12/30, and was without evidence of PE or pneumonia. Pt's breathing has improved significantly due to combination of nebulizers, PEP device, incentive spirometry and frequent ambulation. - Continue Duonebs - Tessalon Perles prn for cough - Repeat lung imaging as needed - High suspicion pt has underlying CHARLETTE and would benefit from outpatient sleep study. Assessment & Plan (01/08/2025 10:32 AM EDT): Complaining of shortness of breath and cough since representation to the hospital on 12/21. Mini RVP negative. Episodes of hypoxemia to 88% and has been persistently tachycardic (which is baseline). She does have many risk factors for PE including prolonged hospitalization, obesity, and immobility. Therefore, CT PE performed and without evidence of PE or pneumonia. Her breathing has improved significantly due to combination of nebulizers, PEP device, incentive spirometry and frequent ambulation. Continues to deny shortness of breath on serial exams as of 01/08. - Continue to monitor - Guaifenesin and tessalon prn for management of cough - Continue duonebs - High suspicion pt with underlying CHARLETTE and would benefit from outpatient sleep study Assessment & Plan (01/07/2025 12:14 PM EDT): Complaining of shortness of breath and cough since representation to the hospital on 12/21. Mini RVP negative. Episodes of hypoxemia to 88% and has been persistently tachycardic (which is baseline). She does have many risk factors for PE including prolonged hospitalization, obesity, and immobility. Therefore, CT PE performed and without evidence of PE or pneumonia. Her breathing has improved significantly due to combination of nebulizers, PEP device, incentive spirometry and frequent ambulation. Continues to deny shortness of breath on serial exams as of 01/07. - Continue to monitor - Guaifenesin and tessalon prn for management of cough - Continue duonebs - High suspicion pt with underlying CHARLETTE and would benefit from outpatient sleep study Assessment & Plan (01/06/2025 2:05 AM EDT): Complaining of shortness of breath and cough since representation to the hospital on 12/21. Mini RVP negative. Episodes of hypoxemia to 88% and has been persistently tachycardic (which is baseline). She does have many risk factors for PE including prolonged hospitalization, obesity, and immobility. Therefore, CT PE performed and without evidence of PE or pneumonia. Her breathing has improved significantly due to combination of nebulizers, PEP device, incentive spirometry and frequent ambulation. - Continue to monitor - Guaifenesin and tessalon prn for management of cough - Continue duonebs - High suspicion pt with underlying CHARLETTE and would benefit from outpatient sleep study Assessment & Plan (12/30/2024 2:21 PM EST): Complaining of shortness of breath and cough since representation to the hospital. Mini RVP negative. Episodes of hypoxemia to 79-88% and has been persistently tachycardic (which is baseline). She does have many risk factors for PE including prolonged hospitalization, obesity and immobility. Therefore will proceed with CT PE. -CT PE Left knee pain 12/26/2024 01/30/2025 Assessment & Plan (02/22/2025 11:04 AM EDT): Patient endorsing left anterior knee pain on 01/19 after her elopement from the hospital mid-November. Reports she had to walk a far distance that bothered her back and knee. Lower extremity duplex without evidence of DVT. Left knee XR with no evidence of acute fracture or dislocation. 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 Small joint effusion and mild soft tissue edema. On exam, mild swelling to left prepatellar region compared to right. No limitations with flexion or extension. Will manage symptomatically and monitor for worsening pain or edema -tylenol prn -lidocaine patch prn -monitor for worsening edema, pain or presence of erythema/warmth and may consider further imaging/ortho consult as needed Assessment & Plan (01/30/2025 5:00 PM EDT): Patient endorsing left anterior knee pain on 01/19 after her elopement from the hospital mid-November. Reports she had to walk a far distance that bothered her back and knee. Lower extremity duplex without evidence of DVT. Left knee XR with no evidence of acute fracture or dislocation. 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 Small joint effusion and mild soft tissue edema. On exam, mild swelling to left prepatellar region compared to right. No limitations with flexion or extension. Will manage symptomatically and monitor for worsening pain or edema -tylenol prn -lidocaine patch prn -monitor for worsening edema, pain or presence of erythema/warmth and may consider further imaging/ortho consult as needed Assessment & Plan (12/30/2024 2:21 PM EST): On evaluation 12/26, she reports swelling and pain to left knee, rates it 5-6/10, states it happened after she eloped and came back to the hospital 12/20/24, denies fall or injury. Does have mildly limited ROM to left knee flexion, mild swelling medially. Xrays without radiographic findings of acute fracture or dislocation. Mild tricompartmental osteoarthritis. Minimal joint effusion. Soft tissues unremarkable. - elevate for comfort - PRN tylenol - PRN ice packs - encourage ambulation Suicidal ideation 12/22/2024 12/30/2024 Assessment & Plan (02/22/2025 11:04 AM EDT): Patient reported suicidal ideation and was placed on section 12. ED discussed with [facility] who recommended admission to medicine and psych consult. No longer reporting SI. -Psych engaged, no longer reporting SI. Section 12 was lifted Assessment & Plan (12/30/2024 2:21 PM EST): Patient reported suicidal ideation and was placed on section 12. ED discussed with [facility] who recommended admission to medicine and psych consult. No longer reporting SI. -Psych engaged, no longer reporting SI. Section 12 was lifted Assessment & Plan (12/23/2024 11:46 AM EST): Patient reported suicidal ideation and was placed on section 12. ED discussed with [facility] who recommended admission to medicine and psych consult. No longer reporting SI. -On section 12, Consulted psyc.h -Suicide precautions SIRS (systemic inflammatory response syndrome) 12/22/2024 12/23/2024 Assessment & Plan (02/22/2025 11:04 AM EDT): Presented with shortness of breath and found to be tachycardic, tachypneic and mild leukocytosis. Patient has baseline tachycardia. Mini RVP negative. Leukocytosis and tachypneia resolved without intervention. -Monitor off antibiotics Assessment & Plan (12/23/2024 11:46 AM EST): Presented with shortness of breath and found to be tachycardic, tachypneic and mild leukocytosis. Patient has baseline tachycardia. Mini RVP negative. Leukocytosis and tachypneia resolved without intervention. -Monitor off antibiotics Cough in adult 11/10/2024 12/12/2024 Assessment & Plan (12/12/2024 5:04 PM EST): Patient has had a seemingly chronic cough for several months described as being dry and mild. Patient will intermittently complain of shortness of breath with occasional hypoxic dips on her continuous pulse ox however, this is believed to be subsequent to her undiagnosed sleep apnea as patient sleeps throughout most of the day. As such on serial physical exams lung sounds are clear, and previous CXRs and RVP's have been negative. Labs unremarkable for leukocytosis, patient without fever, heart rate and SpO2 trending consistent with prior findings. As low suspicion for infection, likely lisinopril causing dry cough as symptoms developed after initiation of med on 10/30/24. Dc'd lisinopril 12/05 with much improvement in symptoms. Patient not using prn antitussives. -dc'd lisinopril 2/10 as culprit for dry cough with improvement in symptoms -As patient intermittently refusing ashley albuterol nebulizer will change to prn -Continue Tessalon Perles, benzocaine lozenges as needed for cough -If cough continues consider CXR if clinically warranted Assessment & Plan (12/11/2024 2:18 PM EST): Patient has had a seemingly chronic cough for several months described as being dry and mild. Patient will intermittently complain of shortness of breath with occasional hypoxic dips on her continuous pulse ox however, this is believed to be subsequent to her undiagnosed sleep apnea as patient sleeps throughout most of the day. As such on serial physical exams lung sounds are clear, and previous CXRs and RVP's have been negative. Labs unremarkable for leukocytosis, patient without fever, heart rate and SpO2 trending consistent with prior findings. As low suspicion for infection, likely lisinopril causing dry cough as symptoms developed after initiation of med on 10/30/24. Dc'd lisinopril 2/10 with much improvement in symptoms. Patient not using prn antitussives. -dc'd lisinopril 2/10 as culprit for dry cough with improvement in symptoms -As patient intermittently refusing ashley albuterol nebulizer will change to prn -Continue Tessalon Perles, benzocaine lozenges as needed for cough -If cough continues consider CXR if clinically warranted Assessment & Plan (12/10/2024 5:07 PM EST): Patient has had a seemingly chronic cough for several months described as being dry and mild. Patient will intermittently complain of shortness of breath with occasional hypoxic dips on her continuous pulse ox however, this is believed to be subsequent to her undiagnosed sleep apnea as patient sleeps throughout most of the day. As such on serial physical exams lung sounds are clear, and previous CXRs and RVP's have been negative. Labs unremarkable for leukocytosis, patient without fever, heart rate and SpO2 trending consistent with prior findings. As low suspicion for infection, likely lisinopril causing dry cough as symptoms developed after initiation of med on 10/30/24. Dc'd lisinopril 2/10 with much improvement in symptoms. Patient not using prn antitussives. -dc'd lisinopril 2/10 as culprit for dry cough with improvement in symptoms -As patient intermittently refusing ashley albuterol nebulizer will change to prn -Continue Tessalon Perles, benzocaine lozenges as needed for cough -If cough continues consider CXR if clinically warranted Assessment & Plan (12/08/2024 11:54 AM EST): Patient has had a seemingly chronic cough for several months described as being dry and mild. Patient will intermittently complain of shortness of breath with occasional hypoxic dips on her continuous pulse ox however, this is believed to be subsequent to her undiagnosed sleep apnea as patient sleeps throughout most of the day. As such on serial physical exams lung sounds are clear, and previous CXRs and RVP's have been negative. Labs unremarkable for leukocytosis, patient without fever, heart rate and SpO2 trending consistent with prior findings. As low suspicion for infection, likely lisinopril causing dry cough as symptoms developed after initiation of med on 10/30/24. Dc'd lisinopril 2/10 with much improvement in symptoms. Patient not using prn antitussives. -dc'd lisinopril 2/10 as culprit for dry cough with improvement in symptoms -As patient intermittently refusing ashley albuterol nebulizer will change to prn -Continue Tessalon Perles, benzocaine lozenges as needed for cough -If cough continues consider CXR if clinically warranted Assessment & Plan (12/02/2024 11:14 AM EST): Patient has had a seemingly chronic cough for several months described as being dry and mild. Patient will intermittently complain of shortness of breath with occasional hypoxic dips on her continuous pulse ox however, this is believed to be subsequent to her undiagnosed sleep apnea as patient sleeps throughout most of the day. As such on serial physical exams lung sounds are clear, and previous CXRs and RVP's have been negative. Added on scheduled DuoNeb every 4 hours on 11/30, given patient stating cough worsening. Previous CXR on 11/23 unremarkable and showed improvement in hypoinflated lungs. Labs unremarkable for leukocytosis, patient without fever, heart rate and SpO2 trending consistent with prior findings. As such, will hold off on further imaging at this time. RVP from 11/30 WNL. - Continue DuoNebs every 4 hours scheduled - Continue Tessalon Perles, benzocaine lozenges as needed for cough, versus Robitussin syrup - Acquire CXR if clinically warranted Assessment & Plan (12/01/2024 2:20 PM EST): Patient has had a seemingly chronic cough for several months described as being dry and mild. Patient will intermittently complain of shortness of breath with occasional hypoxic dips on her continuous pulse ox however, this is believed to be subsequent to her undiagnosed sleep apnea as patient sleeps throughout most of the day. As such on serial physical exams lung sounds are clear, and previous CXRs and RVP's have been negative. Added on scheduled DuoNeb every 4 hours on 11/30, given patient stating cough worsening. Previous CXR on 11/23 unremarkable and showed improvement in hypoinflated lungs. Labs unremarkable for leukocytosis, patient without fever, heart rate and SpO2 trending consistent with prior findings. As such, will hold off on further imaging at this time. RVP from 11/30 WNL. - Continue DuoNebs every 4 hours scheduled - Continue Tessalon Perles, benzocaine lozenges as needed for cough, versus Robitussin syrup - Acquire CXR if clinically warranted Assessment & Plan (11/30/2024 4:07 PM EST): Patient has had a seemingly chronic cough for several months described as being dry and mild. Patient will intermittently complain of shortness of breath with occasional hypoxic dips on her continuous pulse ox however, this is believed to be subsequent to her undiagnosed sleep apnea as patient sleeps throughout most of the day. As such on serial physical exams lung sounds are clear, and previous CXRs and RVP's have been negative. Added on scheduled DuoNeb every 4 hours on 11/30, given patient stating cough worsening. Previous CXR on 11/23 unremarkable and showed improvement in hypoinflated lungs. Labs unremarkable for leukocytosis, patient without fever, heart rate and SpO2 trending consistent with prior findings. As such, will hold off on further imaging at this time. - Continue DuoNebs every 4 hours scheduled - Continue Tessalon Perles, benzocaine lozenges as needed for cough, versus Robitussin syrup - Acquire CXR if clinically warranted, will repeat RVP for now Assessment & Plan (11/22/2024 1:13 PM EST): 11/10/24 patient complained of cough x a few days. Patient states cough is dry. Associated symptoms of nasal congestion and shortness of breath. Able to hear cough while in room, sounded tight and wheezy. On exam patient noted to have mild B/L rhonchi and anterior upper lung carreon, was satting 86% on room air, NC applied with improvement of O2 sat. CXR was ordered, revealed improved aeration at B/L lung bases with mild elevation of the diaphragm, lungs otherwise clear with no consolidations or acute processes. Compared to CXR from 01/2023, no prior from this admission to compare to. Mini RVP was sent, returned negative. CBC revealed no leukocytosis, patient has not spiked any fevers. Provided patient with IS at bedside, educated on how to use, patient demonstrated proper usage when prompted however unsure how compliant she will be independently. Back to RA. - Cont. Pox--> may remove while patient is sleeping iso frequent desats 2/2 likely undiagnosed CHARLETTE - O2 PRN to maintain sats >92% -Tessalon perles 100mg 3 times a day PRN - D/C PRN alb. nebs and BID ipratropium inhaler-->added DuoNebs 4x/daily scheduled - Incentive spirometry -resolved Leukocytosis 08/23/2024 01/06/2025 Assessment & Plan (01/06/2025 12:11 PM EDT): On 01/02, found to have mild leukocytosis (WBC 11.4) on routine labs. She denies fever or chills. She did recently have cough and shortness of breath, but feels those symptoms have improved and work up with RVP and chest CT were negative. Cough was also thought to be related to lisinopril usage previously. She denies any other infectious symptoms. On review, has had intermittent leukocytosis throughout hospitalization. - Trend leukocytosis, repeat CBC on 01/04 normalized, remains afebrile and does not appear infectious - If develops fever or symptoms then will initiate work up Assessment & Plan (10/23/2024 11:08 AM EST): Patient with mild persistent leukocytosis, stable. She is afebrile. Denies shortness of breath, cough, dysuria, diarrhea. No signs/symptoms of any active infectious process. Monitor for now, infectious work up if symptomatic. Assessment & Plan (10/08/2024 3:39 PM EST): Patient with mild persistent leukocytosis, stable. She is afebrile. Denies shortness of breath, cough, dysuria, diarrhea. No signs/symptoms of any active infectious process. Monitor for now, infectious work up if symptomatic. Assessment & Plan (09/30/2024 4:48 PM EST): Patient with mild persistent leukocytosis, stable. She is afebrile. Denies shortness of breath, cough, dysuria, diarrhea. No signs/symptoms of any active infectious process. Last WBC 10.9 on 09/26. -Weekly CBC on Mondays -If patient becomes febrile or if infectious symptoms arise, will order CBC and infectious work-up (CXR, UA, blood cultures) Assessment & Plan (09/29/2024 1:51 PM EST): Patient with mild persistent leukocytosis, stable. She is afebrile. Denies shortness of breath, cough, dysuria, diarrhea. No signs/symptoms of any active infectious process. Last WBC 10.9 on 09/26. -Weekly CBC on Mondays -If patient becomes febrile or if infectious symptoms arise, will order CBC and infectious work-up (CXR, UA, blood cultures) Assessment & Plan (09/28/2024 2:31 PM EST): Patient with mild persistent leukocytosis, stable. She is afebrile. Denies shortness of breath, cough, dysuria, diarrhea. No signs/symptoms of any active infectious process. Last WBC 10.9 on 09/26. -Weekly CBC on Mondays -If patient becomes febrile or if infectious symptoms arise, will order CBC and infectious work-up (CXR, UA, blood cultures) Assessment & Plan (09/09/2024 10:55 AM EST): Patient with persistent leukocytosis, stable. She is afebrile. Denies shortness of breath, dysuria, diarrhea. Patient with non-productive cough. COVID, Flu, and RSV negative. No signs/symptoms of any active infectious process. -Weekly CBC on Mondays -If patient becomes febrile or if infectious symptoms arise, will order CBC and infectious work-up (CXR, UA, blood cultures) Assessment & Plan (09/02/2024 3:09 PM EST): WBC elevated at 12.2 on 08/29/2024. She is afebrile. Denies shortness of breath, dysuria, diarrhea. Patient with non-productive cough. COVID, Flu, and RSV negative. No signs/symptoms of any active infectious process. -Weekly CBC on Mondays -If patient becomes febrile or if infectious symptoms arise, will order CBC and infectious work-up (CXR, UA, blood cultures) Assessment & Plan (09/01/2024 2:00 PM EST): WBC elevated at 12.2 on 08/29/2024. She is afebrile. Denies shortness of breath, dysuria, diarrhea. Patient with non-productive cough. COVID, Flu, and RSV negative. No signs/symptoms of any active infectious process. -Weekly CBC on Mondays -If patient becomes febrile or if infectious symptoms arise, will order CBC and infectious work-up (CXR, UA, blood cultures) Assessment & Plan (08/31/2024 5:30 PM EST): WBC elevated at 12.2 on 08/29/2024. She is afebrile. Denies shortness of breath, dysuria, diarrhea. Patient with non-productive cough. COVID, Flu, and RSV negative. No signs/symptoms of any active infectious process. -Weekly CBC on Mondays -If patient becomes febrile or if infectious symptoms arise, will order CBC and infectious work-up (CXR, UA, blood cultures) Agitation 08/11/2024 08/19/2024 Assessment & Plan (09/28/2024 2:31 PM EST): Assessment & Plan (08/12/2024 10:12 AM EDT): Assessment & Plan (08/11/2024 1:55 PM EDT): Tracheostomy present 10/09/2021 Assessment & Plan (09/28/2024 2:31 PM EST): Trach after cardiac arrest. Decannulated sometime in mid 2022. Stoma present, unclear if fully healed. No exudate draining. Assessment & Plan (08/31/2024 5:30 PM EST): Trach after cardiac arrest. Decannulated sometime in mid 2022. Stoma present, unclear if fully healed. No exudate draining. Assessment & Plan (08/22/2024 11:55 AM EDT): Trach after cardiac arrest. Decannulated sometime in mid 2022. Stoma present, unclear if fully healed. No exudate draining. Assessment & Plan (08/21/2024 1:57 PM EDT): Trach after cardiac arrest. Decannulated sometime in mid 2022. Stoma present, unclear if fully healed. No exudate draining. Assessment & Plan (08/20/2024 10:25 AM EDT): Trach after cardiac arrest. Decannulated sometimes in mid 2022. Stoma present, unclear if fully healed. No exudate draining. Assessment & Plan (08/19/2024 5:11 PM EDT): Trach after cardiac arrest. Decannulated sometimes in mid 2022. Stoma present, unclear if fully healed. No exudate draining. Assessment & Plan (10/10/2021 6:20 PM EST): Patient with a history of tracheostomy placement due to anoxic brain injury. From report patient is not on any trach mask. From records patient had a recent tracheostomy tube dislodgment on 09/28/2021 which was successfully replaced. No resp distress - stable Cardiac arrest 09/27/2020 08/21/2024 Opiate abuse, continuous 05/28/2020 Anxiety 08/31/2019 08/21/2024 Psychosis 03/10/2019 08/21/2024 Immunizations Immunization Administration Dates Next Due Covid-19, Pfizer, mRNA, [place] valent, PF 30 mcg/0.3 mL dose (for ages 12 and older) 12/13/2020,11/22/2020 Influenza, Injectable, Quadr ivalent, Preservative Free 10/11/2021 PPD Test 11/28/2024(Deferred: Other - ? quantiferon gold instead.) Tetanus Toxoid, Reduced Diph theria Toxoid, and Acellular Pertussis Vaccine, Adsorbed 04/03/2017 Tetanus and Diphtheria Toxoi ds, Adsorbed, Preservative Free (2 Lf of Tetanus Toxoid and 2 Lf of Diphtheria Toxoid) 09/28/2021(Deferred: See Provider Order) Tuberculin Skin Test; Bhupendraifi ed Protein Derivative Solution, Intradermal 05/28/2020 Social History Tobacco Use Types Packs/Day Years Used Date Smoking Tobacco: Former Cigarettes 15 1 10/26/2004 - 08/26/2020 Smokeless Tobacco: Never Alcohol Use Standard Drinks/Week Comments Not Currently 0 (1 standard drink = 0.6 oz pur e alcohol) [facility] Utilities Answer Date Recorded In the past 12 months has [employer], gas, oil, or water [employer] threatened to shut off services in your home? No 12/22/2024 Transportation Answer Date Recorded In the past 12 months, has l ack of reliable transportation kept you from medical appointments, meetings, work or from getting things needed for daily living? Yes 12/22/2024 Housing Answer Date Recorded Housing Risk Low 1 12/22/2024 Housing Risk Medium Not on file 12/22/2024 Housing Risk High 1 12/22/2024 What is your living situation today? [facility]NOSTEAD[facility] 12/22/2024 Comments No Sex and Gender Information Value Date Recorded Sex Assigned at Female 09/10/2023 9:04 PM EST Legal Sex Female 10:51 AM EST Gender Identity Female 09/10/2023 9:04 PM EST Sexual Orientation Not on file Last Filed Vital Signs Vital Sign Reading Time Taken Comments Blood Pressure 116/84 02/28/2025 8:20 AM EDT Pulse 117 02/28/2025 8:20 AM EDT Temperature 36.5 C (97.7 F) 02/28/2025 8:20 AM EDT Respiratory Rate 18 02/28/2025 8:20 AM EDT Oxygen Saturation 94% 02/28/2025 8:20 AM EDT Inhaled Oxygen Concentration - - Weight 137.5 kg (303 lb 2.1 oz) 02/07/2025 6:09 AM EDT Height 167.6 cm (5' 5.98 ) 12/22/2024 6:05 PM ES T Body Mass Index 48.95 12/22/2024 6:05 PM EST Plan of Treatment Health Maintenance Due Date Last Done Comments Cervical Cancer Screening 1980 Cologuard 1980 Colon Cancer Screening 1980 Colonoscopy 1980 FOBT / Fit Test 1980 HIV Screening 1980 HPV and Pap Smear 1980 Pap Smear 1980 Sigmoidoscopy 1980 Ophthalmology Exam 1990 Varicella Vaccines (1 of 2 - 13+ 2-dose series) 1993 Hepatitis B Vaccines (1 of 3 - 19+ 3-dose series) 1999 Urine Microalbumin 09/28/2021 09/28/2020 Mammogram 10/19/2022 10/19/2020 Alcohol/Substance Use Screening 10/26/2024 Depression Screening and Follow-Up 10/26/2024 Social Drivers of Health Radha ual Screening 10/26/2024 Hemoglobin A1C 04/24/2025 10/25/2024 Influenza Vaccine (#1) 2025 , 07/23/2022, 07/18/2022, Additional history exists COVID-19 Vaccine (2024-11 6 season) 2025 10/12/2023, 07/23/2022, 04/08/2022, Additional history exists Basic Metabolic Panel 02/27/2026 02/27/2025 , 02/20/2025, 02/13/2025, Additional history exists DTaP,Tdap,and Td Vaccines (2 - Td or Tdap) 04/03/2027 04/03/2017 Hepatitis C Screening Completed 09/28/2020, 020 Pneumococcal Vaccine: Pediat lolita (0-5 Years) and At-Risk Patients (6-50 Years) Completed 09/12/2022 Procedures * Due to [place] [employer] law, this organization might not be sharing negative HIV tests. Procedure Name Priority Date/Time Associated Diagnosis Comments BASIC METABOLIC PANEL Timed 02/27/2025 4:24 AM EDT HEMOGLOBIN A1C Routine 10/25/2024 7:56 AM EST from Last 3 Months or Most Recently Relevant to Health Maintenance Results * Due to [place] [employer] law, this organization might not be sharing negative HIV tests. * (ABNORMAL) Basic metabolic panel (02/27/2025 4:24 AM EDT) NA 139 135 - 145 mmol/L 02/27/2025 4:58 AM EDT [facility] K 4.2 3.5 - 5.3 mmol/L 02/27/2025 4:58 AM EDT [facility] Cl 103 98 - 107 mmol/L 02/27/2025 4:58 AM EDT [facility] CO2 27 22 - 32 mmol/L 02/27/2025 4:58 AM EDT [facility] BUN 6(L) 7 - 23 mg/dL 02/27/2025 4:58 AM EDT [facility] Creatinine 0.55 0.50 - 1.20 mg/dL 02/27/2025 4:58 AM EDT [facility] Glucose 153(H) 65 - 99 mg/dL 02/27/2025 4:58 AM EDT [facility] Calcium 8.9 8.6 - 10.5 mg/dL 02/27/2025 4:58 AM EDT [facility] Anion Gap 9 5 - 15 02/27/2025 4:58 AM EDT [facility] eGFR >90 >=60 mL/min/1. 73m2 02/27/2025 4:58 AM EDT [facility] Comment:The estimated glomer ular filtration rate (eGFR) is calculated using a new formula developed by the NKF-ASN task force to eliminate race-based correction factors. The new formula uses serum/plasma creatinine, age, and gender to determine eGFR. A value below 60mls/min might indicate kidney disease and will be flagged. For additional information, see Davila et al, Am J Kidney Dis. 2021;79(2):268- 288, A Unifying Approach for GFR estimation: Recommendations of the NKF-ASN Task Force on Reassessing the Inclusion of Race in Diagnosing Kidney Disease . Blood Structure of peripheral vein / Unknown Venipuncture / Unknown 02/27/2025 4:24 AM EDT 02/27/2025 4:28 AM EDT us Lesly Zuñiga MD LAB BLOOD ORDERABLES nal Result [facility] [address] [place] [address], * (ABNORMAL) Hemoglobin A1c (10/25/2024 7:56 AM EST) Hemoglobin A1C 8.6(H) <5.7 % of total Hgb 10/25/2024 6:13 PM EST [facility] Comment: For someone without known diabetes, a hemoglobin A1c value of 6.5% or greater indicates that they may have diabetes and this should be confirmed with a follow-up test. For someone with known diabetes, a value <7% indicates that their diabetes is well controlled and a value greater than or equal to 7% indicates suboptimal control. A1c targets should be individualized based on duration of diabetes, age, comorbid conditions, and other considerations. Currently, no consensus exists regarding use of hemoglobin A1c for diagnosis of diabetes for children. eAG (MG/DL) 200 mg/dL 10/25/2024 6:13 PM EST [facility] eAG (MMOL/L) 11.1 mmol/L 10/25/2024 6:13 PM EST [facility] Blood Structure of peripheral vein / Unknown Venipuncture / Unknown 10/25/2024 7:56 AM EST 10/25/2024 8:19 AM EST Narrative [facility] - 10/25/2024 6:13 PM EST [facility] Received Date: us Javi WATKINS LAB BLOOD ORDERABLES Fi nal Result [facility] [address], [place] [address], [facility] [employer] [facility] [address], [place] [address], [place] [phone] from Last 3 Months or Most Recently Relevant to Health Maintenance Insurance [employer] [facility] [address] [facility] [place] Advance Directives Documents on File Type Date Recorded Patient Day Habilitation Supervisor Expl anation Health Care Proxy 02/27/2025 11:36 AM speci al proceeding / HCP Health Care Proxy 06/17/2024 2:02 PM Activ ation Form 11/08/2020 Health Care Proxy 06/17/2024 2:02 PM Kristen Willis 0 11-08-2020 MOLST/POLST 02/01/2024 7:30 AM 11-08-2023 Health Care Proxy 02/01/2024 7:30 AM 2020 Health Care Proxy 02/01/2024 7:30 AM [place] 11/08/20 MOLST/POLST 06/21/2023 8:15 AM 11-08-2020 Health Care Proxy 04/30/2023 1:10 PM 2020 MOLST/POLST 01/19/2023 7:44 AM 11-08-2020 Health Care Proxy 05/15/2022 4:33 PM appoi ntment of health care passenger representative MOLST/POLST 05/15/2022 4:33 PM 11-13-2020 Health Care Proxy 10/16/2021 7:17 AM 10/26 02/13 Health Care Proxy 06/12/2021 9:01 AM Appoi ntment of Health Care Day Habilitation Supervisor 11/08/20 Health Care Proxy 05/19/2021 12:13 PM Acti vation Form 11/08/20 MOLST/POLST 04/08/2021 7:57 PM 11-08-2020 Health Care Proxy 12/21/2020 2:36 PM 11-08 Health Care Proxy 12/21/2020 9:49 AM Healt h Care Day Habilitation Supervisor * Full Code (Latest Code Status on File) Date Activated Date Inactivated Comments 12/22/2024 4:12 AM 02/28/2025 4:00 PM * Full Code Date Activated Date Inactivated Comments 07/29/2024 4:37 PM 12/20/2024 3:25 AM * Presumed Full Code Date Activated Date Inactivated Comments 07/29/2024 3:48 PM 07/29/2024 4:36 PM * Full Code Date Activated Date Inactivated Comments 01/27/2023 3:18 PM 01/28/2023 5:27 PM * Full Code Date Activated Date Inactivated Comments 01/27/2023 1:17 PM 01/27/2023 3:18 PM Healthcare Agents on File Name Relationship Healthcare Agent Relationship Communication Rodrigue Rodriguez [facility] Agent [email or web address] Kristen Willis [facility] ent Care Teams Polystyrene Molding Machine Tender Relationship Specialty Start Date End Date Ref, Hasnopcp DO NOT EDIT THIS RECORD VIA PROVIDER ON THE FLY PCP - General Process Safety Manager 02/28/25
--- OUTSIDE RECORDS SUMMARY | 2025-10-18 12:39 | XMS_ITS ---
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
--- OUTSIDE RECORDS SUMMARY | 2025-10-18 12:40 | XMS_ITS | Encounter Summary ---
Author Organization [facility] Address [address] [place] [address] Care Team Providers Care Marketing Producer Name Role Phone Ulysses Judd MD Primary Care Provider [phone] Encounter Details Date Type Department Care Team (Late st Contact Info) Description 05/31/2025 Lab Requisition [facility] - Main Lab [address] [facility] [place] [address] Ulysses Judd MD [address] [place] [address] [address] [place], [place] Encounter for screening for diseases of the blood and blood-forming organs and certain disorders involving the immune mechanism; Type 2 diabetes mellitus with hyperglycemia (CMS/HCC V24, CMS/HCC V28) Social History Tobacco Use Types Packs/Day Years Used Date Smoking Tobacco: Every Day Cigarettes Smokeless Tobacco: Never Alcohol Use Standard Drinks/Week Comments No 0 (1 standard drink = 0.6 oz pur e alcohol) Comments Unknown Sex and Gender Information Value Date Recorded Sex Assigned at Not on file Legal Sex Female 3:01 PM EST Gender Identity Not on file Sexual Orientation Not on file documented as of this encounter Plan of Treatment Not on file documented as of this encounter Procedures Procedure Name Priority Date/Time Associated Diagnosis Comments CBC WITH AUTO DIFFERENTIAL Routine 05/31/2025 6:27 AM EDT Encounter for screening for diseases of the blood and blood-forming organs and certain disorders involving the immune mechanism Type 2 diabetes mellitus with hyperglycemia (CMS/HCC V24, CMS/HCC V28) CBC AND DIFFERENTIAL Routine 05/31/2025 6:27 AM EDT Encounter for screening for diseases of the blood and blood-forming organs and certain disorders involving the immune mechanism Type 2 diabetes mellitus with hyperglycemia (CMS/HCC V24, CMS/HCC V28) HEMOGLOBIN A1C Routine 05/31/2025 6:27 AM EDT Encounter for screening for diseases of the blood and blood-forming organs and certain disorders involving the immune mechanism Type 2 diabetes mellitus with hyperglycemia ([facility] V24, [facility] V28) COMPREHENSIVE METABOLIC PANEL Routine 05/31/2025 6:27 AM EDT Encounter for screening for diseases of the blood and blood-forming organs and certain disorders involving the immune mechanism Type 2 diabetes mellitus with hyperglycemia ([facility] V24, [facility] V28) documented in this encounter Results * (ABNORMAL) CBC auto differential (05/31/2025 6:27 AM EDT) [facility] WBC 9.3 4.8 - 10.8 K/mcL LAB HEMETOLOGY METHOD 05/31/2025 8:03 AM [facility] RBC 5.20(H) 3.80 - 4.80 M/mcL LAB HEMETOLOGY METHOD 05/31/2025 8:03 AM [facility] Hemoglobin 12.6 11.5 - 16.0 g/dL LAB HEMETOLOGY METHOD 05/31/2025 8:03 AM [facility] Hematocrit 43.4 35.0 - 47.0 % LAB HEMETOLOGY METHOD 05/31/2025 8:03 AM [facility] MCV 83.1 79.0 - 98.0 FL LAB HEMETOLOGY METHOD 05/31/2025 8:03 AM [facility] MCH 24.1(L) 27.0 - 32.0 pcg LAB HEMETOLOGY METHOD 05/31/2025 8:03 AM [facility] MCHC 29.0(L) 32.0 - 37.0 g/dL LAB HEMETOLOGY METHOD 05/31/2025 8:03 AM [facility] RDW 16.7(H) 11.0 - 15.0 % LAB HEMETOLOGY METHOD 05/31/2025 8:03 AM [facility] Platelets 365 130 - 400 K/mcL LAB HEMETOLOGY METHOD 05/31/2025 8:03 AM [facility] MPV 9.5 7.0 - 11.0 FL LAB HEMETOLOGY METHOD 05/31/2025 8:03 AM [facility] NRBC 0.0 <1.0 % LAB HEMETOLOGY METHOD 05/31/2025 8:03 AM [facility] NRBC Absolute 0.00 <0.10 K/mcL LAB HEMETOLOGY METHOD 05/31/2025 8:03 AM [facility] Neutrophils Relative 59.3 % LAB HEMETOLOGY METHOD 05/31/2025 8:03 AM [facility] Lymphocytes Relative 30.9 % LAB HEMETOLOGY METHOD 05/31/2025 8:03 AM [facility] Monocytes Relative 7.3 % LAB HEMETOLOGY METHOD 05/31/2025 8:03 AM [facility] Eosinophils Relative 1.0 % LAB HEMETOLOGY METHOD 05/31/2025 8:03 AM [facility] Basophils Relative 0.4 % LAB HEMETOLOGY METHOD 05/31/2025 8:03 AM [facility] Immature Granulocytes Relative 1.1 % LAB HEMETOLOGY METHOD 05/31/2025 8:03 AM [facility] Neutrophils Absolute 5.54 1.50 - 7.00 K/mcL LAB HEMETOLOGY METHOD 05/31/2025 8:03 AM [facility] Lymphocytes Absolute 2.88 1.00 - 5.00 K/mcL LAB HEMETOLOGY METHOD 05/31/2025 8:03 AM [facility] Monocytes Absolute 0.68 0.20 - 1.00 K/mcL LAB HEMETOLOGY METHOD 05/31/2025 8:03 AM EDT [facility] Eosinophils Absolute 0.09 0.00 - 0.50 K/mcL LAB HEMETOLOGY METHOD 05/31/2025 8:03 AM EDT [facility] Basophils Absolute 0.04 0.00 - 0.20 K/mcL LAB HEMETOLOGY METHOD 05/31/2025 8:03 AM EDT [facility] Immature Granulocytes Absolute 0.10(H) 0.00 - 0.03 K/mcL LAB HEMETOLOGY METHOD 05/31/2025 8:03 AM EDT [facility] Blood Venous blood specimen / Unknown 05/31/2025 6:27 AM EDT 05/31/2025 7:31 AM EDT us Ulysses Judd MD LAB BLOOD ORDERABLES Final Resul t Performing Organization Address City[facility]/ZIP Co de Phone Number [facility] [address] [place] [address], [place] [phone] * (ABNORMAL) Hemoglobin A1c (05/31/2025 6:27 AM EDT) Hemoglobin A1C 6.9(H) <6.5 % LAB CHEMISTRY METHOD 05/31/2025 11:18 AM EDT [facility] Mean Bld Glu Estim. 151 mg/dL LAB CHEMISTRY METHOD 05/31/2025 11:18 AM EDT [facility] Blood Venous blood specimen / Unknown 05/31/2025 6:27 AM EDT 05/31/2025 7:31 AM EDT us Ulysses Judd MD LAB BLOOD ORDERABLES Final Resul t Performing Organization Address [facility]/ZIP Co de Phone Number [facility] [address] [place] [address], [place] [phone] * (ABNORMAL) Comprehensive metabolic panel (05/31/2025 6:27 AM EDT) Sodium 139 133 - 145 mmol/L LAB CHEMISTRY METHOD 05/31/2025 8:26 AM [facility] Potassium 4.4 3.5 - 5.5 mmol/L LAB CHEMISTRY METHOD 05/31/2025 8:26 AM [facility] Chloride 107 96 - 110 mmol/L LAB CHEMISTRY METHOD 05/31/2025 8:26 AM [facility] CO2 29 21 - 32 mmol/L LAB CHEMISTRY METHOD 05/31/2025 8:26 AM [facility] Anion Gap 3 3 - 11 LAB CHEMISTRY METHOD 05/31/2025 8:26 AM [facility] Glucose 97 70 - 100 mg/dL LAB CHEMISTRY METHOD 05/31/2025 8:26 AM [facility] BUN 7 5 - 25 mg/dL LAB CHEMISTRY METHOD 05/31/2025 8:26 AM [facility] Creatinine 0.59 0.50 - 1.10 mg/dL LAB CHEMISTRY METHOD 05/31/2025 8:26 AM [facility] eGFR 114 >=60 mL/min/1. 73m2 LAB CHEMISTRY METHOD 05/31/2025 8:26 AM [facility] Comment:Calculation based on the Chronic Kidney Disease Epidemiology Collaboration (CKD-EPI) equation refit without adjustment for race. BUN/Creatinine Ratio 11.9 LAB CHEMISTRY METHOD 05/31/2025 8:26 AM [facility] Calcium 9.4 8.5 - 10.5 mg/dL LAB CHEMISTRY METHOD 05/31/2025 8:26 AM [facility] AST (SGOT) 8(L) 10 - 42 unit/L LAB CHEMISTRY METHOD 05/31/2025 8:26 AM [facility] ALT (SGPT) 18 10 - 60 unit/L LAB CHEMISTRY METHOD 05/31/2025 8:26 AM [facility] Alkaline Phosphatase 91 42 - 121 unit/L LAB CHEMISTRY METHOD 05/31/2025 8:26 AM EDT [facility] Total Protein 6.9 6.0 - 8.0 g/dL LAB CHEMISTRY METHOD 05/31/2025 8:26 AM EDT [facility] Albumin 3.5 3.2 - 5.0 g/dL LAB CHEMISTRY METHOD 05/31/2025 8:26 AM EDT [facility] Total Bilirubin 0.2 0.0 - 1.4 mg/dL LAB CHEMISTRY METHOD 05/31/2025 8:26 AM EDT [facility] Blood Venous blood specimen / Unknown 05/31/2025 6:27 AM EDT 05/31/2025 7:31 AM EDT us Ulysses Judd MD LAB BLOOD ORDERABLES Final Resul t [facility] [address] [place] [address], [place] [phone] documented in this encounter Visit Diagnoses Diagnosis Encounter for screening for diseases of the blood and blood-forming organs and certain disorders involving the immune mechanism Type 2 diabetes mellitus with hyperglycemia (CMS/HCC V24, CMS/HCC V28) documented in this encounter Care Teams Marketing Producer Relationship Specialty Start Date End Date Ulysses Judd MD [address] [place], [place] PCP - General Internal Medicine 03/01/25 documented as of this encounter
--- OUTSIDE RECORDS SUMMARY | 2025-10-18 12:40 | XMS_ITS | Encounter Summary ---
Author Organization [facility] Address [address] [place] [address] Care Team Providers Care Laboratory Animal Care Veterinarian Name Role Phone Ulysses Judd MD Primary Care Provider [phone] Encounter Details Date Type Department Care Team (Late st Contact Info) Description 06/23/2025 Lab Requisition [facility] - Main Lab [address] [place] [address] Ulysses Judd MD [address] [place] [address] Dr [address] [place], [place] Other residential (current) drug therapy Social History Tobacco Use Types Packs/Day Years [...] Procedure Name Priority Date/Time Associated Diagnosis Comments AMMONIA Routine 06/23/2025 7:15 AM EDT Other long term care phlebotomist (current) drug therapy documented in this encounter Results * (ABNORMAL) Ammonia (06/23/2025 7:15 AM EDT) Ammonia 57(H) 11 - 35 mcmol/L LAB CHEMISTRY METHOD 06/23/2025 8:16 AM EDT [facility] Blood Venous blood specimen / Unknown 06/23/2025 7:15 AM EDT 06/23/2025 7:53 AM EDT us Ulysses Judd MD LAB BLOOD ORDERABLES Final Resul t [facility] [address] [place] [address], documented in this encounter Visit Diagnoses Diagnosis Other residential (current) drug therapy documented in this encounter Care Teams Laboratory Animal Care Veterinarian Relationship Specialty Start Date End Date Ulysses Judd MD [address] [place] [address] Dr [address] [place], [place] PCP - General Internal Medicine 03/01/25 documented as of this encounter
--- OUTSIDE RECORDS SUMMARY | 2025-10-18 12:40 | XMS_ITS | Encounter Summary ---
Author Organization [facility] Address [address] [place] [address] Care Team Providers Care Ointment Mill Tender Name Role Phone Ulysses Judd MD Primary Care Provider [phone] Encounter Details Date Type Department Care Team (Late st Contact Info) Description 06/30/[address] [facility] - Main Lab [address] [facility] [place] [address] Ulysses Judd MD [address] [place] [address] [address] [place], [place] Type 2 diabetes mellitus with hyperglycemia (CMS/HCC V24, CMS/[facility] V28); Encounter for screening for other suspected endocrine disorder; Encounter for therapeutic drug level monitoring Social History Tobacco Use Types Packs/Day Years [...] Procedure Name Priority Date/Time Associated Diagnosis Comments VENLAFAXINE Routine 06/30/2025 7:15 AM EDT Type 2 diabetes mellitus with hyperglycemia (CMS/HCC V24, CMS/HCC V28) Encounter for screening for other suspected endocrine disorder Encounter for therapeutic drug level monitoring OLANZAPINE LEVEL Routine 06/30/2025 7:15 AM EDT Type 2 diabetes mellitus with hyperglycemia (CMS/HCC V24, CMS/HCC V28) Encounter for screening for other suspected endocrine disorder Encounter for therapeutic drug level monitoring TOPIRAMATE LEVEL Routine 06/30/2025 7:15 AM EDT Type 2 diabetes mellitus with hyperglycemia (CMS/HCC V24, CMS/HCC V28) Encounter for screening for other suspected endocrine disorder Encounter for therapeutic drug level monitoring COMPLETE BLOOD COUNT Routine 06/30/2025 7:15 AM EDT Type 2 diabetes mellitus with hyperglycemia ([facility] V24, [facility] V28) Encounter for screening for other suspected endocrine disorder Encounter for therapeutic drug level monitoring THYROID STIMULATING HORMONE Routine 06/30/2025 7:15 AM EDT Type 2 diabetes mellitus with hyperglycemia ([facility] V24, [facility] V28) Encounter for screening for other suspected endocrine disorder Encounter for therapeutic drug level monitoring AMMONIA Routine 06/30/2025 7:15 AM EDT Type 2 diabetes mellitus with hyperglycemia ([facility] V24, [facility] V28) Encounter for screening for other suspected endocrine disorder Encounter for therapeutic drug level monitoring VALPROIC ACID LEVEL, TOTAL Routine 06/30/2025 7:15 AM EDT Type 2 diabetes mellitus with hyperglycemia ([facility] V24, [facility] V28) Encounter for screening for other suspected endocrine disorder Encounter for therapeutic drug level monitoring COMPREHENSIVE METABOLIC PANEL Routine 06/30/2025 7:15 AM EDT Type 2 diabetes mellitus with hyperglycemia ([facility] V24, [facility] V28) Encounter for screening for other suspected endocrine disorder Encounter for therapeutic drug level monitoring documented in this encounter Results * (ABNORMAL) Venlafaxine (06/30/2025 7:15 AM EDT) [facility] Venlafaxine Serum/Plasma 23.2 ng/mL 07/09/2025 9:47 AM EDT [facility] O-Desmethylvenlafax ine S/P 131.9 ng/mL 07/09/2025 9:47 AM EDT [facility] Total Venlafaxine and Metabolite S/P 155.1(L) 195.0 - 400.0 ng/mL 07/09/2025 9:47 AM EDT [facility] Comment: INTERPRETIVE INFORMATION: Venlafaxine and Metabolite, Serum or Plasma Therapeutic range (Venlafaxine and o-Desmethylvenlafaxine) .............................................195-400 ng/mL Toxic range (Venlafaxine and o-Desmethylvenlafaxine) ........................Greater than or equal to 800 ng/mL The therapeutic range is based on serum pre-dose (trough) draw at steady-state concentration. Adverse effects to venlafaxine therapy may include nausea, vomiting, dizziness, tremor and blurred vision. This test was developed and its performance characteristics determined by [facility]. It has not been cleared or approved by the [place] Food and Drug Administration. This test was performed in a CLIA certified laboratory and is intended for clinical purposes. Performed By: [facility] [address] [place] [id number] Sap Analyst: Russ Alfredo MD, PhD CLIA Number: [id number] Blood Venous blood specimen / Unknown 06/30/2025 7:15 AM EDT 06/30/2025 8:21 AM EDT us Ulysses Judd MD LAB BLOOD ORDERABLES Final Resul t [facility] [address] [place] [address] * Topiramate level (06/30/2025 7:15 AM EDT) [facility] Signature Topiramate 2.6 2.0 - 20.0 ug/mL 07/03/2025 7:[address] [facility] Comment: If applicable, any drug confirmation testing reported here was developed and the performance characteristics determined by [facility]. This confirmation testing has not been cleared or approved by the FDA. The laboratory is regulated under CLIA as qualified to perform high-complexity testing. This test is used for patient testing purposes. It should not be regarded as investigational or for research. Test performed at [facility], [address], [place] [address] Smiley Tsang MD, PhD - Purchasing Director Blood Venous blood specimen / Unknown 06/30/2025 7:15 AM EDT 06/30/2025 8:21 AM EDT us Ulysses Judd MD LAB BLOOD ORDERABLES Final Resul t Performing Organization Address City/[facility]/ZIP Co de Phone Number [facility] [address] [place] [address] * Olanzapine level (06/30/2025 7:15 AM EDT) Pathologist [facility] Olanzapine (Zyprexa), Quant 52.2 5.0 - 75.0 ng/mL 07/06/2025 11:29 AM EDT [facility] Comment: Reference range for steady-state trough concentration for patients receiving 5 to 10 mg per day. Steady- state is reached in one week after the start of therapy. This test was developed and its analytical performance characteristics have been determined by [facility]. It has not been cleared or approved by the FDA. This assay has been validated pursuant to the CLIA regulations and is used for clinical purposes. TEST PERFORMED AT: [facility] [address] [address] RUI ROMERO MD Blood Venous blood specimen / Unknown 06/30/2025 7:15 AM EDT 06/30/2025 8:21 AM EDT us Ulysses Judd MD LAB BLOOD ORDERABLES Final Resul t Performing Organization Address City/[facility]/ZIP Co de Phone Number [facility] [address] [place] [address] * Valproic acid level, total (06/30/2025 7:15 AM EDT) Pathologist [facility] Valproic Acid, Total 90 50 - 100 mcg/mL LAB CHEMISTRY METHOD 06/30/2025 8:49 AM EDT [facility] Blood Venous blood specimen / Unknown 06/30/2025 7:15 AM EDT 06/30/2025 8:21 AM EDT us Ulysses Judd MD LAB BLOOD ORDERABLES Final Resul t Performing Organization Address [facility] de Phone Number [facility] [address] [place] [address], [place] [phone] * (ABNORMAL) Ammonia (06/30/2025 7:15 AM EDT) Ammonia 81(H) 11 - 35 mcmol/L LAB CHEMISTRY METHOD 06/30/2025 8:47 AM EDT [facility] Blood Venous blood specimen / Unknown 06/30/2025 7:15 AM EDT 06/30/2025 8:21 AM EDT us Ulysses Judd MD LAB BLOOD ORDERABLES Final Resul t Performing Organization Address [facility] de Phone Number [facility] [address] [place] [address], [place] [phone] * Thyroid stimulating hormone (06/30/2025 7:15 AM EDT) Pathologist [facility] TSH 1.48 0.40 - 4.00 mcIU/mL LAB CHEMISTRY METHOD 06/30/2025 9:26 AM EDT [facility] Blood Venous blood specimen / Unknown 06/30/2025 7:15 AM EDT 06/30/2025 8:21 AM EDT us Ulysses Judd MD LAB BLOOD ORDERABLES Final Resul t Performing Organization Address [facility] de Phone Number [facility] [address] [place] [address], [place] [phone] * (ABNORMAL) Complete blood count (06/30/2025 7:15 AM EDT) WBC 7.4 4.8 - 10.8 K/mcL LAB HEMETOLOGY METHOD 06/30/2025 8:29 AM [facility] RBC 4.80 3.80 - 4.80 M/mcL LAB HEMETOLOGY METHOD 06/30/2025 8:29 AM [facility] Hemoglobin 11.6 11.5 - 16.0 g/dL LAB HEMETOLOGY METHOD 06/30/2025 8:29 AM [facility] Hematocrit 38.5 35.0 - 47.0 % LAB HEMETOLOGY METHOD 06/30/2025 8:29 AM [facility] MCV 80.4 79.0 - 98.0 FL LAB HEMETOLOGY METHOD 06/30/2025 8:29 AM [facility] MCH 24.2(L) 27.0 - 32.0 pcg LAB HEMETOLOGY METHOD 06/30/2025 8:29 AM [facility] MCHC 30.1(L) 32.0 - 37.0 g/dL LAB HEMETOLOGY METHOD 06/30/2025 8:29 AM [facility] RDW 16.9(H) 11.0 - 15.0 % LAB HEMETOLOGY METHOD 06/30/2025 8:29 AM [facility] Platelets 225 130 - 400 K/mcL LAB HEMETOLOGY METHOD 06/30/2025 8:29 AM [facility] MPV 9.3 7.0 - 11.0 FL LAB HEMETOLOGY METHOD 06/30/2025 8:29 AM [facility] NRBC 0.0 <1.0 % LAB HEMETOLOGY METHOD 06/30/2025 8:29 AM [facility] NRBC Absolute 0.00 <0.10 K/mcL LAB HEMETOLOGY METHOD 06/30/2025 8:29 AM [facility] Blood Venous blood specimen / Unknown 06/30/2025 7:15 AM EDT 06/30/2025 8:21 AM EDT us Ulysses Judd MD LAB BLOOD ORDERABLES Final Resul t [facility] [address] [place] [address], [place] [phone] * (ABNORMAL) Comprehensive metabolic panel (06/30/2025 7:15 AM EDT) Sodium 138 133 - 145 mmol/L LAB CHEMISTRY METHOD 06/30/2025 8:49 AM [facility] Potassium 3.2(L) 3.5 - 5.5 mmol/L LAB CHEMISTRY METHOD 06/30/2025 8:49 AM [facility] Chloride 103 96 - 110 mmol/L LAB CHEMISTRY METHOD 06/30/2025 8:49 AM [facility] CO2 31 21 - 32 mmol/L LAB CHEMISTRY METHOD 06/30/2025 8:49 AM [facility] Anion Gap 4 3 - 11 LAB CHEMISTRY METHOD 06/30/2025 8:49 AM [facility] Glucose 76 70 - 100 mg/dL LAB CHEMISTRY METHOD 06/30/2025 8:49 AM [facility] BUN 9 5 - 25 mg/dL LAB CHEMISTRY METHOD 06/30/2025 8:49 AM [facility] Creatinine 0.55 0.50 - 1.10 mg/dL LAB CHEMISTRY METHOD 06/30/2025 8:49 AM [facility] eGFR 116 >=60 mL/min/1. 73m2 LAB CHEMISTRY METHOD 06/30/2025 8:49 AM [facility] Comment:Calculation based on the Chronic Kidney Disease Epidemiology Collaboration (CKD-EPI) equation refit without adjustment for race. BUN/Creatinine Ratio 16.4 LAB CHEMISTRY METHOD 06/30/2025 8:49 AM [facility] Calcium 8.8 8.5 - 10.5 mg/dL LAB CHEMISTRY METHOD 06/30/2025 8:49 AM [facility] AST (SGOT) 12 10 - 42 unit/L LAB CHEMISTRY METHOD 06/30/2025 8:49 AM [facility] ALT (SGPT) 14 10 - 60 unit/L LAB CHEMISTRY METHOD 06/30/2025 8:49 AM [facility] Alkaline Phosphatase 65 42 - 121 unit/L LAB CHEMISTRY METHOD 06/30/2025 8:49 AM [facility] Total Protein 6.5 6.0 - 8.0 g/dL LAB CHEMISTRY METHOD 06/30/2025 8:49 AM [facility] Albumin 3.2 3.2 - 5.0 g/dL LAB CHEMISTRY METHOD 06/30/2025 8:49 AM [facility] Total Bilirubin 0.2 0.0 - 1.4 mg/dL LAB CHEMISTRY METHOD 06/30/2025 8:49 AM [facility] Blood Venous blood specimen / Unknown 06/30/2025 7:15 AM EDT 06/30/2025 8:21 AM EDT us Ulysses Judd MD LAB BLOOD ORDERABLES Final Resul t [facility] [address] [place] [address], documented in this encounter Visit Diagnoses Diagnosis Type 2 diabetes mellitus with hyperglycemia (CMS/HCC V24, CMS/[facility] V28) Encounter for screening for other suspected endocrine disorder Encounter for therapeutic drug level monitoring documented in this encounter Care Teams Ointment Mill Tender Relationship Specialty Start Date End Date Ulysses Judd MD [address] [place] [address] Dr Vik Rothman [place] PCP - General Internal Medicine 03/01/25 documented as of this encounter
--- OUTSIDE RECORDS SUMMARY | 2025-10-18 12:40 | XMS_ITS | Encounter Summary ---
Author Organization [facility] Address [address] [place] [address] Care Team Providers Care Journalism Professor Name Role Phone Ulysses Judd MD Primary Care Provider [phone] Encounter Details Date Type Department Care Team (Late st Contact Info) Description 07/03/2025 Lab Requisition [facility] - Main Lab [address] [facility] [place] [address] Ulysses Judd MD [address] [place] [address] Dr [address] [place], [place] Encounter for therapeutic drug level monitoring Social [...] Procedure Name Priority Date/Time Associated Diagnosis Comments POTASSIUM Routine 07/03/2025 5:45 AM EDT Encounter for therapeutic drug level monitoring documented in this encounter Results * Potassium (07/03/2025 5:45 AM EDT) Potassium 3.6 3.5 - 5.5 mmol/L LAB CHEMISTRY METHOD 07/03/2025 7:37 AM EDT [facility] Blood Venous blood specimen / Unknown 07/03/2025 5:45 AM EDT 07/03/2025 6:37 AM EDT us Ulysses Judd MD LAB BLOOD ORDERABLES Final [facility]ul t [facility] LAB [address] [place] [address], documented in this encounter Visit Diagnoses Diagnosis Encounter for therapeutic drug level monitoring documented in this encounter Care Teams Journalism Professor Relationship Specialty Start Date End Date Ulysses Judd MD [address] [place] [address] Dr [address] [place], [place] PCP - General Internal Medicine 03/01/25 documented as of this encounter
--- OUTSIDE RECORDS SUMMARY | 2025-10-18 12:40 | XMS_ITS | Encounter Summary ---
Author Organization [facility] Address [address] [place] [address] Care Team Providers Care Accounting Manager Controller Name Role Phone Ulysses Judd MD Primary Care Provider [phone] Encounter Details Date Type Department Care Team (Late st Contact Info) Description 10/12/2025 Lab Requisition [facility] - Main Lab [address] [place] [address] Ulysses Judd MD [address] [place] [address] Dr [address] [place], [place] Altered mental status, unspecified Social History Tobacco Use Types Packs/Day Years [...] Priority Date/Time Associated Diagnosis Comments AMMONIA Routine 10/12/2025 6:15 AM EST Altered mental status, unspecified documented in this encounter Results * (ABNORMAL) Ammonia (10/12/2025 6:15 AM EST) Ammonia 56(H) 11 - 35 mcmol/L 10/12/2025 7:05 AM EST [facility] Blood Venous blood specimen / Unknown 10/12/2025 6:15 AM EST 10/12/2025 6:42 AM EST us Ulysses Judd MD LAB BLOOD ORDERABLES Final Resul t [facility] [address] [place] [address], documented in this encounter Visit Diagnoses Diagnosis Altered mental status, unspecified documented in this encounter Care Teams Accounting Manager Controller Relationship Specialty Start Date End Date Ulysses Judd MD [address] [place] [address] Dr [address] [place] PCP - General Internal Medicine 03/01/25 documented as of this encounter
--- OUTSIDE RECORDS SUMMARY | 2025-10-18 12:40 | XMS_ITS | Encounter Summary ---
Author Organization [facility] Address [address] [place] [address] Care Team Providers Care Demo Specialist Name Role Phone Ulysses Judd MD Primary Care Provider [phone] Encounter Details Date Type Department Care Team (Late st Contact Info) Description 03/01/2025 Lab Requisition [facility] - Main Lab [address] [facility] [place] [address] Ulysses Judd MD [address] [place] [address] Dr [address] [place], [place] Type 2 diabetes mellitus with hyperglycemia (CMS/HCC V24, CMS/HCC V28); Hyperlipidemia, unspecified Social History Tobacco Use Types Packs/Day [...] Procedure Name Priority Date/Time Associated Diagnosis Comments LIPID PANEL WITH REFLEX TO DIRECT LDL Routine 03/01/2025 7:03 AM EDT Type 2 diabetes mellitus with hyperglycemia (CMS/HCC V24, CMS/HCC V28) Hyperlipidemia, unspecified CBC WITH AUTO DIFFERENTIAL Routine 03/01/2025 7:03 AM EDT Type 2 diabetes mellitus with hyperglycemia (CMS/HCC V24, CMS/HCC V28) Hyperlipidemia, unspecified LAVENDER - EDTA Routine 03/01/2025 7:03 AM EDT Type 2 diabetes mellitus with hyperglycemia (CMS/HCC V24, CMS/HCC V28) Hyperlipidemia, unspecified CBC AND DIFFERENTIAL Routine 03/01/2025 7:03 AM EDT Type 2 diabetes mellitus with hyperglycemia ([facility] V24, [facility] V28) Hyperlipidemia, unspecified THYROID STIMULATING HORMONE Routine 03/01/2025 7:03 AM EDT Type 2 diabetes mellitus with hyperglycemia ([facility] V24, CMS/[facility] V28) Hyperlipidemia, unspecified HEMOGLOBIN A1C Routine 03/01/2025 7:03 AM EDT Type 2 diabetes mellitus with hyperglycemia ([facility] V24, CMS/[facility] V28) Hyperlipidemia, unspecified AMMONIA Routine 03/01/2025 7:03 AM EDT Type 2 diabetes mellitus with hyperglycemia (CMS/[facility] V24, CMS/[facility] V28) Hyperlipidemia, unspecified VALPROIC ACID LEVEL, TOTAL Routine 03/01/2025 7:03 AM EDT Type 2 diabetes mellitus with hyperglycemia ([facility] V24, CMS/[facility] V28) Hyperlipidemia, unspecified COMPREHENSIVE METABOLIC PANEL Routine 03/01/2025 7:03 AM EDT Type 2 diabetes mellitus with hyperglycemia ([facility] V24, CMS/[facility] V28) Hyperlipidemia, unspecified documented in this encounter Results * Lavender tube (03/01/2025 7:03 AM EDT) Extra Tube Hold for add-ons. 03/01/2025 9:01 AM EDT [facility] Comment:Auto resulted. Blood Venous blood specimen / Unknown 03/01/2025 7:03 AM EDT 03/01/2025 7:48 AM EDT us Ulysses Judd MD LAB BLOOD ORDERABLES Final Resul t [facility] [address] [place] [address], [place] [phone] * (ABNORMAL) CBC auto differential (03/01/2025 7:03 AM EDT) [facility] WBC 8.9 4.8 - 10.8 K/mcL LAB HEMETOLOGY METHOD 03/01/2025 8:01 AM [facility] RBC 4.60 3.80 - 4.80 M/mcL LAB HEMETOLOGY METHOD 03/01/2025 8:01 AM [facility] Hemoglobin 11.1(L) 11.5 - 16.0 g/dL LAB HEMETOLOGY METHOD 03/01/2025 8:01 AM [facility] Hematocrit 39.0 35.0 - 47.0 % LAB HEMETOLOGY METHOD 03/01/2025 8:01 AM [facility] MCV 85.7 79.0 - 98.0 FL LAB HEMETOLOGY METHOD 03/01/2025 8:01 AM [facility] MCH 24.4(L) 27.0 - 32.0 pcg LAB HEMETOLOGY METHOD 03/01/2025 8:01 AM [facility] MCHC 28.5(L) 32.0 - 37.0 g/dL LAB HEMETOLOGY METHOD 03/01/2025 8:01 AM [facility] RDW 17.2(H) 11.0 - 15.0 % LAB HEMETOLOGY METHOD 03/01/2025 8:01 AM [facility] Platelets 322 130 - 400 K/mcL LAB HEMETOLOGY METHOD 03/01/2025 8:01 AM [facility] MPV 8.9 7.0 - 11.0 FL LAB HEMETOLOGY METHOD 03/01/2025 8:01 AM [facility] NRBC 0.2 <1.0 % LAB HEMETOLOGY METHOD 03/01/2025 8:01 AM [facility] NRBC Absolute 0.02 <0.10 K/mcL LAB HEMETOLOGY METHOD 03/01/2025 8:01 AM [facility] Neutrophils Relative 60.9 % LAB HEMETOLOGY METHOD 03/01/2025 8:01 AM [facility] Lymphocytes Relative 29.5 % LAB HEMETOLOGY METHOD 03/01/2025 8:01 AM [facility] Monocytes Relative 6.0 % LAB HEMETOLOGY METHOD 03/01/2025 8:01 AM [facility] Eosinophils Relative 1.8 % LAB HEMETOLOGY METHOD 03/01/2025 8:01 AM [facility] Basophils Relative 0.3 % LAB HEMETOLOGY METHOD 03/01/2025 8:01 AM [facility] Immature Granulocytes Relative 1.5 % LAB HEMETOLOGY METHOD 03/01/2025 8:01 AM [facility] Neutrophils Absolute 5.44 1.50 - 7.00 K/mcL LAB HEMETOLOGY METHOD 03/01/2025 8:01 AM [facility] Lymphocytes Absolute 2.63 1.00 - 5.00 K/mcL LAB HEMETOLOGY METHOD 03/01/2025 8:01 AM [facility] Monocytes Absolute 0.54 0.20 - 1.00 K/mcL LAB HEMETOLOGY METHOD 03/01/2025 8:01 AM [facility] Eosinophils Absolute 0.16 0.00 - 0.50 K/mcL LAB HEMETOLOGY METHOD 03/01/2025 8:01 AM [facility] Basophils Absolute 0.03 0.00 - 0.20 K/mcL LAB HEMETOLOGY METHOD 03/01/2025 8:01 AM [facility] Immature Granulocytes Absolute 0.13(H) 0.00 - 0.03 K/mcL LAB HEMETOLOGY METHOD 03/01/2025 8:01 AM [facility] Blood Venous blood specimen / Unknown 03/01/2025 7:03 AM EDT 03/01/2025 7:48 AM EDT us Ulysses Judd MD LAB BLOOD ORDERABLES Final Resul t Performing Organization Address City/[facility]/ZIP Co de Phone Number [facility] [address] [place] [address], [place] [phone] * Thyroid stimulating hormone (03/01/2025 7:03 AM EDT) TSH 2.04 0.40 - 4.00 mcIU/mL LAB CHEMISTRY METHOD 03/01/2025 9:21 AM EDT [facility] Blood Venous blood specimen / Unknown 03/01/2025 7:03 AM EDT 03/01/2025 7:48 AM EDT us Ulysses Judd MD LAB BLOOD ORDERABLES Final Resul t Performing Organization Address [facility]/ZIP Co de Phone Number [facility] [address] [place] [address], [place] [phone] * (ABNORMAL) Hemoglobin A1c (03/01/2025 7:03 AM EDT) Hemoglobin A1C 7.2(H) <6.5 % LAB CHEMISTRY METHOD 03/01/2025 10:51 AM EDT [facility] Mean Bld Glu Estim. 160 mg/dL LAB CHEMISTRY METHOD 03/01/2025 10:51 AM EDT [facility] Blood Venous blood specimen / Unknown 03/01/2025 7:03 AM EDT 03/01/2025 7:48 AM EDT us Ulysses Judd MD LAB BLOOD ORDERABLES Final Resul t Performing Organization Address City/[facility]/ZIP Co de Phone Number [facility] [address] [place] [address], [place] [phone] * (ABNORMAL) Ammonia (03/01/2025 7:03 AM EDT) Ammonia 78(H) 11 - 35 mcmol/L LAB CHEMISTRY METHOD 03/01/2025 8:12 AM EDT [facility] Blood Venous blood specimen / Unknown 03/01/2025 7:03 AM EDT 03/01/2025 7:48 AM EDT us Ulysses Judd MD LAB BLOOD ORDERABLES Final Resul t Performing Organization Address [facility]/ZIP Co de Phone Number [facility] [address] [place] [address], [place] [phone] * Valproic acid level, total (03/01/2025 7:03 AM EDT) Pathologist [facility] Valproic Acid, Total 92 50 - 100 mcg/mL LAB CHEMISTRY METHOD 03/01/2025 8:37 AM EDT [facility] Blood Venous blood specimen / Unknown 03/01/2025 7:03 AM EDT 03/01/2025 7:48 AM EDT us Ulysses Judd MD LAB BLOOD ORDERABLES Final Resul t Performing Organization Address [facility]/ZIP Co de Phone Number [facility] [address] [place] [address], [place] [phone] * (ABNORMAL) Lipid panel with reflex to direct LDL (03/01/2025 7:03 AM EDT) Pathologist [facility] Cholesterol 173 0 - 200 mg/dL LAB CHEMISTRY METHOD 03/01/2025 8:37 AM EDT [facility] Triglycerides 243(H) 0 - 150 mg/dL LAB CHEMISTRY METHOD 03/01/2025 8:37 AM EDT [facility] HDL 46 >=40 mg/dL LAB CHEMISTRY METHOD 03/01/2025 8:37 AM EDT [facility] LDL Calculated 78 0 - 100 mg/dL LAB CHEMISTRY METHOD 03/01/2025 8:37 AM EDT [facility] VLDL Cholesterol [place] 48.6 mg/dL LAB CHEMISTRY METHOD 03/01/2025 8:37 AM EDT [facility] Non HDL Chol. (LDL+VLDL) 127 <145 mg/dL LAB CHEMISTRY METHOD 03/01/2025 8:37 AM EDT [facility] Chol/HDL Ratio 3.8 0.0 - 4.4 LAB CHEMISTRY METHOD 03/01/2025 8:37 AM T [facility] Blood Venous blood specimen / Unknown 03/01/2025 7:03 AM EDT 03/01/2025 7:48 AM EDT us Ulysses Judd MD LAB BLOOD ORDERABLES Final Resul t [facility] [address] [place] [address], [place] [phone] * (ABNORMAL) Comprehensive metabolic panel (03/01/2025 7:03 AM EDT) Sodium 137 133 - 145 mmol/L LAB CHEMISTRY METHOD 03/01/2025 8:57 AM [facility] Potassium 4.2 3.5 - 5.5 mmol/L LAB CHEMISTRY METHOD 03/01/2025 8:57 AM [facility] Chloride 103 96 - 110 mmol/L LAB CHEMISTRY METHOD 03/01/2025 8:57 AM [facility] CO2 27 21 - 32 mmol/L LAB CHEMISTRY METHOD 03/01/2025 8:57 AM [facility] Anion Gap 7 3 - 11 LAB CHEMISTRY METHOD 03/01/2025 8:57 AM [facility] Glucose 125(H) 70 - 100 mg/dL LAB CHEMISTRY METHOD 03/01/2025 8:57 AM [facility] BUN 5 5 - 25 mg/dL LAB CHEMISTRY METHOD 03/01/2025 8:57 AM [facility] Creatinine 0.56 0.50 - 1.10 mg/dL LAB CHEMISTRY METHOD 03/01/2025 8:57 AM [facility] eGFR 116 >=60 mL/min/1. 73m2 LAB CHEMISTRY METHOD 03/01/2025 8:57 AM [facility] Comment:Calculation based on the Chronic Kidney Disease Epidemiology Collaboration (CKD-EPI) equation refit without adjustment for race. BUN/Creatinine Ratio 8.9 LAB CHEMISTRY METHOD 03/01/2025 8:57 AM [facility] Calcium 8.8 8.5 - 10.5 mg/dL LAB CHEMISTRY METHOD 03/01/2025 8:57 AM [facility] AST (SGOT) 8(L) 10 - 42 unit/L LAB CHEMISTRY METHOD 03/01/2025 8:57 AM [facility] ALT (SGPT) 12 10 - 60 unit/L LAB CHEMISTRY METHOD 03/01/2025 8:57 AM [facility] Alkaline Phosphatase 79 42 - 121 unit/L LAB CHEMISTRY METHOD 03/01/2025 8:57 AM [facility] Total Protein 7.3 6.0 - 8.0 g/dL LAB CHEMISTRY METHOD 03/01/2025 8:57 AM [facility] Albumin 3.2 3.2 - 5.0 g/dL LAB CHEMISTRY METHOD 03/01/2025 8:57 AM [facility] Total Bilirubin 0.1 0.0 - 1.4 mg/dL LAB CHEMISTRY METHOD 03/01/2025 8:57 AM [facility] Blood Venous blood specimen / Unknown 03/01/2025 7:03 AM EDT 03/01/2025 7:48 AM EDT Ulysses Judd MD LAB BLOOD ORDERABLES Final Resul t [facility] ([facility] [[email or web address] [address] [place] [address], documented in this encounter Visit Diagnoses Diagnosis Type 2 diabetes mellitus with hyperglycemia (CMS/HCC V24, CMS/HCC V28) Hyperlipidemia, unspecified documented in this encounter Care Teams Demo Specialist Relationship Specialty Start Date End Date Ulysses Judd MD [address] [place] [address] Dr [address] [place], [place] PCP - General Internal Medicine 03/01/25 documented as of this encounter
--- OUTSIDE RECORDS SUMMARY | 2025-10-18 12:40 | XMS_ITS | Encounter Summary ---
Author Organization [facility] Address [address] [place] [address] Care Team Providers Care Commercial Account Officer Name Role Phone Ulysses Judd MD Primary Care Provider [phone] Encounter Details Date Type Department Care Team (Late st Contact Info) Description 07/14/2025 Lab Requisition [facility] - Main Lab [address] [place] [address] Ulysses Judd MD [address] [place] [address] Dr [address] [place], [place] Encounter for therapeutic drug level monitoring [...] Priority Date/Time Associated Diagnosis Comments AMMONIA Routine 07/14/2025 7:10 AM EDT Encounter for therapeutic drug level monitoring documented in this encounter Results * (ABNORMAL) Ammonia (07/14/2025 7:10 AM EDT) Ammonia 70(H) 11 - 35 mcmol/L LAB CHEMISTRY METHOD 07/14/2025 8:11 AM EDT [facility] ([facility]) [facility] Blood Venous blood specimen / Unknown 07/14/2025 7:10 AM EDT 07/14/2025 7:42 AM EDT us Ulysses Judd MD LAB BLOOD ORDERABLES Final Resul t [facility] ([facility] [address] [place] [address], documented in this encounter Visit Diagnoses Diagnosis Encounter for therapeutic drug level monitoring documented in this encounter Care Teams Commercial Account Officer Relationship Specialty Start Date End Date Ulysses Judd MD [address] [place] [address] Dr [address] [place], [place] PCP - General Internal Medicine 03/01/25 documented as of this encounter
--- OUTSIDE RECORDS SUMMARY | 2025-10-18 12:40 | XMS_ITS | Clinical Summary ---
Author Organization [facility] Address [address] [place] [address] Phone Care Team Providers Care Rubber Covering Machine Operator Name Role Phone Ulysses Judd MD Primary Care Provider Encounters Date Type Department Care Team Description 10/12/2025 Lab Requisition [facility] Lab [address] [place] [address] Ulysses Judd MD Altered mental status, unspecified 08/31/2025 Lab Requisition [facility] [address] [place] [address] Ulysses Judd MD Hyperlipidemia, unspecified; Encounter for screening for other suspected endocrine disorder; Type 2 diabetes mellitus with hyperglycemia ([facility] V24, [facility] V28); Encounter for therapeutic drug level monitoring from Last 3 Months Surgical History Surgery Date Site/Laterality Comments TONSILLECTOMY PROCEDURE:TONSILLECTOMY ESOPHAGOGASTRODUODENOSCOPY W/ PEG 10/09/2020 N/A PROCEDURE:ESOPHAGOGASTRO DUODENOSCOPY W/ PEG;COMMENT:Procedure: UPPER ENDOSCOPY-EGD WITH PEG/ 24 pull; Surgeon: Davide Galeano MD; Location: ENDOSCOPY; Service: General; Laterality: N/A; BRONCHOSCOPY RIGID / FLEXIBLE 10/09/2020 N/A PROCEDURE:BRONCHOSCOPY RIGID / FLEXIBLE;COMMENT:Procedu re: BRONCHOSCOPY DIAGNOSTIC/trach; Surgeon: Davide Galeano MD; Location: ENDOSCOPY; Service: General; Laterality: N/A; Medical History Medical History Date Comments Bipolar 1 disorder ([facility] V24, [facility] V28) DX:Bipolar 1 disorder (HCC) Mood disorder ([facility] V24) DX:M ood disorder (HCC) Social History Tobacco Use Types Packs/Day Years [...] on file Sexual Orientation Not on file Plan of Treatment Health Maintenance Due Date Last Done Comments Breast Cancer Screening 1980 Colorectal Cancer Screening: Colonoscopy 1980 Diabetes: Annual Foot Exam 1990 Diabetes: Annual Retina Eye Exam 1990 Hepatitis A Vaccines (1 of 2 - Risk 2-dose series) 1999 Hepatitis B Vaccines (1 of 3 - 19+ 3-dose series) 1999 Pneumococcal Vaccine: Pediatrics (0 to 5 Years) and At-Risk Patients (6 to 49 Years) (1 of 2 - PCV) 1999 Cervical Cancer Screening: Pap Smear 2001 HPV Vaccines (1 - 3-dose SCDM series) 2007 Depression Screening 10/26/2024 Diabetes: Annual Urine Albumin-Creatinine Ratio (uACR) 03/06/2025 HIV Screening 03/06/2025 Social Influencers of Health Screening 03/06/2025 COVID-19 Vaccine ( season) 2025 12/13/2020, 11/22/2020 Influenza Vaccine (#1) 2025 10/11/2021 Diabetes: Blood Sugar Control Test (HGBA1C) 02/28/2026 08/31/2025, 05/31/2025, 03/01/2025, Additional history exists Diabetes: Annual GFR (Glomerular Filtration Rate) 08/31/2026 08/31/2025, 06/30/2025, 05/31/2025, Additional history exists Hypertension/CHF/CAD Annual BMP Blood Test 08/31/2026 08/31/2025, 06/30/2025, 05/31/2025, Additional history exists DTaP,Tdap,and Td Vaccines (2 - Td or Tdap) 04/03/2027 04/03/2017 Cholesterol Screening (Lipid Panel) 08/31/2030 08/31/2025, 03/01/2025, 02/08/2025, Additional history exists RSV Immunization Adult Patients (1 - 1-dose 75+ series) 2055 Hepatitis C Screening Completed 06/06/2020 HIB Vaccines Aged Out No longer eligi ble based on patient's age to complete this topic IPV Vaccines Aged Out No longer eligi ble based on patient's age to complete this topic MMR Vaccines Aged Out No longer eligi ble based on patient's age to complete this topic Meningococcal ACWY Vaccine Aged Out N o longer eligible based on patient's age to complete this topic Meningococcal B Vaccine Aged Out No l onger eligible based on patient's age to complete this topic RSV Immunization Patients Under 20 months Aged Out No longer eligible based on patient's age to complete this topic Varicella Vaccines Aged Out No longer eligible based on patient's age to complete this topic Procedures Procedure Name Priority Date/Time Associated Diagnosis Comments AMMONIA Routine 10/12/2025 6:15 AM EST Altered mental status, unspecified SST - GOLD Routine 08/31/2025 6:50 AM EST Hyperlipidemia, unspecified Encounter for screening for other suspected endocrine disorder Type 2 diabetes mellitus with hyperglycemia ([facility] V24, [facility] V28) Encounter for therapeutic drug level monitoring CBC WITH AUTO DIFFERENTIAL Routine 08/31/2025 6:50 AM EST Hyperlipidemia, unspecified Encounter for screening for other suspected endocrine disorder Type 2 diabetes mellitus with hyperglycemia ([facility]/HCC V24, [facility] V28) Encounter for therapeutic drug level monitoring THYROID STIMULATING HORMONE Routine 08/31/2025 6:50 AM EST Hyperlipidemia, unspecified Encounter for screening for other suspected endocrine disorder Type 2 diabetes mellitus with hyperglycemia (CMS/HCC V24, [facility] V28) Encounter for therapeutic drug level monitoring HEMOGLOBIN A1C Routine 08/31/2025 6:50 AM EST Hyperlipidemia, unspecified Encounter for screening for other suspected endocrine disorder Type 2 diabetes mellitus with hyperglycemia (CMS/HCC V24, [facility] V28) Encounter for therapeutic drug level monitoring CBC AND DIFFERENTIAL Routine 08/31/2025 6:50 AM EST Hyperlipidemia, unspecified Encounter for screening for other suspected endocrine disorder Type 2 diabetes mellitus with hyperglycemia (CMS/HCC V24, [facility] V28) Encounter for therapeutic drug level monitoring AMMONIA Routine 08/31/2025 6:50 AM EST Hyperlipidemia, unspecified Encounter for screening for other suspected endocrine disorder Type 2 diabetes mellitus with hyperglycemia ([facility] V24, [facility] V28) Encounter for therapeutic drug level monitoring VALPROIC ACID LEVEL, TOTAL Routine 08/31/2025 6:50 AM EST Hyperlipidemia, unspecified Encounter for screening for other suspected endocrine disorder Type 2 diabetes mellitus with hyperglycemia ([facility] V24, [facility] V28) Encounter for therapeutic drug level monitoring LIPID PANEL WITH REFLEX TO DIRECT LDL Routine 08/31/2025 6:50 AM EST Hyperlipidemia, unspecified Encounter for screening for other suspected endocrine disorder Type 2 diabetes mellitus with hyperglycemia ([facility] V24, [facility] V28) Encounter for therapeutic drug level monitoring COMPREHENSIVE METABOLIC PANEL Routine 08/31/2025 6:50 AM EST Hyperlipidemia, unspecified Encounter for screening for other suspected endocrine disorder Type 2 diabetes mellitus with hyperglycemia ([facility] V24, [facility] V28) Encounter for therapeutic drug level monitoring from Last 3 Months Results * (ABNORMAL) Ammonia (10/12/2025 6:15 AM EST) Only the most recent of2 resultswithin the time period is included. Pathologist [facility] Ammonia 56(H) 11 - 35 mcmol/L 10/12/2025 7:05 AM EST [facility] Blood Venous blood specimen / Unknown 10/12/2025 6:15 AM EST 10/12/2025 6:42 AM EST us Ulysses Judd MD LAB BLOOD ORDERABLES Final Resul t [facility] [address] [place] [address], [place] [phone] * SST tube (08/31/2025 6:50 AM EST) Pathologist [facility] Extra Tube Hold for add-ons. 08/31/2025 10:01 AM EST [facility] Comment:Auto resulted. Blood Venous blood specimen / Unknown 08/31/2025 6:50 AM EST 08/31/2025 8:13 AM EST us Ulysses Judd MD LAB BLOOD ORDERABLES Final Resul t [facility] [address] [place] [address], [place] [phone] * Lipid panel with reflex to direct LDL (08/31/2025 6:50 AM EST) Pathologist [facility] Cholesterol 144 0 - 200 mg/dL LAB CHEMISTRY METHOD 08/31/2025 8:54 AM [facility] Triglycerides 149 0 - 150 mg/dL LAB CHEMISTRY METHOD 08/31/2025 8:54 AM [facility] HDL 44 >=40 mg/dL LAB CHEMISTRY METHOD 08/31/2025 8:54 AM [facility] LDL Calculated 70 0 - 100 mg/dL LAB CHEMISTRY METHOD 08/31/2025 8:54 AM [facility] Comment:Estimated LDL Calcul ated using equation: Total cholesterol - HDL cholesterol - (Triglycerides/5) VLDL Cholesterol [place] 29.8 mg/dL LAB CHEMISTRY METHOD 08/31/2025 8:54 AM [facility] Non HDL Chol. (LDL+VLDL) 100 <145 mg/dL LAB CHEMISTRY METHOD 08/31/2025 8:54 AM [facility] Chol/HDL Ratio 3.3 0.0 - 4.4 LAB CHEMISTRY METHOD 08/31/2025 8:54 AM [facility] Blood Venous blood specimen / Unknown 08/31/2025 6:50 AM EST 08/31/2025 8:13 AM EST us Ulysses Judd MD LAB BLOOD ORDERABLES Final Resul t [facility] [address] [place] [address], * (ABNORMAL) CBC auto differential (08/31/2025 6:50 AM EST) WBC 8.8 4.8 - 10.8 K/mcL LAB HEMETOLOGY METHOD 08/31/2025 8:23 AM [facility] RBC 4.30 3.80 - 4.80 M/mcL LAB HEMETOLOGY METHOD 08/31/2025 8:23 AM [facility] Hemoglobin 10.9(L) 11.5 - 16.0 g/dL LAB HEMETOLOGY METHOD 08/31/2025 8:23 AM [facility] Hematocrit 35.4 35.0 - 47.0 % LAB HEMETOLOGY METHOD 08/31/2025 8:23 AM [facility] MCV 81.6 79.0 - 98.0 FL LAB HEMETOLOGY METHOD 08/31/2025 8:23 AM [facility] MCH 25.1(L) 27.0 - 32.0 pcg LAB HEMETOLOGY METHOD 08/31/2025 8:23 AM [facility] MCHC 30.8(L) 32.0 - 37.0 g/dL LAB HEMETOLOGY METHOD 08/31/2025 8:23 AM [facility] RDW 18.9(H) 11.0 - 15.0 % LAB HEMETOLOGY METHOD 08/31/2025 8:23 AM [facility] Platelets 194 130 - 400 K/mcL LAB HEMETOLOGY METHOD 08/31/2025 8:23 AM [facility] MPV 9.1 7.0 - 11.0 FL LAB HEMETOLOGY METHOD 08/31/2025 8:23 AM [facility] NRBC 0.0 <1.0 % LAB HEMETOLOGY METHOD 08/31/2025 8:23 AM [facility] NRBC Absolute 0.00 <0.10 K/mcL LAB HEMETOLOGY METHOD 08/31/2025 8:23 AM [facility] Neutrophils Relative 47.0 % LAB HEMETOLOGY METHOD 08/31/2025 8:23 AM [facility] Lymphocytes Relative 42.6 % LAB HEMETOLOGY METHOD 08/31/2025 8:23 AM [facility] Monocytes Relative 7.7 % LAB HEMETOLOGY METHOD 08/31/2025 8:23 AM [facility] Eosinophils Relative 1.0 % LAB HEMETOLOGY METHOD 08/31/2025 8:23 AM [facility] Basophils Relative 0.2 % LAB HEMETOLOGY METHOD 08/31/2025 8:23 AM [facility] Immature Granulocytes Relative 1.5 % LAB HEMETOLOGY METHOD 08/31/2025 8:23 AM [facility] Neutrophils Absolute 4.13 1.50 - 7.00 K/mcL LAB HEMETOLOGY METHOD 08/31/2025 8:23 AM [facility] Lymphocytes Absolute 3.75 1.00 - 5.00 K/mcL LAB HEMETOLOGY METHOD 08/31/2025 8:23 AM [facility] Monocytes Absolute 0.68 0.20 - 1.00 K/mcL LAB HEMETOLOGY METHOD 08/31/2025 8:23 AM [facility] Eosinophils Absolute 0.09 0.00 - 0.50 K/mcL LAB HEMETOLOGY METHOD 08/31/2025 8:23 AM [facility] Basophils Absolute 0.02 0.00 - 0.20 K/mcL LAB HEMETOLOGY METHOD 08/31/2025 8:23 AM [facility] Immature Granulocytes Absolute 0.13(H) 0.00 - 0.03 K/mcL LAB HEMETOLOGY METHOD 08/31/2025 8:23 AM EST [facility] Blood Venous blood specimen / Unknown 08/31/2025 6:50 AM EST 08/31/2025 8:13 AM EST us Ulysses Judd MD LAB BLOOD ORDERABLES Final Resul t Performing Organization Address City/[facility] Co de Phone Number [facility] [address] [place] [address], [place] [phone] * Thyroid stimulating hormone (08/31/2025 6:50 AM EST) TSH 1.18 0.40 - 4.00 mcIU/mL LAB CHEMISTRY METHOD 08/31/2025 9:26 AM EST [facility] Blood Venous blood specimen / Unknown 08/31/2025 6:50 AM EST 08/31/2025 8:13 AM EST us Ulysses Judd MD LAB BLOOD ORDERABLES Final Resul t Performing Organization Address [facility] de Phone Number [facility] [address] [place] [address], [place] [phone] * Hemoglobin A1c (08/31/2025 6:50 AM EST) Hemoglobin A1C 6.2 <6.5 % LAB CHEMISTRY METHOD 08/31/2025 6:32 PM EST [facility] Mean Bld Glu Estim. 131 mg/dL LAB CHEMISTRY METHOD 08/31/2025 6:32 PM EST [facility] Blood Venous blood specimen / Unknown 08/31/2025 6:50 AM EST 08/31/2025 8:13 AM EST us Ulysses Judd MD LAB BLOOD ORDERABLES Final Resul t Performing Organization Address City/[facility] Co de Phone Number [facility] [address] [place] [address], [place] [phone] * Valproic acid level, total (08/31/2025 6:50 AM EST) [facility] Valproic Acid, Total 99 50 - 100 mcg/mL LAB CHEMISTRY METHOD 08/31/2025 8:54 AM EST [facility] Blood Venous blood specimen / Unknown 08/31/2025 6:50 AM EST 08/31/2025 8:13 AM EST Ulysses Judd MD LAB BLOOD ORDERABLES Final Resul t Performing Organization Address [facility]/State/ZIP Co de Phone Number [facility] [address] [place] [address], [place] [phone] * (ABNORMAL) Comprehensive metabolic panel (08/31/2025 6:50 AM EST) [facility] Sodium 140 133 - 145 mmol/L LAB CHEMISTRY METHOD 08/31/2025 8:54 AM [facility] Potassium 3.9 3.5 - 5.5 mmol/L LAB CHEMISTRY METHOD 08/31/2025 8:54 AM [facility] Chloride 106 96 - 110 mmol/L LAB CHEMISTRY METHOD 08/31/2025 8:54 AM [facility] CO2 28 21 - 32 mmol/L LAB CHEMISTRY METHOD 08/31/2025 8:54 AM [facility] Anion Gap 6 3 - 11 LAB CHEMISTRY METHOD 08/31/2025 8:54 AM [facility] Glucose 71 70 - 100 mg/dL LAB CHEMISTRY METHOD 08/31/2025 8:54 AM [facility] BUN 9 5 - 25 mg/dL LAB CHEMISTRY METHOD 08/31/2025 8:54 AM [facility] Creatinine 0.54 0.50 - 1.10 mg/dL LAB CHEMISTRY METHOD 08/31/2025 8:54 AM [facility] eGFR 116 >=60 mL/min/1. 73m2 LAB CHEMISTRY METHOD 08/31/2025 8:54 AM [facility] Comment:Calculation based on the Chronic Kidney Disease Epidemiology Collaboration (CKD-EPI) equation refit without adjustment for race. BUN/Creatinine Ratio 16.7 LAB CHEMISTRY METHOD 08/31/2025 8:54 AM [facility] Calcium 8.7 8.5 - 10.5 mg/dL LAB CHEMISTRY METHOD 08/31/2025 8:54 AM [facility] AST (SGOT) 6(L) 10 - 42 unit/L LAB CHEMISTRY METHOD 08/31/2025 8:54 AM [facility] ALT (SGPT) 10 10 - 60 unit/L LAB CHEMISTRY METHOD 08/31/2025 8:54 AM [facility] Alkaline Phosphatase 69 42 - 121 unit/L LAB CHEMISTRY METHOD 08/31/2025 8:54 AM [facility] Total Protein 6.3 6.0 - 8.0 g/dL LAB CHEMISTRY METHOD 08/31/2025 8:54 AM [facility] Albumin 2.9(L) 3.2 - 5.0 g/dL LAB CHEMISTRY METHOD 08/31/2025 8:54 AM [facility] Total Bilirubin 0.2 0.0 - 1.4 mg/dL LAB CHEMISTRY METHOD 08/31/2025 8:54 AM [facility] Blood Venous blood specimen / Unknown 08/31/2025 6:50 AM EST 08/31/2025 8:13 AM EST us Ulysses Judd MD LAB BLOOD ORDERABLES Final Resul t [facility] [address] [place] [address], from Last 3 Months Insurance [place]ICA[place] Advance Directives Documents on File Type Date Recorded Patient Supply Coordinator Expl anation Health Care Decision (hx) 11/10/2020 AD NANCY DIRECTIVE Care Teams Rubber Covering Machine Operator Relationship Specialty Start Date End Date Ulysses Judd MD [address] [place] [address] [address] [place], [place] PCP - General Internal Medicine 03/01/25
--- OUTSIDE RECORDS SUMMARY | 2025-10-18 12:40 | XMS_ITS | Encounter Summary ---
Author Organization [facility] Address [address] [place] [address] Care Team Providers Care [employer] Member Name Role Phone Ulysses Judd MD Primary Care Provider [phone] Encounter Details Date Type Department Care Team (Late st Contact Info) Description 08/31/2025 Lab Requisition [facility] - Main Lab [address] [facility] [place] [address] Ulysses Judd MD [address] [place] [address] Dr [address] [place], [place] Hyperlipidemia, unspecified; Encounter for screening for other suspected endocrine disorder; Type 2 diabetes mellitus with hyperglycemia (CMS/[facility] V24, CMS/[facility] V28); Encounter for therapeutic drug level monitoring Social [...] Procedure Name Priority Date/Time Associated Diagnosis Comments SST - GOLD Routine 08/31/2025 6:50 AM EST Hyperlipidemia, unspecified Encounter for screening for other suspected endocrine disorder Type 2 diabetes mellitus with hyperglycemia (CMS/HCC V24, CMS/HCC V28) Encounter for therapeutic drug level monitoring LIPID PANEL WITH REFLEX TO DIRECT LDL Routine 08/31/2025 6:50 AM EST Hyperlipidemia, unspecified Encounter for screening for other suspected endocrine disorder Type 2 diabetes mellitus with hyperglycemia (CMS/HCC V24, CMS/HCC V28) Encounter for therapeutic drug level monitoring CBC WITH AUTO DIFFERENTIAL Routine 08/31/2025 6:50 AM EST Hyperlipidemia, unspecified Encounter for screening for other suspected endocrine disorder Type 2 diabetes mellitus with hyperglycemia (CMS/HCC V24, CMS/HCC V28) Encounter for therapeutic drug level monitoring CBC AND DIFFERENTIAL Routine 08/31/2025 6:50 AM EST Hyperlipidemia, unspecified Encounter for screening for other suspected endocrine disorder Type 2 diabetes mellitus with hyperglycemia (CMS/HCC V24, CMS/HCC V28) Encounter for therapeutic drug level monitoring THYROID STIMULATING HORMONE Routine 08/31/2025 6:50 AM EST Hyperlipidemia, unspecified Encounter for screening for other suspected endocrine disorder Type 2 diabetes mellitus with hyperglycemia (CMS/HCC V24, CMS/HCC V28) Encounter for therapeutic drug level monitoring HEMOGLOBIN A1C Routine 08/31/2025 6:50 AM EST Hyperlipidemia, unspecified Encounter for screening for other suspected endocrine disorder Type 2 diabetes mellitus with hyperglycemia (CMS/HCC V24, CMS/HCC V28) Encounter for therapeutic drug level monitoring AMMONIA Routine 08/31/2025 6:50 AM EST Hyperlipidemia, unspecified Encounter for screening for other suspected endocrine disorder Type 2 diabetes mellitus with hyperglycemia (CMS/HCC V24, CMS/HCC V28) Encounter for therapeutic drug level monitoring VALPROIC ACID LEVEL, TOTAL Routine 08/31/2025 6:50 AM EST Hyperlipidemia, unspecified Encounter for screening for other suspected endocrine disorder Type 2 diabetes mellitus with hyperglycemia (CMS/HCC V24, CMS/HCC V28) Encounter for therapeutic drug level monitoring COMPREHENSIVE METABOLIC PANEL Routine 08/31/2025 6:50 AM EST Hyperlipidemia, unspecified Encounter for screening for other suspected endocrine disorder Type 2 diabetes mellitus with hyperglycemia (CMS/HCC V24, CMS/HCC V28) Encounter for therapeutic drug level monitoring documented in this encounter Results * SST tube (08/31/2025 6:50 AM EST) Extra Tube Hold for add-ons. 08/31/2025 10:01 AM EST [facility] Comment:Auto resulted. Blood Venous blood specimen / Unknown 08/31/2025 6:50 AM EST 08/31/2025 8:13 AM EST us Ulysses Judd MD LAB BLOOD ORDERABLES Final Resul t [facility] [address] [place] [address], * (ABNORMAL) CBC auto differential (08/31/2025 6:50 AM EST) WBC 8.8 4.8 - 10.8 K/mcL LAB HEMETOLOGY METHOD 08/31/2025 8:23 AM [facility] RBC 4.30 3.80 - 4.80 M/mcL LAB HEMETOLOGY METHOD 08/31/2025 8:23 AM [facility] Hemoglobin 10.9(L) 11.5 - 16.0 g/dL LAB HEMETOLOGY METHOD 08/31/2025 8:23 AM [facility] Hematocrit 35.4 35.0 - 47.0 % LAB HEMETOLOGY METHOD 08/31/2025 8:23 AM [facility] MCV 81.6 79.0 - 98.0 FL LAB HEMETOLOGY METHOD 08/31/2025 8:23 AM [facility] MCH 25.1(L) 27.0 - 32.0 pcg LAB HEMETOLOGY METHOD 08/31/2025 8:23 AM [facility] MCHC 30.8(L) 32.0 - 37.0 g/dL LAB HEMETOLOGY METHOD 08/31/2025 8:23 AM [facility] RDW 18.9(H) 11.0 - 15.0 % LAB HEMETOLOGY METHOD 08/31/2025 8:23 AM [facility] Platelets 194 130 - 400 K/mcL LAB HEMETOLOGY METHOD 08/31/2025 8:23 AM [facility] MPV 9.1 7.0 - 11.0 FL LAB HEMETOLOGY METHOD 08/31/2025 8:23 AM [facility] NRBC 0.0 <1.0 % LAB HEMETOLOGY METHOD 08/31/2025 8:23 AM [facility] NRBC Absolute 0.00 <0.10 K/mcL LAB HEMETOLOGY METHOD 08/31/2025 8:23 AM [facility] Neutrophils Relative 47.0 % LAB HEMETOLOGY METHOD 08/31/2025 8:23 AM [facility] Lymphocytes Relative 42.6 % LAB HEMETOLOGY METHOD 08/31/2025 8:23 AM [facility] Monocytes Relative 7.7 % LAB HEMETOLOGY METHOD 08/31/2025 8:23 AM [facility] Eosinophils Relative 1.0 % LAB HEMETOLOGY METHOD 08/31/2025 8:23 AM [facility] Basophils Relative 0.2 % LAB HEMETOLOGY METHOD 08/31/2025 8:23 AM [facility] Immature Granulocytes Relative 1.5 % LAB HEMETOLOGY METHOD 08/31/2025 8:23 AM [facility] Neutrophils Absolute 4.13 1.50 - 7.00 K/mcL LAB HEMETOLOGY METHOD 08/31/2025 8:23 AM [facility] Lymphocytes Absolute 3.75 1.00 - 5.00 K/mcL LAB HEMETOLOGY METHOD 08/31/2025 8:23 AM [facility] Monocytes Absolute 0.68 0.20 - 1.00 K/mcL LAB HEMETOLOGY METHOD 08/31/2025 8:23 AM [facility] Eosinophils Absolute 0.09 0.00 - 0.50 K/mcL LAB HEMETOLOGY METHOD 08/31/2025 8:23 AM EST [facility] Basophils Absolute 0.02 0.00 - 0.20 K/[facility] LAB HEMETOLOGY METHOD 08/31/2025 8:23 AM EST [facility] Immature Granulocytes Absolute 0.13(H) 0.00 - 0.03 K/[facility] LAB HEMETOLOGY METHOD 08/31/2025 8:23 AM [facility] Blood Venous blood specimen / Unknown 08/31/2025 6:50 AM EST 08/31/2025 8:13 AM EST us Ulysses Judd MD LAB BLOOD ORDERABLES Final Resul t Performing Organization Address City/[facility]/ZIP Co de Phone Number [facility] [address] [place] [address], [place] [phone] * Thyroid stimulating hormone (08/31/2025 6:50 AM EST) TSH 1.18 0.40 - 4.00 mcIU/mL LAB CHEMISTRY METHOD 08/31/2025 9:26 AM [facility] Blood Venous blood specimen / Unknown 08/31/2025 6:50 AM EST 08/31/2025 8:13 AM EST us Ulysses Judd MD LAB BLOOD ORDERABLES Final Resul t [facility] [address] [place] [address], [place] [phone] * Hemoglobin A1c (08/31/2025 6:50 AM EST) Hemoglobin A1C 6.2 <6.5 % LAB CHEMISTRY METHOD 08/31/2025 6:32 PM [facility] Mean Bld Glu Estim. 131 mg/dL LAB CHEMISTRY METHOD 08/31/2025 6:32 PM [facility] Blood Venous blood specimen / Unknown 08/31/2025 6:50 AM EST 08/31/2025 8:13 AM EST us Ulysses Judd MD LAB BLOOD ORDERABLES Final Resul t Performing Organization Address [facility] de Phone Number [facility] [address] [place] [address], [place] [phone] * (ABNORMAL) Ammonia (08/31/2025 6:50 AM EST) [facility] Ammonia 82(H) 11 - 35 mcmol/L LAB CHEMISTRY METHOD 08/31/2025 8:49 AM EST [facility] Blood Venous blood specimen / Unknown 08/31/2025 6:50 AM EST 08/31/2025 8:13 AM EST us Ulysses Judd MD LAB BLOOD ORDERABLES Final Resul t Performing Organization Address [facility] de Phone Number [facility] [address] [place] [address], [place] [phone] * Valproic acid level, total (08/31/2025 6:50 AM EST) [facility] Valproic Acid, Total 99 50 - 100 mcg/mL LAB CHEMISTRY METHOD 08/31/2025 8:54 AM EST [facility] Blood Venous blood specimen / Unknown 08/31/2025 6:50 AM EST 08/31/2025 8:13 AM EST us Ulysses Judd MD LAB BLOOD ORDERABLES Final Resul t Performing Organization Address [facility] de Phone Number [facility] [address] [place] [address], [place] [phone] * Lipid panel with reflex to direct LDL (08/31/2025 6:50 AM EST) [facility] Cholesterol 144 0 - 200 mg/dL LAB CHEMISTRY METHOD 08/31/2025 8:54 AM [facility] Triglycerides 149 0 - 150 mg/dL LAB CHEMISTRY METHOD 08/31/2025 8:54 AM [facility] HDL 44 >=40 mg/dL LAB CHEMISTRY METHOD 08/31/2025 8:54 AM [facility] LDL Calculated 70 0 - 100 mg/dL LAB CHEMISTRY METHOD 08/31/2025 8:54 AM [facility] Comment:Estimated LDL Calcul ated using equation: Total cholesterol - HDL cholesterol - (Triglycerides/5) VLDL Cholesterol [place] 29.8 mg/dL LAB CHEMISTRY METHOD 08/31/2025 8:54 AM [facility] Non HDL Chol. (LDL+VLDL) 100 <145 mg/dL LAB CHEMISTRY METHOD 08/31/2025 8:54 AM [facility] Chol/HDL Ratio 3.3 0.0 - 4.4 LAB CHEMISTRY METHOD 08/31/2025 8:54 AM [facility] Blood Venous blood specimen / Unknown 08/31/2025 6:50 AM EST 08/31/2025 8:13 AM EST us Ulysses Judd MD LAB BLOOD ORDERABLES Final Resul t [facility] [address] [place] [address], * (ABNORMAL) Comprehensive metabolic panel (08/31/2025 6:50 AM EST) Sodium 140 133 - 145 mmol/L LAB CHEMISTRY METHOD 08/31/2025 8:54 AM [facility] Potassium 3.9 3.5 - 5.5 mmol/L LAB CHEMISTRY METHOD 08/31/2025 8:54 AM [facility] Chloride 106 96 - 110 mmol/L LAB CHEMISTRY METHOD 08/31/2025 8:54 AM [facility] CO2 28 21 - 32 mmol/L LAB CHEMISTRY METHOD 08/31/2025 8:54 AM [facility] Anion Gap 6 3 - 11 LAB CHEMISTRY METHOD 08/31/2025 8:54 AM [facility] Glucose 71 70 - 100 mg/dL LAB CHEMISTRY METHOD 08/31/2025 8:54 AM [facility] BUN 9 5 - 25 mg/dL LAB CHEMISTRY METHOD 08/31/2025 8:54 AM [facility] Creatinine 0.54 0.50 - 1.10 mg/dL LAB CHEMISTRY METHOD 08/31/2025 8:54 AM [facility] eGFR 116 >=60 mL/min/1. 73m2 LAB CHEMISTRY METHOD 08/31/2025 8:54 AM [facility] Comment:Calculation based on the Chronic Kidney Disease Epidemiology Collaboration (CKD-EPI) equation refit without adjustment for race. BUN/Creatinine Ratio 16.7 LAB CHEMISTRY METHOD 08/31/2025 8:54 AM [facility] Calcium 8.7 8.5 - 10.5 mg/dL LAB CHEMISTRY METHOD 08/31/2025 8:54 AM [facility] AST (SGOT) 6(L) 10 - 42 unit/L LAB CHEMISTRY METHOD 08/31/2025 8:54 AM [facility] ALT (SGPT) 10 10 - 60 unit/L LAB CHEMISTRY METHOD 08/31/2025 8:54 AM [facility] Alkaline Phosphatase 69 42 - 121 unit/L LAB CHEMISTRY METHOD 08/31/2025 8:54 AM [facility] Total Protein 6.3 6.0 - 8.0 g/dL LAB CHEMISTRY METHOD 08/31/2025 8:54 AM [facility] Albumin 2.9(L) 3.2 - 5.0 g/dL LAB CHEMISTRY METHOD 08/31/2025 8:54 AM [facility] Total Bilirubin 0.2 0.0 - 1.4 mg/dL LAB CHEMISTRY METHOD 08/31/2025 8:54 AM EST [facility] Blood Venous blood specimen / Unknown 08/31/2025 6:50 AM EST 08/31/2025 8:13 AM EST us Ulysses Judd MD LAB BLOOD ORDERABLES Final Resul t [facility] [address] [place] [address], documented in this encounter Visit Diagnoses Diagnosis Hyperlipidemia, unspecified Encounter for screening for other suspected endocrine disorder Type 2 diabetes mellitus with hyperglycemia (CMS/[facility] V24, [facility] V28) Encounter for therapeutic drug level monitoring documented in this encounter Care Teams [employer] Member Relationship Specialty Start Date End Date Ulysses Judd MD [address] [place], [place] PCP - General Internal Medicine 03/01/25 documented as of this encounter
== END 2025-10-18 12:38 | disposition home or self-care (01) ==
LOC: HO.SH 12:37
PROVIDERS: Visit Provider Hospitalist
DX: H90.3 Sensorineural hearing loss, bilateral (principal)
CPT/HCPCS: 92557; 92567